=== PATIENT | male | born 1965 | race African-American/Black ===

== ENCOUNTER → 2017-07-30 | Outpatient (CLI) | payer SELFPAY ==
--- NOTE | 2017-07-30 13:13 | Diagnostic Imaging Report ---
PROCEDURE: US carotid duplex, bilateral. TECHNIQUE: Multiple real-time grayscale images were obtained over the carotid arteries in various projections, bilaterally. Additional duplex Doppler and color Doppler images were also obtained. INDICATION: Near syncope for several years. TECHNIQUE: Multiple real-time images with color Doppler imaging were performed. Doppler velocity and waveform data were obtained. The cervical carotid and vertebral arteries were evaluated. FINDINGS: Color and grayscale images demonstrate mild scattered atheromatous plaque and areas of intimal thickening involving the carotid arteries, particularly at the carotid bifurcations. However, there are no abnormally elevated velocities or findings to suggest significant stenosis of the carotid arteries at this time. External carotid arteries are patent. Vertebral arteries are with antegrade direction of flow. IMPRESSION: 1. Carotid Doppler imaging demonstrates no findings to suggest a hemodynamically significant stenosis at this time. Parameters based on the consensus panel Leal-Scale and Doppler ultrasound criteria published December 2002, Radiology, Volume 229. DOPPLER (peak systolic velocity M/S Right Left CCA 1.05 1.08 ICA Proximal .74 1.03 ICA Mid .67 .92 ICA Distal .65 .79 RATIO .7 1.0 ECA .71 .99 VERT .37 .45 Dictated by: Dictated on workstation # [id number]
== END ==
LOC: RAD 10:54
PROVIDERS: ATTEND Internal Medicine
DX: R55 Syncope and collapse (principal)
CPT/HCPCS: 93880

== ENCOUNTER → 2018-01-31 | Outpatient (CLI) | payer MEDICAID ==
--- NOTE | 2018-01-31 13:07 | Diagnostic Imaging Report ---
PROCEDURE: MR imaging of the brain without contrast. TECHNIQUE: Multiplanar, multisequence MR imaging of the brain was performed without contrast. INDICATION: Syncopal type episodes. COMPARISON: No priors. FINDINGS: There are no foci of abnormal diffusion restriction. There are no findings of an acute or subacute intracranial ischemic infarct. There are no findings of acute or chronic hemorrhage. There is no abnormal extra-axial fluid collection. There is no focal or generalized cerebral edema. Incidental ventricular variant with a cavum septum pellucidum present. There is no hydrocephalus. No suspicious white matter signal abnormalities. Orbits, paranasal sinuses, mastoids, and cerebellopontine angles have an unremarkable appearance. The midline structures are nondisplaced. No calvarial signal abnormality apparent. IMPRESSION: This is a normal brain MRI. Dictated by: Dictated on workstation # [id number]
== END ==
LOC: RAD 11:07
PROVIDERS: ATTEND Internal Medicine
DX: G40.A09 Absence epileptic syndrome, not intractable, without status epilepticus (principal); R55 Syncope and collapse
CPT/HCPCS: 70551

== ENCOUNTER 2018-04-01 14:12 | Observation (INO) | payer MEDICAID ==
[~2018-04-01] VITALS: Ht 175.3 cm; Wt 87.1 kg
--- NOTE | 2018-04-01 14:57 | NUR ---
JAMIE ECHAVARRIA admitted to room 411-1, with an admitting diagnosis of diverticulitis , on 04/01/[address] Bynum office (direct admit), accompanied by .JAMIE ECHAVARRIA introduced to surroundings, call light, bed controls, phone, TV, temperature control, lights, meal times, smoking policy, visitor policy, side rail policy, bathrooms and showers. Patient Rights given to patient in the handbook. JAMIE ECHAVARRIA verbalizes understanding that [facility] is not responsible for the loss or damage to any personal effects or valuables that are kept in the patients posession during their hospitalization. The following Patient Care Plans and discharge plans were discussed with the patient. JAMIE ECHAVARRIA verbalizes understanding of Interdisciplinary Patient Education.
[2018-04-01] MEDS ORDERED: PIPERACILLIN/TAZO 4.5 GM/NS 100 ML IV NR ×2 (15:06)
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
--- OUTSIDE RECORDS SUMMARY | 2018-04-01 15:09 | XMS REPORT ---
Author Author DONALDO PEREZ Organization [facility] Address [address] [place] [address] Care Team Providers Care Tester Operator Name Role Phone DONALDO PEREZ Unavailable PROBLEMS Type Condition ICD9-CM Code XQI17-UI Code Onset Dates Condition Status SNOMED Code Problem Adjustment disorder with mixed emotional features F43.29 Active 41398863 Problem Chronic polyneuropathy G62.9 Active 22091892 Problem Arthritis M19.90 Active 1492301 Problem Reactive depression F32.9 Active 78737919 Problem Neuropathy G62.9 Active 849849055 Problem History of gout Z87.39 Active 979441428 Problem Near syncope R55 Active 055566657 ALLERGIES No Information ENCOUNTERS Encounter Location Date Diagnosis [facility] [id number] [place] [address] 69768- 2443 Nov, [facility] [id number] [place] [address] 96137- 0621 17 Oct, 2017 Adjustment disorder with mixed emotional features F43.29 [facility] [id number] [place] [address] 10396- 1524 12 Oct, 2017 [facility] [id number] [place] [address] 36719- 6710 Oct, [facility] [id number] [place] [address] 04462- 4735 10 Oct, 2017 Neuropathy G62.9 [facility] [id number] [place] [address] 89145- 3714 16 Sep, 2017 Chronic polyneuropathy G62.9 [facility] [id number] [place] [address] 74544- 4734 15 Sep, 2017 [facility] [id number] [place] [address] 83207- 9848 Sep, Adjustment disorder with mixed emotional features F43.29 [place] [address] [place] [address] 61772- 7991 Sep, Neuropathy G62.9 [facility] [address] [place] [address] 41133- 3565 Sep, Neuropathy G62.9 and Arthritis M19.90 [place] [id number] [place] [address] 62280- 1507 Aug, [place] [id number] [place] [address] 88557- 5116 Aug, Adjustment disorder with mixed emotional features F43.29 [place] [address] [place] [address] 80418- 4665 Aug, [place] [id number] [place] [address] 91797- 6983 Aug, [place] [id number] [place] [address] 03676- 4955 Aug, Neuropathy G62.9 ; Reactive depression F32.9 ; History of gout Z87.39 and Arthritis M19.90 [place] [address] [place] [address] 71275- 2008 Jul, [place] [address] [place] [address] 68025- 1670 Jul, [place] [id number] [place] [address] 68807- 1168 Jul, Neuropathy G62.9 ; History of gout Z87.39 ; Routine adult health maintenance Z00.00 ; Near syncope R55 and Reactive depression F32.9 IMMUNIZATIONS No Known Immunizations SOCIAL HISTORY Never Assessed REASON FOR VISIT Refill request PLAN OF CARE VITAL SIGNS MEDICATIONS Unknown [...]
--- OUTSIDE RECORDS SUMMARY | 2018-04-01 15:09 | XMS REPORT ---
Author Author DONALDO PEREZ Organization [facility] Address [address] [place] [address] Care Team Providers Care Rn Clinical Review Name Role Phone DONALDO PEREZ Unavailable PROBLEMS Type Condition ICD9-CM Code [id number] Code Onset Dates Condition Status SNOMED Code Problem Adjustment disorder with mixed emotional features F43.29 Active 63945601 Problem Chronic polyneuropathy G62.9 Active 97581021 Problem Arthritis M19.90 Active 7920628 Problem Reactive depression F32.9 Active 39133959 Problem Neuropathy G62.9 Active 445784042 Problem History of gout Z87.39 Active 384385221 Problem Near syncope R55 Active 839401100 ALLERGIES No Information ENCOUNTERS Encounter Location Date Diagnosis [facility] [id number] [place] [address] 33259- 6959 Nov, [facility] [id number] [place] [address] 21196- 6972 17 Oct, 2017 Adjustment disorder with mixed emotional features F43.29 [facility] [id number] [place] [address] 80344- 2584 12 Oct, 2017 [facility] [id number] [place] [address] 68393- 8791 Oct, [facility] [id number] [place] [address] 54943- 4574 10 Oct, 2017 Neuropathy G62.9 [facility] [id number] [place] [address] 41961- 7480 16 Sep, 2017 Chronic polyneuropathy G62.9 [facility] [id number] [place] [address] 71666- 3794 15 Sep, 2017 [facility] [id number] [place] [address] 90263- 4014 Sep, Adjustment disorder with mixed emotional features F43.29 [place] [id number] [place] [address] 90872- 4047 Sep, Neuropathy G62.9 [place] [address] [place] [address] 30366- 2331 Sep, Neuropathy G62.9 and Arthritis M19.90 [place] [id number] [place] [address] 22407- 4285 Aug, [place] [id number] [place] [address] 19848- 4613 Aug, Adjustment disorder with mixed emotional features F43.29 [place] [address] [place] [address] 99437- 7444 Aug, [place] [id number] [place] [address] 63968- 5237 Aug, [place] [id number] [place] [address] 23595- 0623 Aug, Neuropathy G62.9 ; Reactive depression F32.9 ; History of gout Z87.39 and Arthritis M19.90 [place] [address] [place] [address] 81267- 9035 Jul, [place] [address] [place] [address] 55928- 0556 Jul, [place] [id number] [place] [address] 17885- 0579 Jul, Neuropathy G62.9 ; History of gout Z87.39 ; Routine adult health maintenance Z00.00 ; Near syncope R55 and Reactive depression F32.9 IMMUNIZATIONS No Known Immunizations SOCIAL HISTORY Never Assessed REASON FOR VISIT Controlled Med Refill PLAN OF CARE VITAL SIGNS MEDICATIONS Medication Instructions Dosage Frequency Start Date End Date Duration Status Lyrica 100 mg Orally Three times a day 1 capsule 8h Jul, Active RESULTS No Results PROCEDURES No Known procedures [...]
--- OUTSIDE RECORDS SUMMARY | 2018-04-01 15:09 | XMS REPORT ---
Author Author DONALDO PEREZ Organization [facility] Address [address] [place] [address] Care Team Providers Care Mold Builder Name Role Phone DONALDO PEREZ Unavailable PROBLEMS Type Condition ICD9-CM Code [id number] Code Onset Dates Condition Status SNOMED Code Problem Adjustment disorder with mixed emotional features F43.29 Active 03323094 Problem Chronic polyneuropathy G62.9 Active 53705009 Problem Arthritis M19.90 Active 8344199 Problem Reactive depression F32.9 Active 23572153 Problem Neuropathy G62.9 Active 128649452 Problem History of gout Z87.39 Active 306613394 Problem Near syncope R55 Active 027378317 ALLERGIES No Information ENCOUNTERS Encounter Location Date Diagnosis [facility] [id number] [place] [address] 31500- 7806 Nov, [facility] [id number] [place] [address] 66536- 7787 17 Oct, 2017 Adjustment disorder with mixed emotional features F43.29 [facility] [id number] [place] [address] 37995- 7051 12 Oct, 2017 [facility] [id number] [place] [address] 56071- 6216 Oct, [facility] [id number] [place] [address] 06621- 8984 10 Oct, 2017 Neuropathy G62.9 [facility] [id number] [place] [address] 91942- 2261 16 Sep, 2017 Chronic polyneuropathy G62.9 [facility] [id number] [place] [address] 01137- 0514 15 Sep, 2017 [facility] [id number] [place] [address] 44849- 5228 Sep, Adjustment disorder with mixed emotional features F43.29 [place] [id number] [place] [address] 23435- 4183 Sep, Neuropathy G62.9 [place] [address] [place] [address] 41263- 0693 Sep, Neuropathy G62.9 and Arthritis M19.90 [place] [id number] [place] [address] 46919- 2854 Aug, [place] [id number] [place] [address] 26731- 3492 Aug, Adjustment disorder with mixed emotional features F43.29 [place] [address] [place] [address] 16241- 7113 Aug, [place] [id number] [place] [address] 86206- 1114 Aug, [place] [id number] [place] [address] 26107- 2088 Aug, Neuropathy G62.9 ; Reactive depression F32.9 ; History of gout Z87.39 and Arthritis M19.90 [place] [address] [place] [address] 46635- 1614 Jul, [place] [address] [place] [address] 01117- 4209 Jul, [place] [id number] [place] [address] 28345- 0034 Jul, Neuropathy G62.9 ; History of gout Z87.39 ; Routine adult health maintenance Z00.00 ; Near syncope R55 and Reactive depression F32.9 IMMUNIZATIONS No Known Immunizations SOCIAL HISTORY Never Assessed REASON FOR VISIT Requests return call PLAN OF CARE VITAL SIGNS MEDICATIONS Medication Instructions Dosage Frequency Start Date End Date Duration Status Gabapentin 300 MG Orally 3 times a day 1 capsule 8h 30 days Active RESULTS No Results PROCEDURES No Known [...]
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
--- OUTSIDE RECORDS SUMMARY | 2018-04-01 15:09 | XMS REPORT ---
Author Author DONALDO PEREZ Organization [facility] Address [address] [place] [address] Care Team Providers Care Stud Setter Name Role Phone DONALDO PEREZ Unavailable PROBLEMS Type Condition ICD9-CM Code SFG42-XL Code Onset Dates Condition Status SNOMED Code Problem Adjustment disorder with mixed emotional features F43.29 Active 68738022 Problem Chronic polyneuropathy G62.9 Active 68423760 Problem Arthritis M19.90 Active 9442126 Problem Reactive depression F32.9 Active 93776087 Problem Neuropathy G62.9 Active 021614040 Problem History of gout Z87.39 Active 102445165 Problem Near syncope R55 Active [id number] ALLERGIES No Information ENCOUNTERS Encounter Location Date Diagnosis [facility] [address] [place] [id number] [place] [address] 89920- 1094 Nov, [facility] [address] [place] [id number] [place] [address] 10708- 0843 17 Oct, 2017 Adjustment disorder with mixed emotional features F43.29 [facility] [address] [place] [id number] [place] [address] 88894- 6608 12 Oct, 2017 [facility] [address] [place] [id number] [place] [address] 34303- 6951 Oct, [facility] [address] [place] [id number] [place] [address] 06464- 9083 10 Oct, 2017 Neuropathy G62.9 [facility] [address] [place] [id number] [place] [address] 16150- 9453 16 Sep, 2017 Chronic polyneuropathy G62.9 [facility] [address] [place] [id number] [place] [address] 06200- 2961 15 Sep, 2017 [facility] [address] [place] [id number] [place] [address] 41343- 4446 Sep, Adjustment disorder with mixed emotional features F43.29 [place] [address] [place] [id number] [place] [address] 84370- 0288 Sep, Neuropathy G62.9 [place] [address] [place] [address] 59581- 8498 Sep, Neuropathy G62.9 and Arthritis M19.90 [place] [address] [place] [id number] [place] [address] 29677- 6587 Aug, [place] [address] [place] [id number] [place] [address] 52749- 4643 Aug, Adjustment disorder with mixed emotional features F43.29 [place] [address] [place] [address] 40735- 0601 Aug, [place] [address] [place] [id number] [place] [address] 91782- 4548 Aug, [place] [address] [place] [id number] [place] [address] 14376- 7801 Aug, Neuropathy G62.9 ; Reactive depression F32.9 ; History of gout Z87.39 and Arthritis M19.90 [place] [address] [place] [address] 90411- 5302 Jul, [place] [address] [place] [address] 60013- 4471 Jul, [place] [address] [place] [id number] [place] [address] 00278- 9697 Jul, Neuropathy G62.9 ; History of gout Z87.39 ; Routine adult health maintenance Z00.00 ; Near syncope R55 and Reactive depression F32.9 IMMUNIZATIONS No Known Immunizations SOCIAL HISTORY Never Assessed REASON FOR VISIT Medication refill request PLAN OF CARE VITAL SIGNS MEDICATIONS Medication Instructions Dosage Frequency Start Date End Date Duration Status Gabapentin 600 MG Orally 3 times a [...]
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
--- OUTSIDE RECORDS SUMMARY | 2018-04-01 15:10 | XMS REPORT ---
Author Author DONALDO PEREZ Organization [facility] Address [address] [place] [address] Care Team Providers Care Securities Counselor Name Role Phone DONALDO PEREZ Unavailable PROBLEMS Type Condition ICD9-CM Code CQO41-SC Code Onset Dates Condition Status SNOMED Code Problem Adjustment disorder with mixed emotional features F43.29 Active 15994519 Problem Chronic polyneuropathy G62.9 Active 70583770 Problem Arthritis M19.90 Active 7383929 Problem Reactive depression F32.9 Active 22731719 Problem Neuropathy G62.9 Active 475961132 Problem History of gout Z87.39 Active 682999001 Problem Near syncope R55 Active 836722776 ALLERGIES No Known Allergies ENCOUNTERS Encounter Location Date Diagnosis [facility] [address] [place] [id number] [place] [address] 91210- 7012 Oct, [facility] [address] 54739- 1347 Sep, Chronic polyneuropathy G62.9 [facility] [address] [place] [id number] [place] [address] 55573- 0369 Sep, [facility] [address] [place] [id number] [place] [address] 93543- 6888 Sep, Adjustment disorder with mixed emotional features F43.29 [facility] [address] [place] [id number] [place] [address] 35064- 0488 Sep, Neuropathy G62.9 [facility] [address] [place] [id number] [place] [address] 38208- 9159 Sep, Neuropathy G62.9 and Arthritis M19.90 [facility] [address] [place] [id number] [place] [address] 07031- 6359 Aug, [place] [address] [address]- 1631 Aug, Adjustment disorder with mixed emotional features F43.29 [place] [address] [place] [id number] [place] [address] 00895- 0405 Aug, [place] [address] [place] [address] 62078- 2084 Aug, [place] [address] [place] [id number] [place] [address] 27477- 1879 Aug, Neuropathy G62.9 ; Reactive depression F32.9 ; History of gout Z87.39 and Arthritis M19.90 [place] [address] [place] [id number] [place] [address] 02089- 1860 Jul, [place] [address] [place] [id number] [place] [address] 96998- 6223 Jul, [place] [address] [place] [id number] [place] [address] 58533- 4057 Jul, Neuropathy G62.9 ; History of gout Z87.39 ; Routine adult health maintenance Z00.00 ; Near syncope R55 and Reactive depression F32.9 IMMUNIZATIONS No Known Immunizations SOCIAL HISTORY Never Assessed REASON FOR VISIT HOLLIS Brasher/Idris SOW, concerns wit right hand gripping and bruises in legs and frequent dizzyness, PT also has been having issues staying focused PLAN OF CARE Activity Details Follow Up 4 Weeks Reason: VITAL SIGNS Height 68.5 in 2017-08-26 Weight 197.7 lbs 2017-08-26 Temperature 98.6 degrees Fahrenheit 2017-08-26 Heart Rate 74 bpm 2017-08-26 Respiratory Rate 20 2017-08-26 Oximetry 97 % 2017-08-26 BMI 29.62 kg/m2 2017-08-26 Blood pressure systolic 134 mmHg 2017-08-26 Blood pressure diastolic 80 mmHg 2017-08-26 MEDICATIONS Medication Instructions Dosage Frequency Start Date End Date Duration Status Allopurinol 300 MG Orally Once a day 1 tablet 24h Active Lyrica 100 mg Orally Three times a day 1 capsule 8h Jul, Active Wellbutrin SR 100 mg Orally Once a day 1 tablet in the morning 24h Aug, 30 day(s) Active Calcipotriene 0.005 % Externally Twice a day 1 application to affected area 12h Active Meloxicam 15 mg Orally Once a day 1 tablet 24h Active RESULTS No Results PROCEDURES No Known [...]
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
--- OUTSIDE RECORDS SUMMARY | 2018-04-01 15:10 | XMS REPORT ---
Author Author DONALDO PEREZ Organization [facility] Address [address] [place] [address] Care Team Providers Care Lead Database Developer Name Role Phone DONALDO PEREZ Unavailable PROBLEMS Type Condition ICD9-CM Code SCX30-XB Code Onset Dates Condition Status SNOMED Code Problem Adjustment disorder with mixed emotional features F43.29 Active 84539280 Problem Chronic polyneuropathy G62.9 Active 25433713 Problem Arthritis M19.90 Active 8447366 Problem Reactive depression F32.9 Active 85871707 Problem Neuropathy G62.9 Active 725830632 Problem History of gout Z87.39 Active 510156949 Problem Near syncope R55 Active 119180814 ALLERGIES No Information ENCOUNTERS Encounter Location Date Diagnosis [facility] [id number] [place] [address] 70411- 9535 Oct, [facility] [address] 31224- 3339 Sep, Chronic polyneuropathy G62.9 [facility] [id number] [place] [address] 74795- 3075 Sep, [facility] [id number] [place] [address] 62791- 9677 Sep, Adjustment disorder with mixed emotional features F43.29 [facility] [id number] [place] [address] 36339- 1133 Sep, Neuropathy G62.9 [facility] [address] 13419- 0788 Sep, Neuropathy G62.9 and Arthritis M19.90 [facility] [id number] [place] [address] 36467- 0557 Aug, [facility] [address], [place] [address]- 6515 Aug, Adjustment disorder with mixed emotional features F43.29 [place] [id number] [place] [address] 52162- 7535 Aug, [facility] [address] [place] [address] 26906- 2402 Aug, [facility] [id number] [place] [address] 91349- 1330 Aug, Neuropathy G62.9 ; Reactive depression F32.9 ; History of gout Z87.39 and Arthritis M19.90 [place] [id number] [place] [address] 88595- 4059 Jul, [place] [id number] [place] [address] 13246- 8730 Jul, [place] [id number] [place] [address] 44898- 1472 Jul, Neuropathy G62.9 ; History of gout Z87.39 ; Routine adult health maintenance Z00.00 ; Near syncope R55 and Reactive depression F32.9 IMMUNIZATIONS No Known Immunizations SOCIAL HISTORY Never Assessed REASON FOR VISIT Prior Authorization Approved PLAN OF CARE VITAL SIGNS MEDICATIONS Unknown [...]
--- OUTSIDE RECORDS SUMMARY | 2018-04-01 15:10 | XMS REPORT ---
Author Author MARIBEL LOPEZ [facility] Address [address] [place] [address] Care Team Providers Care Operations Support Coordinator Name Role Phone MARIBEL LOPEZ Unavailable PROBLEMS Type Condition ICD9-CM Code MYA66-OY Code Onset Dates Condition Status SNOMED Code Problem Adjustment disorder with mixed emotional features F43.29 Active 15628059 Problem Chronic polyneuropathy G62.9 Active 84032911 Problem Arthritis M19.90 Active 4685439 Problem Reactive depression F32.9 Active 05016026 Problem Neuropathy G62.9 Active 407601488 Problem History of gout Z87.39 Active 751763542 Problem Near syncope R55 Active 718750636 ALLERGIES No Information ENCOUNTERS Encounter Location Date Diagnosis [facility] [id number] [place] [address] 72359- 7989 Oct, [facility] [id number] [place] [address] 91795- 0616 Sep, Chronic polyneuropathy G62.9 [facility] [id number] [place] [address] 93790- 7912 Sep, [facility] [id number] [place] [address] 27339- 8166 Sep, Adjustment disorder with mixed emotional features F43.29 [facility] [id number] [place] [address] 59692- 6064 13 Sep, 2017 Neuropathy G62.9 [facility] [id number] [place] [address] 27004- 2485 Sep, Neuropathy G62.9 and Arthritis M19.90 [facility] [id number] [place] [address] 08328- 2051 Aug, [facility] [address], [place] [address]- 8004 Aug, Adjustment disorder with mixed emotional features F43.29 [place] [address] [place] [address] 03575- 9986 Aug, [facility] [facility] [id number] [place] [address] 86696- 2122 Aug, [facility] [facility] [id number] [place] [address] 81023- 9641 Aug, Neuropathy G62.9 ; Reactive depression F32.9 ; History of gout Z87.39 and Arthritis M19.90 [place] [facility] [id number] [place] [address] 61723- 9619 Jul, [facility] [facility] [id number] [place] [address] 73988- 2629 Jul, [facility] [facility] [id number] [place] [address] 25036- 5517 Jul, Neuropathy G62.9 ; History of gout Z87.39 ; Routine adult health maintenance Z00.00 ; Near syncope R55 and Reactive depression F32.9 IMMUNIZATIONS No Known Immunizations SOCIAL HISTORY Never Assessed REASON FOR VISIT Requests return call PLAN OF CARE VITAL SIGNS MEDICATIONS Unknown [...]
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
--- OUTSIDE RECORDS SUMMARY | 2018-04-01 15:10 | XMS REPORT ---
Author Author DONALOD PEREZ Organization [facility] Address [address] [place] [address] Care Team Providers Care Oil Well Pumper Name Role Phone DONALDO PEREZ Unavailable PROBLEMS Type Condition ICD9-CM Code EZO54-KY Code Onset Dates Condition Status SNOMED Code Problem Adjustment disorder with mixed emotional features F43.29 Active 77109363 Problem Chronic polyneuropathy G62.9 Active 63381145 Problem Arthritis M19.90 Active 7091628 Problem Reactive depression F32.9 Active 05388377 Problem Neuropathy G62.9 Active 452165489 Problem History of gout Z87.39 Active 112565298 Problem Near syncope R55 Active 233219317 ALLERGIES No Information ENCOUNTERS Encounter Location Date Diagnosis [facility] [id number] [place] [address] 19098- 7530 Oct, [facility] [address] 62355- 2772 Sep, Chronic polyneuropathy G62.9 [facility] [id number] [place] [address] 06928- 5129 Sep, [facility] [id number] [place] [address] 14649- 3810 Sep, Adjustment disorder with mixed emotional features F43.29 [facility] [id number] [place] [address] 97829- 4245 13 Sep, 2017 Neuropathy G62.9 [facility] [address] 05828- 5380 09 Sep, 2017 Neuropathy G62.9 and Arthritis M19.90 [facility] [id number] [place] [address] 53323- 9669 Aug, [facility] [address], [place] [address]- 8007 Aug, Adjustment disorder with mixed emotional features F43.29 [facility] [address] [place] [address] 82978- 2517 Aug, [facility] [address] [place] [address] 54428- 5699 Aug, [facility] [id number] [place] [address] 80174- 7595 Aug, Neuropathy G62.9 ; Reactive depression F32.9 ; History of gout Z87.39 and Arthritis M19.90 [place] [id number] [place] [address] 50681- 4902 Jul, [facility] [id number] [place] [address] 10005- 0900 Jul, [place] [id number] [place] [address] 60344- 0798 Jul, Neuropathy G62.9 ; History of gout Z87.39 ; Routine adult health maintenance Z00.00 ; Near syncope R55 and Reactive depression F32.9 IMMUNIZATIONS No Known Immunizations SOCIAL HISTORY Never Assessed REASON FOR VISIT schedule appt PLAN OF CARE VITAL SIGNS MEDICATIONS Unknown [...]
--- OUTSIDE RECORDS SUMMARY | 2018-04-01 15:10 | XMS REPORT ---
Author Author DONALDO PEREZ Organization [facility] Address [address] [place] [address] Care Team Providers Care Healthcare Corporate Account Director Name Role Phone DONALDO PEREZ Unavailable PROBLEMS Type Condition ICD9-CM Code YOZ19-HX Code Onset Dates Condition Status SNOMED Code Problem Adjustment disorder with mixed emotional features F43.29 Active 82676848 Problem Chronic polyneuropathy G62.9 Active 36182395 Problem Arthritis M19.90 Active 2838487 Problem Reactive depression F32.9 Active 11398345 Problem Neuropathy G62.9 Active 256946239 Problem History of gout Z87.39 Active 760777480 Problem Near syncope R55 Active 564327281 ALLERGIES No Information ENCOUNTERS Encounter Location Date Diagnosis [facility] [id number] [place] [address] 05567- 0812 17 Oct, 2017 [facility] [id number] [place] [address] 85732- 0446 12 Oct, 2017 [facility] [id number] [place] [address] 17979- 5435 Oct, [facility] [id number] [place] [address] 92966- 5881 10 Oct, 2017 Neuropathy G62.9 [facility] [id number] [place] [address] 38842- 6585 16 Sep, 2017 Chronic polyneuropathy G62.9 [facility] [id number] [place] [address] 14939- 5202 15 Sep, 2017 [facility] [id number] [place] [address] 27488- 7634 Sep, Adjustment disorder with mixed emotional features F43.29 [facility] [id number] [place] [address] 42237- 1416 Sep, Neuropathy G62.9 [facility] [address], [place] [address]- 0472 Sep, Neuropathy G62.9 and Arthritis M19.90 [facility] [address] [place] [address] 19836- 1838 Aug, [facility] [id number] [place] [address] 39926- 7477 Aug, Adjustment disorder with mixed emotional features F43.29 [place] [id number] [place] [address] 03170- 4516 Aug, [place] [id number] [place] [address] 94008- 1426 Aug, [facility] [address] [place] [address] 28300- 3642 Aug, Neuropathy G62.9 ; Reactive depression F32.9 ; History of gout Z87.39 and Arthritis M19.90 [facility] [address], [place] [address]- 6782 Jul, [place] [id number] [place] [address] 07620- 5155 Jul, [facility] [address], [place] [address]- 1177 Jul, Neuropathy G62.9 ; History of gout Z87.39 ; Routine adult health maintenance Z00.00 ; Near syncope R55 and Reactive depression F32.9 IMMUNIZATIONS No Known Immunizations SOCIAL HISTORY Never Assessed REASON FOR VISIT Eye Exam PLAN OF CARE VITAL SIGNS MEDICATIONS Unknown [...]
--- OUTSIDE RECORDS SUMMARY | 2018-04-01 15:10 | XMS REPORT ---
Author Author DONALDO PEREZ Organization [facility] Address [address] [place] [address] Care Team Providers Care Stave Mill Hand Name Role Phone DONALDO PEREZ Unavailable PROBLEMS Type Condition ICD9-CM Code UGO15-IL Code Onset Dates Condition Status SNOMED Code Problem Adjustment disorder with mixed emotional features F43.29 Active 81655039 Problem Chronic polyneuropathy G62.9 Active 36307465 Problem Arthritis M19.90 Active 8019461 Problem Reactive depression F32.9 Active 64314018 Problem Neuropathy G62.9 Active 716475723 Problem History of gout Z87.39 Active 203155249 Problem Near syncope R55 Active 127715758 ALLERGIES No Information ENCOUNTERS Encounter Location Date Diagnosis [facility] [id number] [place] [address] 69909- 6570 Nov, [facility] [id number] [place] [address] 40223- 3779 17 Oct, 2017 Adjustment disorder with mixed emotional features F43.29 [facility] [address] [place] [address] 04709- 5251 12 Oct, 2017 [facility] [id number] [place] [address] 15391- 4306 Oct, [facility] [id number] [place] [address] 39503- 1101 10 Oct, 2017 Neuropathy G62.9 [facility] [id number] [place] [address] 37255- 9832 16 Sep, 2017 Chronic polyneuropathy G62.9 [facility] [id number] [place] [address] 17236- 6031 15 Sep, 2017 [facility] [id number] [place] [address] 54797- 0862 Sep, Adjustment disorder with mixed emotional features F43.29 [place] [id number] [place] [address] 11492- 0752 Sep, Neuropathy G62.9 [place] [address] [place] [address] 75419- 5574 Sep, Neuropathy G62.9 and Arthritis M19.90 [place] [id number] [place] [address] 51340- 8958 Aug, [place] [id number] [place] [address] 06859- 1591 Aug, Adjustment disorder with mixed emotional features F43.29 [place] [address] [place] [address] 49945- 3570 Aug, [place] [id number] [place] [address] 00212- 1507 Aug, [place] [id number] [place] [address] 34551- 3410 Aug, Neuropathy G62.9 ; Reactive depression F32.9 ; History of gout Z87.39 and Arthritis M19.90 [place] [address] [place] [address] 43845- 7289 Jul, [place] [address] [place] [address] 77229- 5931 Jul, [place] [id number] [place] [address] 90200- 8592 Jul, Neuropathy G62.9 ; History of gout [...]
[2018-04-01] MEDS ORDERED: CATHETER FLUSH 10 ML SYR IV PRN ×2 (15:15→17:30)
[2018-04-01] MEDS: LACTATED RINGERS 1,000 ML IV SCH (15:39)
[2018-04-01] MEDS: PANTOPRAZOLE 40 MG (PROTONIX) VIAL IV SCH (15:40)
[2018-04-01] MEDS ORDERED: CIPR500T4 PO (15:46)
[2018-04-01] MEDS ORDERED: NICOTINE 21 MG (NICODERM) PATCH ONE (15:46)
[2018-04-01] MEDS ORDERED: METR-145 PO (15:46)
[2018-04-01] MEDS ORDERED: ASCO-262 PO (15:46)
[2018-04-01] MEDS ORDERED: ACET-2267 PO (15:46)
[2018-04-01] MEDS ORDERED: CYAN10006 PO (15:46)
[2018-04-01] MEDS ORDERED: GBPN600T PO (15:49)
[2018-04-01] MEDS ORDERED: MELO15TA39 PO (15:49)
[2018-04-01] MEDS ORDERED: ALLO300T2 PO (15:49)
[2018-04-01] MEDS ORDERED: GABA-488 PO (15:49)
[2018-04-01] MEDS: morphine INJ 4 MG/ML 1 ML (VIAL/SYRINGE) IV PRN ×3 (15:58→20:58)
[2018-04-01] MEDS: ONDANSETRON 4 MG/2 ML (SDV) Z0FRAN IV PRN (15:58)
[2018-04-01] MEDS ORDERED: FLU QUADRIvalent (5+ YOA) 2018-2019 (AFLURIA) 0.5 ML IM ONE (16:00)
[2018-04-01 16:01] VITALS: BP 101/59
--- NOTE | 2018-04-01 16:03 | NUR ---
SPOKE WITH THE PATIENT ABOUT HIS MEDICATIONS. HE LISTED WHAT HE IS TAKING AND I CALLED [facility] IN [place] TO VERIFY. IN ADDITION TO WHAT IS SHOWN ON THE EXT MED HX [facility] FILLED: 03-17-18 MOBIC 15MG DAILY #30 10-29-17 GABAPENTIN 300MG TID #90 (STATED 600 TID HOWEVER HAS NOT FILLED THAT STRENGTH AND 300MG IS PAST DUE FOR REFILL) 08-05 ALLOPURINOL 300MG DAILY HE STATES HE IS TAKING THE CIPRO AND FLAGYL HE HAD FILLED ON 03-27-18 - THE PERCOCET HE RECEIVED THAT DAY IS NOW GONE. HE TAKES TYLENOL PRN, VITAMIN C DAILY, AND B12 DAILY OTC.
[2018-04-01 16:26] LABS: HEMOGLOBIN 14.2 G/DL (13.3-17.7); MEAN PLATELET VOLUME 11.6 FL (7.4-10.4); RED CELL DISTRIBUTION WIDTH 12.9 % (10.0-14.5); WHITE BLOOD COUNT 4.3 10^3/uL (4.3-11.0)
[2018-04-01 16:40] LABS: ALANINE AMINOTRANSFERASE 48 U/L (0-55); ALBUMIN 4.3 GM/DL (3.2-4.5); ALKALINE PHOSPHATASE 71 U/L (40-136); BILIRUBIN,TOTAL 0.7 MG/DL (0.1-1.0); BUN/CREATININE RATIO 10; CALCIUM 9.3 MG/DL (8.5-10.1); CARBON DIOXIDE 25 MMOL/L (21-32); CHLORIDE 107 MMOL/L (98-107); CREATININE SERUM 1.15 MG/DL (0.60-1.30); GFR ESTIMATED > 60; GLUCOSE 98 MG/DL (70-105); POTASSIUM 3.8 MMOL/L (3.6-5.0); SODIUM 140 MMOL/L (135-145); TOTAL PROTEIN 6.8 GM/DL (6.4-8.2)
[2018-04-01] MEDS ORDERED: IOHEXOL 350 MG/ML 100 ML (OMNIPAQUE 350) VIAL IV ONE (17:30)
[2018-04-01] MEDS ORDERED: RECEIVED CONTRAST (Hold Metformin) IV SCH (17:30)
[2018-04-01] MEDS ORDERED: NS 100 ML (IVPB) BAG IV ONE (17:30)
--- NOTE | 2018-04-01 19:42 | Diagnostic Imaging Report ---
PROCEDURE: CT abdomen and pelvis with contrast. TECHNIQUE: Multiple contiguous axial images were obtained through the abdomen and pelvis after administration of intravenous contrast. INDICATION: Upper abdominal pain as well as left lower quadrant pain for three weeks. COMPARISON: No prior studies are available for comparison. FINDINGS: The lung bases are clear. No discrete liver mass is identified. The gallbladder is unremarkable. No biliary ductal dilatation is identified. The pancreas and spleen are unremarkable. No adrenal mass is identified. The kidneys are unremarkable. The aorta is non-aneurysmal. Bowel loops appear to be nonobstructed. The appendix is visualized in the right lower quadrant and unremarkable. There is no ascites. There is a fat-containing umbilical hernia. No herniated bowel loop is seen. The bladder is unremarkable. No abdominal or pelvic lymphadenopathy is seen. IMPRESSION: 1. Fat-containing umbilical hernia. 2. Otherwise, unremarkable CT of the abdomen and pelvis. No acute feature is detected. Dictated by: Dictated on workstation # [id number]
[2018-04-01] MEDS: PIPERACILLIN/TAZO 4.5 GM/NS 100 ML IV SCH ×2 (20:58)
[2018-04-01 21:00] VITALS: BP 118/77
[2018-04-01 23:28] VITALS: BP 122/68
[2018-04-02] MEDS: LACTATED RINGERS 1,000 ML IV SCH ×3 (00:03→12:06)
[2018-04-02] MEDS: morphine INJ 4 MG/ML 1 ML (VIAL/SYRINGE) IV PRN ×4 (01:11→13:19)
[2018-04-02 04:00] VITALS: BP 105/69
[2018-04-02] MEDS: PIPERACILLIN/TAZO 4.5 GM/NS 100 ML IV SCH ×4 (04:00→13:04)
[2018-04-02 08:00] VITALS: BP 113/74
[2018-04-02] MEDS ORDERED: NICOTINE PATCH REMOVAL TP SCH (08:59)
[2018-04-02] MEDS ORDERED: NICOTINE 21 MG (NICODERM) PATCH TD SCH (09:00)
[2018-04-02] MEDS: PANTOPRAZOLE 40 MG (PROTONIX) VIAL IV SCH (09:33)
--- NOTE | 2018-04-02 10:58 | Progress Note ---
Subjective Time Seen by a Provider: 10:31 Subjective/Events-last exam Pt seen and examined. He states he still has moderate abdominal pain that then causes nausea. He reports pain as mostly midline and left side (upper and lower ). He is having BMs and is hungry. Review of Systems General: No Chills, No Night Sweats Pulmonary: No Dyspnea, No Cough Cardiovascular: No: Chest Pain, Palpitations Gastrointestinal: Nausea, Abdominal Pain; No: Vomiting Genitourinary: Dysuria Objective Exam Vital Signs Date Time Temp Pulse Resp B/P (MAP) Pulse Ox O2 Delivery O2 Flow Rate FiO2 04/02/18 08:00 96.5 65 18 113/74 (87) 97 Room Air 04/02/18 04:00 97.2 68 16 105/69 (81) 97 Room Air 04/01/18 23:28 98.2 72 20 122/68 (86) 97 Room Air 04/01/18 21:00 97.9 70 20 118/77 (91) 96 Room Air 04/01/18 20:00 Room Air 04/01/18 18:21 Room Air 04/01/18 16:01 98.0 72 18 101/59 (73) 96 Room Air I & O 04/02/18 07:00 Intake Total 120 ml Output Total 550 ml Balance -430 ml Capillary Refill : General Appearance: No Apparent Distress, WD/WN HEENT: PERRL/EOMI, Pharynx Normal Respiratory: Chest Non Tender, Lungs Clear, Normal Breath Sounds, No Accessory Muscle Use, No Respiratory Distress Cardiovascular: Regular Rate, Rhythm, No Edema, No Murmur Gastrointestinal: normal bowel sounds, soft, tenderness (midepigastric, LUQ and LLQ), hernia (incarcerated Umbilical hernia) Neurologic/Psychiatric: Alert, Oriented x3, sap pi developer II-XII Norm as Tested Skin: Normal Color, Warm/Dry Results Lab Laboratory Tests 04/01/18 16:10: White Blood Count 4.3, Red Blood Count 4.34L, Hemoglobin 14.2, Hematocrit 42, Mean Corpuscular Volume 98, Mean Corpuscular Hemoglobin 33, Mean Corpuscular Hemoglobin Concent 34, Red Cell Distribution Width 12.9, Platelet Count 93L, Mean Platelet Volume 11.6H, Sodium Level 140, Potassium Level 3.8, Chloride Level 107, Carbon Dioxide Level 25, Anion Gap 8, Blood Urea Nitrogen 12, Creatinine 1.15, Estimat Glomerular Filtration Rate > 60, BUN/Creatinine Ratio 10, Glucose Level 98, Calcium Level 9.3, Corrected Calcium 9.1, Total Bilirubin 0.7, Aspartate Amino Transf (AST/SGOT) 34, Alanine Aminotransferase (ALT/SGPT) 48, Alkaline Phosphatase 71, Total Protein 6.8, Albumin 4.3 Assessment/Plan Assessment/Plan Assessment/Plan 1. Diverticulitis - resolved 2. Incarcerated UH - fat only, no intestine 3. Abdominal pain - unsure if secondary to #1 or #2 or both 4. Nausea Pt has abdominal pain but I am unsure of the etiology. CT from yesterday was read as no acute process, + incarcerated UH. I told pt the results and showed him the films. My recommendation is to go home with pain meds and anti-emetics. I also want him to stop all ABX, I really think it is the ABX causing his nausea. He states he has been having pain with lifting "for a long time". I think he needs a colonscopy as an outpt because of his age and at the same time I can look at his diverticula. As I explained in my office; there is only a 50% chance he will have another occurrence of Diverticulitis. I don't want to do surgery if he doesn't need it, plus at this point I wouldn't even know which part of colon to remove. I will get CD's of films from [facility] and [facility] to go over them. Then we can discuss repairing the incarcerated hernia; which I would not want to do if I thought he would need a colon resection any time soon. He understood all this and all questions answered to his satisfaction. Clinical Quality Measures DVT/VTE Risk/Contraindication: Risk Factor Score Per Nursin RFS Level Per Nursing on Admit: 2=Moderate MISAEL SAMUELS DO Apr 02, 2018 10:58
[2018-04-02] MEDS ORDERED: ONDA8TAB13 PO (11:00)
[2018-04-02] MEDS ORDERED: ACHD5005 PO (11:00)
--- NOTE | 2018-04-02 11:02 | Discharge Inst-Surgical ---
Discharge Inst-Surgical Depart Medication/Instructions New, Converted or Re-Newed RX: RX Given to Pt/Family (Leathafran transmitted to pharmacy) Patient Instructions Follow up Appt: Make appointment for 1 week. [phone] Instructions: No lifting greater than 20 pounds. No strenuous activity. May shower or take bath. Use incentive spirometer at home as directed. No Smoking Symptoms to Report: Appetite Changes, Extremity Discoloration, Numbness/Tingling, Swelling Increased , Bleeding Excessive, Eyesight Changes, Pain Increased, Urine Color Change, Constipation(Persistent), Fever over 101 degree F, Pain/Pressure in chest, Urinating Difficulty, Cough Up/Vomit Blood, Heart Beat Irreg/Pounding, Pain/ Pressure in jaw, Cramps in feet or legs, Lightheadedness, Pain/Pressure in shoulder, Diarrhea(Persistent), Memory Changes Suddenly, Questions/Concerns, Weight gain consecutive days, Dizziness/Fainting, Nausea/Vomiting, Shortness of Breath, Weight gain over 2 pounds If questions or concerns contact your physician Or seek help at emergency department. Activity Activity as Tolerated: Yes Diet Discharge Diet: Low Residue (high fiber, with lots of fluids) Diet After 24 Hours: Clear Liquid if Nauseous MISAEL SAMUELS DO Apr 02, 2018 11:02
[2018-04-02 12:00] VITALS: BP 126/87
[2018-04-02 12:10] LABS: BILIRUBIN,URINE NEGATIVE (NEGATIVE); CLARITY,URINE CLEAR; COLOR,URINE YELLOW; GLUCOSE, URINE (UA) NEGATIVE (NEGATIVE); KETONES,URINE NEGATIVE (NEGATIVE); LEUKOCYTE ESTERASE ,URINE 1+ (NEGATIVE); NITRITE,URINE NEGATIVE (NEGATIVE); PH,URINE 8 (5-9); PROTEIN,URINE NEGATIVE (NEGATIVE); UROBILINOGEN,URINE NORMAL (NORMAL)
[2018-04-02 12:33] LABS: WBC,URINE RARE /HPF
[2018-04-02 12:34] LABS: BACTERIA,URINE NEGATIVE /HPF; SQUAMOUS EPITHELIAL CELL,UR 0-2 /HPF
[2018-04-02] MEDS: ONDANSETRON 4 MG/2 ML (SDV) Z0FRAN IV PRN (13:19)
[2018-04-02] MEDS ORDERED: FLU QUADRIvalent (5+ YOA) 2018-2019 (AFLURIA) 0.5 ML IM ONE (13:45)
[2018-04-02 15:34] VITALS: BP 133/66
[2018-04-02 17:34] VITALS: BP 133/66
--- NOTE | 2018-04-07 10:22 | Physician Query-Final Dx ---
ARY MORELAND 04/07/18 1022: Final Diagnosis Give Final Diagnosis Please give Final Diagnosis MISAEL SAMUELS DO 04/14/18 1447: Final Diagnosis Give Final Diagnosis LLQ and MidEpigastric abdominal pain Resolving Acute Diverticulitis Incarcerated Umbilical Hernia ARY MORELAND Apr 07, 2018 10:22 MISAEL SAMUELS DO Apr 14, 2018 14:47
[2018-04-09] MEDS ORDERED: ACHD5005 PO (12:13)
== END 2018-04-02 10:49 | disposition home or self-care (01) ==
LOC: 4TH 14:30 → UNDOADMIN 14:52 → EDSTATUS 17:25 → UNDODISIN 04-02 17:37
PROVIDERS: ADMIT Surgery; ATTEND Surgery
DX: K57.92 Diverticulitis of intestine, part unspecified, without perforation or abscess without bleeding (principal); K42.0 Umbilical hernia with obstruction, without gangrene; R10.13 Epigastric pain; R10.12 Left upper quadrant pain
CPT/HCPCS: 36415; 74177; 80053; 81000; 85027; 90471; 90686; 99211; G0378

== ENCOUNTER → 2018-04-04 | Outpatient (CLI) | payer MEDICAID | END | disposition home or self-care (01) | LOC: PREOP 10:59 | PROVIDERS: ATTEND Surgery | DX: Z01.818 Encounter for other preprocedural examination (principal) ==

== ENCOUNTER 2018-04-07 09:13 | Day surgery (SDC) | payer MEDICAID ==
[~2018-04-07] VITALS: Ht 175.3 cm; Wt 87.1 kg
[~2018-04-07 09:13] MED LIST: ACET-2267 PO; ACHD5005 PO; ALLO300T2 PO; ASCO-262 PO; CIPR500T4 PO; CYAN10006 PO; GABA-488 PO; GBPN600T PO; MELO15TA39 PO; METR-145 PO; ONDA8TAB13 PO
[2018-04-07] MEDS ORDERED: LACTATED RINGERS 1,000 ML IV STA (09:21)
[2018-04-07] MEDS ORDERED: HURRICAINE EXT TUBE (BENZOCAINE) XX PRN (09:30)
--- NOTE | 2018-04-07 09:34 | Progress Note-Pre Operative ---
Pre-Operative Progress Note H&P Reviewed The H&P was reviewed, patient examined and no changes noted. Time Seen by Provider: 09:30 Date H&P Reviewed: Apr 07, 2018 Time H&P Reviewed: 09:31 Pre-Operative Diagnosis: Screening colonoscopy, abdominal pain, Gastritis MISAEL SAMUELS DO Apr 07, 2018 09:34
[2018-04-07 09:50] VITALS: BP 112/83
[2018-04-07] MEDS ORDERED: MIDAZOLAM 5 MG/5 ML (VERSED) VIAL ONE (10:46)
[2018-04-07] MEDS ORDERED: PROPOFOL INJECTION 50 ML IV ONE (10:46)
[2018-04-07] MEDS ORDERED: HURRICAINE EXT TUBE (BENZOCAINE) ONE (11:30)
--- NOTE | 2018-04-07 11:30 | Progress Note-Post Operative ---
Post-Operative Progess Note Surgeon (s)/Resident Assistant Cna (s) Surgeon MISAEL SAMUELS DO Resident Assistant Cna: none Pre-Operative Diagnosis Screening colonoscopy, abdominal pain, Gastritis Post-Operative Diagnosis Gastritis Sliding Hiatal Hernia Diverticula Mild colitis Internal Hemorrhoids Procedure & Operative Findings Date of Procedure 04/07/18 Procedure Performed/Findings EGD with bx Colon Anesthesia Type IV sedation by PLASTIC SURGERY SPECIALIST Estimated Blood Loss Estimated blood loss (mL): scant Specimens/Packing Specimens Removed Antral bx GE jxn bx MISAEL SAMUELS DO Apr 07, 2018 11:30
--- NOTE | 2018-04-07 11:32 | Endoscopy Discharge Instruct ---
Endo Procedure/Findings Findings 1.: Gastritis 2.: Hiatal Hernia 3.: Diverticulosis 4.: Internal Hemorrhoids Discharge Instructions - Activity: You might feel a little sleepy until tomorrow. This is due to the medicine you received to relax you. Until tomorrow, you should: NOT drive a car, operate machinery or power tools. NOT drink any alcoholic beverages. NOT make any important decisions or sign importortant papers. Do not return to work until tomorrow, unless otherwise instructed. Resume previous activities tomorrow. Diet: Start by taking liquids. If you tolerate liquids, advance to solid food. make an appointment for one week Instructions: 1.: Colonscopy in 10 years Notify Physician - If you experience excessive bleeding, unusual abdominal pain, fever, or chest pain, contact your doctor immediately. Follow-Up: - I have received and understand the above instructions and will call my doctor if I have any further questions. Patient Signature Date Nurse Signature Other (Relationship) MISAEL SAMUELS DO Apr 07, 2018 11:32
[2018-04-07 11:40] VITALS: BP 132/77
[2018-04-07 12:00] VITALS: BP 130/75
--- NOTE | 2018-04-07 13:39 | Anesthesia-General Post-Op ---
MAC Patient Condition Mental Status/LOC: Same as Preop Cardiovascular: Satisfactory Nausea/Vomiting: Absent Respiratory: Satisfactory Pain: Controlled Complications: Absent Post Op Complications Complications None Follow Up Care/Instructions Patient Instructions None needed. Anesthesiology Discharge Order Discharge Order Patient is doing well, no complaints, stable vital signs, no apparent adverse anesthesia problems. No complications reported per nursing. THOM MIRANDA CRNA Apr 07, 2018 13:39
--- NOTE | 2018-04-07 15:04 | OPERATIVE REPORT ---
DATE OF SERVICE: PREOPERATIVE DIAGNOSES: Abdominal pain, gastritis, history of diverticulitis. POSTOPERATIVE DIAGNOSES: 1. Gastritis. 2. Hiatal hernia. 3. Diverticula. 4. Internal hemorrhoids. 5. Mild colitis. SPECIMENS: One biopsy from the antrum, one biopsy from GE junction. BLOOD LOSS: Scant. FLUIDS: Per anesthesia. POSTOPERATIVE CONDITION: Stable. INDICATION FOR PROCEDURE: The patient is a 53-year-old male who has been having some severe abdominal pain with history of possible gastritis. He also has history of diverticulitis and needed a screening colonoscopy. FINDINGS: The patient had a little bit of gastritis, also could get a slightly hiatal hernia and possibly some esophagitis. Biopsy was done. In the colon, he had some diverticula, little bit of mild colitis, was not sure whether this is due to this resolving diverticulitis or scope prep and then he had some very-very minimal internal hemorrhoids. PROCEDURE NOTE: After informed consent was obtained, the patient was brought to the endoscopy suite, placed in the bed in the bed left lateral decubitus position. He was administered IV sedation by the PANTOMIMIST who then monitored his vitals the entire time, blood pressure and pulse ox and the scope was inserted down the mouth through the esophagus into the stomach, pushed into the antrum, took a picture and then pushed into the duodenum. Duodenum looked fine. Pulled back and took a biopsy of the antrum, then retroflexed. I did look like, he had hiatal hernia. Then, we pulled the scope into the esophagus, it looked like it was probably a sliding hiatal hernia, took a picture of this and then did a biopsy of the GE junction. We then pulled the scope back into the esophagus, looked fine and pulled the scope out. Switched scopes, changed gloves and went to the other side and started the colonoscopy and inserted the scope. Pushed all the way in to about [address] in, able to get all the way to the cecum, took a picture of appendiceal orifice and then slowly withdrew the scope insufflating to look circumferentially at the diaz looking at the cecum up the ascending colon to the hepatic flexure, then down the transverse colon, the splenic flexure into the descending colon and then into the rectum and the sigmoid and descending colon. There was some diverticula and took pictures. There was also saw some mild colitis, unsure whether this is from the resolving diverticulitis or from the scope, took a picture. Pulled down in the rectum, retroflexed and rectal vault, saw some very-very minimal internal hemorrhoids and then removed the scope. The patient tolerated the procedure and was recovered in endoscopy suite. Job ID: [id number] DocumentID: [id number] Dictated Date: 04/07/2018 11:48:13 Stamp Mounter Date: 04/07/2018 15:03:28 Dictated By: MISAEL SAMUELS DO
[2018-04-09] MEDS ORDERED: ACHD5005 PO (12:13)
== END 2018-04-07 12:21 | disposition home or self-care (01) ==
LOC: ENDO 09:13
PROVIDERS: ATTEND Surgery
DX: Z12.11 Encounter for screening for malignant neoplasm of colon (principal); K29.50 Unspecified chronic gastritis without bleeding; K21.0 Gastro-esophageal reflux disease with esophagitis; K44.9 Diaphragmatic hernia without obstruction or gangrene; K57.30 Diverticulosis of large intestine without perforation or abscess without bleeding; K64.8 Other hemorrhoids; K52.9 Noninfective gastroenteritis and colitis, unspecified; M79.7 Fibromyalgia; K31.89 Other diseases of stomach and duodenum; F17.210 Nicotine dependence, cigarettes, uncomplicated; Z87.19 Personal history of other diseases of the digestive system; Z79.899 Other long term (current) drug therapy

== ENCOUNTER 2018-04-08 05:35 | Outpatient (CLI) | payer MEDICAID ==
[~2018-04-08] VITALS: Ht 175.3 cm; Wt 87.1 kg
== END 2018-04-08 09:38 | disposition home or self-care (01) ==
LOC: PREOP 05:35
PROVIDERS: ATTEND Surgery
DX: Z01.818 Encounter for other preprocedural examination (principal)

== ENCOUNTER 2018-04-09 08:59 | Day surgery (SDC) | payer MEDICAID ==
[~2018-04-09] VITALS: Ht 175.3 cm; Wt 87.1 kg
[2018-04-09] MEDS ORDERED: LACTATED RINGERS 1,000 ML IV PRN (09:10)
[2018-04-09 09:15] VITALS: BP 127/86
[2018-04-09] MEDS ORDERED: ceFAZolin 2 GM IV Premixed 50 ML IV ONE (09:15)
[2018-04-09] MEDS ORDERED: LIDOCAINE PF 2% 5 ML (XYLOCAINE) VIAL ONE (09:21)
[2018-04-09] MEDS ORDERED: ONDANSETRON 4 MG/2 ML (SDV) Z0FRAN ONE (09:21)
[2018-04-09] MEDS ORDERED: ROCURONIUM 10 MG/ML 5 ML SYRINGE IV ONE (09:21)
[2018-04-09] MEDS ORDERED: proPOfol 200 MG/20 ML (DIPRIVAN) VIAL IV ONE (09:21)
[2018-04-09] MEDS ORDERED: MIDAZOLAM 2 MG/2 ML (VERSED) VIAL ONE (09:22)
[2018-04-09] MEDS ORDERED: fentaNYL INJECTION 100 MCG/2 ML AMP ONE (09:22)
[2018-04-09] MEDS ORDERED: ONDANSETRON 4 MG/2 ML (SDV) Z0FRAN IV ONE (09:30)
[2018-04-09] MEDS ORDERED: FAMOTIDINE 20MG/2ML IV (PEPCID) IV ONE (09:30)
[2018-04-09] MEDS ORDERED: CATHETER FLUSH 10 ML SYR IV PRN (09:30)
[2018-04-09] MEDS ORDERED: DEXAMETHASONE 10 MG/ML (DECADRON) 1 ML VIAL ONE (09:33)
[2018-04-09] MEDS ORDERED: SEVOFLURANE (ULTANE) 15 ML INHAL SOLN ONE ×8 (09:33→11:52)
[2018-04-09] MEDS ORDERED: LIDOCAINE/EPI 1%-1:100,000 (XYLOCAINE) 20ML ONE (10:31)
[2018-04-09] MEDS ORDERED: BUPIVACAINE 0.5% 30 ML (SENSORCAINE) VIAL ONE (10:31)
--- NOTE | 2018-04-09 10:47 | Progress Note-Pre Operative ---
Pre-Operative Progress Note H&P Reviewed The H&P was reviewed, patient examined and no changes noted. Time Seen by Provider: 10:42 Date H&P Reviewed: Apr 09, 2018 Time H&P Reviewed: 10:43 Pre-Operative Diagnosis: Incarcerated Umbilical Hernia MISAEL SAMUELS DO Apr 09, 2018 10:47
[2018-04-09] MEDS ORDERED: NEOSTIGMINE 1 MG/ML 5 ML SYRINGE ONE (12:00)
[2018-04-09] MEDS ORDERED: GLYCOPYRROLATE 0.2 MG/ML (ROBINUL) 2 ML VIAL ONE (12:00)
--- NOTE | 2018-04-09 12:11 | Progress Note-Post Operative ---
Post-Operative Progess Note Surgeon (s)/Orthopedic Coder (s) Surgeon MISAEL SAMUELS DO Orthopedic Coder: Debbie Pre-Operative Diagnosis Incarcerated Umbilical Hernia Post-Operative Diagnosis same Procedure & Operative Findings Date of Procedure 04/09/18 Procedure Performed/Findings Lap UH with mesh placement Anesthesia Type GET Estimated Blood Loss Estimated blood loss (mL): scant Specimens/Packing Specimens Removed umbilical hernia contents and sac MISAEL SAMUELS DO Apr 09, 2018 12:11
[2018-04-09] MEDS ORDERED: ACHD5005 PO (12:13)
--- NOTE | 2018-04-09 12:14 | Discharge Inst-Surgical ---
Discharge Inst-Surgical Depart Medication/Instructions New, Converted or Re-Newed RX: RX Given to Pt/Family Patient Instructions Follow up Appt: Make appointment for 1 week. [phone] Instructions: No lifting greater than 20 pounds. No strenuous activity. May shower in 24 hours, no tub bath or soaking. Use incentive spirometer at home as directed. No Smoking Skin/Wound Care: May remove bandages in am. You need to leave the Dermabond on incision it will fall off on it's own. Symptoms to Report: Appetite Changes, Extremity Discoloration, Numbness/Tingling, Swelling Increased , Bleeding Excessive, Eyesight Changes, Pain Increased, Urine Color Change, Constipation(Persistent), Fever over 101 degree F, Pain/Pressure in chest, Urinating Difficulty, Cough Up/Vomit Blood, Heart Beat Irreg/Pounding, Pain/ Pressure in jaw, Cramps in feet or legs, Lightheadedness, Pain/Pressure in shoulder, Diarrhea(Persistent), Memory Changes Suddenly, Questions/Concerns, Weight gain consecutive days, Dizziness/Fainting, Nausea/Vomiting, Shortness of Breath, Weight gain over 2 pounds If questions or concerns contact your physician Or seek help at emergency department. Activity Activity as Tolerated: Yes Activity Instructions: Avoid Stress to Incision Driving Instructions: No Driving/Refer to Dr. Isabel Discharge Diet: No Restrictions Diet After 24 Hours: Clear Liquid if Nauseous If Any Problems/Questions/Issu: Contact Your Physician, Go to Emergency Room, Go to [facility] Skin/Wound Care Infection Signs and Symptoms: Increased Redness, Foul Odor of Wound, Increased Drainage, Skin Itchy or Has a Rash, Increased Swelling, Temperature Above 101 F Wound Care Comment: Use heating pad to neck or shoulder tonight for pain Bathing Instructions: Shower Stitches/Hope/Dermabond Dis: Dermabond Ice Pack: Ice On and Off Site (as needed for pain) MISAEL SAMUELS DO Apr 09, 2018 12:14
[2018-04-09] MEDS ORDERED: HYDROmorphone 2 MG/ML VIAL (DILAUDID) ONE (12:28)
[2018-04-09] MEDS ORDERED: ONDANSETRON 4 MG/2 ML (SDV) Z0FRAN IVP PRN (12:30)
[2018-04-09] MEDS ORDERED: HYDROmorphone 2 MG/ML VIAL (DILAUDID) IV ONE (12:30)
[2018-04-09] MEDS ORDERED: MEPERIDINE (DEMEROL) INJ 50 MG/ML IVP ONE (12:30)
[2018-04-09 13:20] VITALS: BP 140/92
[2018-04-09 13:50] VITALS: BP 156/100
[2018-04-09] MEDS ORDERED: HYDROcodone/APAP 5 MG/325 MG (LORTAB) TAB PO ONE (14:00)
[2018-04-09 14:05] VITALS: BP 138/97
[2018-04-09 14:20] VITALS: BP 138/97
--- NOTE | 2018-04-09 14:26 | Anesthesia-General Post-Op ---
General Patient Condition Mental Status/LOC: Same as Preop Cardiovascular: Satisfactory Nausea/Vomiting: Absent Respiratory: Satisfactory Pain: Controlled Complications: Absent Post Op Complications Complications None Follow Up Care/Instructions Patient Instructions None needed. Anesthesia/Patient Condition Patient Condition Patient is doing well, no complaints, stable vital signs, no apparent adverse anesthesia problems. No complications reported per nursing. FABRICE DONALD CRNA Apr 09, 2018 14:26
--- NOTE | 2018-04-09 21:37 | OPERATIVE REPORT ---
DATE OF SERVICE: PREOPERATIVE DIAGNOSIS: Incarcerated umbilical hernia. POSTOPERATIVE DIAGNOSIS: Incarcerated umbilical hernia. PROCEDURE: Laparoscopic umbilical herniorrhaphy with mesh placement. SURGEON: Jesús Bynum DO. CONTROL ROOM SUPERVISOR: Manuel Lewis DO. ANESTHESIA: General endotracheal tube. SPECIMEN: Hernia contents and sac. BLOOD LOSS: Scant. FLUIDS: Per anesthesia. POSTOPERATIVE CONDITION: Stable. INDICATION FOR PROCEDURE: The patient is a 53-year-old male who has been having some abdominal pain, had a diverticulitis episode, had a colonoscopy, still having pain, diverticulitis has resolved and on CT noted to have incarcerated umbilical hernia, wanted to get this fixed thought that this might be due to the cause of his pain. FINDINGS: The patient did have incarcerated umbilical hernia, but did not really have any omentum. It was all preperitoneal fat that was stuck in there. We did discuss prior to the procedure that this may not take care all of his abdominal pain. PROCEDURE NOTE: After informed consent was obtained, the patient was brought to the operating room, placed on the table in supine position, sterilely prepped and draped in normal fashion. Local lidocaine was used to infiltrate the skin in left upper quadrant and made incision with #11 blade, carried down to skin into subcutaneous tissue, then deepened down to subcutaneous tissue with Bovie electrocautery down to fascia. Fascia incised with Bovie electrocautery, then bluntly spread the muscle apart, went to the posterior fascia, spread this with a Bovie electrocautery and then spread the muscle and then bluntly entered through the peritoneum. Placed an 11 mm trocar port under direct visualization. Created pneumoperitoneum and placed 2 more ports in normal fashion using local lidocaine, 11 blade for stab incision and the VersaStep system, all done under direct visualization, one in left lower quadrant, one in the right middle, just about even with the umbilicus. Upon entry, noted, lot of preperitoneal fat. Elected to start taking this down to LigaSure grasping the fat above the peritoneum and taken it down clamping, coagulating and transecting in this fashion taking all of this off just to visualize the incarcerated umbilical hernia while we were taking the soft, able to pull the fat out of the umbilical hernia and out of the fascia, then once this was off the abdominal wall, I took a picture of openings, looked at the sigmoid colon and looked fine and at this point, placed a 4-1/2 inch round Bard mesh in. I made a stab incision above the umbilicus and then grasped the mesh and pulled it up to the abdominal wall and then inflated the balloon still to hold it in place and then started using the secure strap to tack at 9, 12, 6 and 3 o'clock. Removed the balloon and then tacked in between. I had brought the pneumoperitoneum down to 10 mmHg and laid flat nicely cover the umbilical hernia, took a picture of this and at this point then removed all ports under direct visualization and allowed the pneumoperitoneum to escape. Closed the posterior fascia with 3-0 Vicryl ntuxxr-es-pmmku suture, then closed the anterior fascia with 0 Vicryl zatcne-ib-hvbme suture. Copiously irrigated the incision and closed the 2 small 5 mm incisions with single interrupted 4-0 undyed Monocryl subcuticular stitch then closed the left upper quadrant incision with 3 interrupted 4-0 undyed Monocryl subcuticular stitches. Area was cleaned and dried. Dermabond placed as well as bandage. The patient then transferred to recovery room in stable condition. Sponge, instrument and needle count correct at the end of the case. Job ID: [id number] DocumentID: [id number] Dictated Date: 04/09/2018 13:25:43 Hat Liner Date: 04/09/2018 21:36:21 Dictated By: JESÚS BYNUM DO
== END 2018-04-09 14:30 | disposition home or self-care (01) ==
LOC: SDC 08:59
PROVIDERS: ATTEND Surgery
DX: K42.0 Umbilical hernia with obstruction, without gangrene (principal); Z11.2 Encounter for screening for other bacterial diseases; K29.70 Gastritis, unspecified, without bleeding; K57.30 Diverticulosis of large intestine without perforation or abscess without bleeding; M79.7 Fibromyalgia; F17.210 Nicotine dependence, cigarettes, uncomplicated; G62.9 Polyneuropathy, unspecified; Z79.899 Other long term (current) drug therapy; Z87.19 Personal history of other diseases of the digestive system
CPT/HCPCS: 87081

== ENCOUNTER → 2018-08-19 | Outpatient (CLI) | payer MEDICAID ==
[~2018-08-19] MED LIST changes: +HYDR-4226 PO
--- NOTE | 2018-08-19 15:31 | Diagnostic Imaging Report ---
INDICATION: Acute right ankle pain. AP, oblique, and lateral views of the right ankle are obtained. There is no acute fracture or acute bony abnormality. There is mild joint space narrowing of the ankle joint. There is an accessory ossicle posterior to the talus. There are some chronic calcifications at the Achilles insertion. Accessory ossicles are seen adjacent to the cuboid. IMPRESSION: Chronic findings as described above with no acute-appearing bony abnormality. Dictated by: Dictated on workstation # [id number]
== END ==
LOC: RAD FS 14:56
PROVIDERS: ATTEND Nurse Practitioner Family
DX: M65.871 Other synovitis and tenosynovitis, right ankle and foot (principal); M25.871 Other specified joint disorders, right ankle and foot
CPT/HCPCS: 73610

== ENCOUNTER 2018-08-20 14:07 | Emergency (ER) | payer MEDICAID ==
[~2018-08-20] VITALS: Ht 175.3 cm; Wt 87.1 kg
[~2018-08-20 14:07] MED LIST changes: -HYDR-4226 PO
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
[2018-08-20] MEDS ORDERED: fentaNYL INJECTION 100 MCG/2 ML AMP IVP ONE (14:30)
[2018-08-20 14:42] LABS: BASOPHILS % (AUTO) 0 % (0-10); EOSINOPHILS # (AUTO) 0.1 10^3/uL (0.0-0.3); EOSINOPHILS % (AUTO) 2 % (0-10); HEMATOCRIT 43 % (40-54); HEMOGLOBIN 14.7 G/DL (13.3-17.7); LYMPHOCYTES # (AUTO) 1.5 X 10^3 (1.0-4.0); LYMPHOCYTES % (AUTO) 31 % (12-44); MEAN CORPUSCULAR HEMOGLOBIN 34 PG (25-34); MEAN CORPUSCULAR HGB CONC 35 G/DL (32-36); MEAN CORPUSCULAR VOLUME 97 FL (80-99); MEAN PLATELET VOLUME 10.9 FL (7.4-10.4); MONOCYTES # (AUTO) 0.4 X 10^3 (0.0-1.0); MONOCYTES % (AUTO) 9 % (0-12); NEUTROPHILS # (AUTO) 2.8 X 10^3 (1.8-7.8); NEUTROPHILS % (AUTO) 59 % (42-75); PLATELET COUNT 150 10^3/uL (130-400); RED CELL DISTRIBUTION WIDTH 12.8 % (10.0-14.5); WHITE BLOOD COUNT 4.8 10^3/uL (4.3-11.0)
[2018-08-20 15:06] LABS: ALANINE AMINOTRANSFERASE 22 U/L (0-55); ALBUMIN 4.2 GM/DL (3.2-4.5); ALKALINE PHOSPHATASE 68 U/L (40-136); BILIRUBIN,TOTAL 0.5 MG/DL (0.1-1.0); BUN/CREATININE RATIO 15; CALCIUM 9.2 MG/DL (8.5-10.1); CARBON DIOXIDE 21 MMOL/L (21-32); CHLORIDE 109 MMOL/L (98-107); CREATININE SERUM 1.08 MG/DL (0.60-1.30); GFR ESTIMATED > 60; GLUCOSE 85 MG/DL (70-105); LIPASE 42 U/L (8-78); POTASSIUM 4.2 MMOL/L (3.6-5.0); SODIUM 142 MMOL/L (135-145); TOTAL PROTEIN 6.7 GM/DL (6.4-8.2)
[2018-08-20 15:13] LABS: BILIRUBIN,URINE NEGATIVE (NEGATIVE); CLARITY,URINE CLEAR; COLOR,URINE YELLOW; GLUCOSE, URINE (UA) NEGATIVE (NEGATIVE); KETONES,URINE NEGATIVE (NEGATIVE); LEUKOCYTE ESTERASE ,URINE 1+ (NEGATIVE); NITRITE,URINE NEGATIVE (NEGATIVE); PH,URINE 5 (5-9); PROTEIN,URINE 1+ (NEGATIVE); UROBILINOGEN,URINE NORMAL (NORMAL)
[2018-08-20 15:20] LABS: BACTERIA,URINE FEW /HPF
[2018-08-20] MEDS ORDERED: KETOROLAC 30 MG/ML VIAL IVP ONE (16:00)
[2018-08-20] MEDS ORDERED: HYDR-4226 PO (16:22)
--- NOTE | 2018-08-20 16:27 | Diagnostic Imaging Report ---
PROCEDURE: CT abdomen and pelvis without contrast. TECHNIQUE: Multiple contiguous axial images were obtained through the abdomen and pelvis without the use of intravenous contrast. Auto Exposure Controls were utilized during the CT exam to meet ALARA standards for radiation dose reduction. INDICATION: Lower abdominal pain Lung bases are clear. Liver is normal. Gallbladder is present. Pancreas is normal. Spleen is not enlarged. Kidneys and adrenals appear normal. Small bowel is not dilated. Appendix is normal. Colon appears normal. Prostate is normal. Urinary bladder is normal. There is no intraperitoneal free air or free fluid. Impression: Negative CT abdomen pelvis. Dictated by: Dictated on workstation # [id number]
[2018-08-20 16:53] VITALS: BP 103/70
== END 2018-08-20 16:54 | disposition home or self-care (01) ==
LOC: EDUNIT# 14:07 → ER 14:07
DX: R10.33 Periumbilical pain (principal); M79.7 Fibromyalgia; G62.9 Polyneuropathy, unspecified; Z88.8 Allergy status to other drugs, medicaments and biological substances; Z88.5 Allergy status to narcotic agent; Z87.19 Personal history of other diseases of the digestive system; Z98.890 Other specified postprocedural states; X50.1XXA Overexertion from prolonged static or awkward postures, initial encounter; Y92.59 Other trade areas as the place of occurrence of the external cause; Y99.0 Civilian activity done for income or pay
CPT/HCPCS: 36415; 74176; 80053; 81000; 83690; 85025

== ENCOUNTER → 2018-09-09 | Outpatient (CLI) | payer MEDICAID ==
[~2018-09-09] MED LIST changes: +HYDR-4226 PO
--- NOTE | 2018-09-09 12:36 | Diagnostic Imaging Report ---
Gastric emptying study INDICATION: Nausea, abdominal fullness There are no prior studies available for comparison. This exam is performed following administration of 1 mCi of 99 technetium sulfur colloid in egg. Normally, 50 percent of the radiotracer clears the stomach by 60 minutes plus or minus 60 minutes. On this exam at 60 minutes 90% of the radiotracer had cleared from the stomach. This would indicate that there is no delay in gastric emptying. At 2 hours 96% of the radiotracer had cleared the stomach. By 3 hours 99% had cleared and at 4 hours there was still evidence of clearing of 99%. IMPRESSION: There is no evidence of delay in gastric emptying. Dictated by: Dictated on workstation # [id number]
== END ==
LOC: CARD 07:12
PROVIDERS: ATTEND Surgery
DX: R11.0 Nausea (principal); R14.0 Abdominal distension (gaseous)
CPT/HCPCS: 78264

== ENCOUNTER → 2019-04-09 | Outpatient (CLI) | payer MEDICAID ==
[~2019-04-09] MED LIST changes: +CYAN-41 PO; -CYAN10006 PO
--- NOTE | 2019-04-10 10:04 | Diagnostic Imaging Report ---
EXAMINATION: Lumbar spine at 3:02 AM INDICATION: Chronic back pain AP, lateral and spot lateral views were obtained. There are no prior studies available for comparison. The lateral view shows the vertebral body heights and alignment to be generally within normal limits. The intervertebral disc spaces are fairly well-maintained. There is no fracture or acute bony abnormality evident. There is no sign of a paraspinal mass. There is mild symmetrical sclerosis of the sacroiliac joints. IMPRESSION: 1. There is no evidence for an acute bony abnormality. 2. If there is clinical concern regarding spinal stenosis or nerve root encroachment, then MRI would be recommended for further evaluation. Dictated by: Dictated on workstation # [id number]
--- NOTE | 2019-04-10 10:06 | Diagnostic Imaging Report ---
EXAMINATION: Thoracic spine at 3:03 AM INDICATION: Back pain AP, lateral and swimmer's views were obtained. There are no prior thoracic spine examinations available for comparison. The lateral view does show slight anterior wedging of two of the lower thoracic vertebra, probably T8 and T9. I suspect that these mild compression deformities are long-standing in nature. The other vertebral body heights are within normal limits. The intervertebral disc spaces are fairly well-maintained. There is no fracture or acute bony abnormality appreciated. There is no sign of a paraspinal mass. IMPRESSION: 1. There is no evidence for an acute bony abnormality. 2. There are mild anterior wedge compression deformities of two of the lower thoracic vertebra, probably T8 and T9. 3. If clinical concern regarding an underlying abnormality persists, then MRI would be recommended for further study. Dictated by: Dictated on workstation # [id number]
--- NOTE | 2019-04-10 10:06 | Diagnostic Imaging Report ---
EXAMINATION: Cervical spine at 2:50 a.m. INDICATION: Neck pain. AP, lateral and odontoid views were obtained. COMPARISON: There are no prior studies available for comparison. FINDINGS: This exam is less than optimal as the C7-T1 level is not visualized on the lateral view. This level seems normal on the AP view. The lateral view does show straightening of the cervical spine. This may be secondary to muscle spasm and/or positioning. There is narrowing of the disc space at C6-C7. There is also mild sclerosis of the opposing endplates of C6 and C7. There is slight narrowing of the disc space at C5-C6. The other intervertebral spaces are well maintained. There is no fracture or acute bony abnormality evident. There is no sign of retropharyngeal edema. The lung apices are clear. IMPRESSION: 1. There is no evidence for an acute bony abnormality. 2. There is degenerative disc and bony disease at C6-C7 and to a lesser degree at C5-C6. 3. If there is clinical concern regarding spinal stenosis or nerve root encroachment, then MRI would be recommended for further study. Dictated by: Dictated on workstation # [id number]
== END ==
LOC: RAD FS 14:34
PROVIDERS: ATTEND Nurse Practitioner Family
DX: M54.41 Lumbago with sciatica, right side (principal); M54.42 Lumbago with sciatica, left side; M43.8X4 Other specified deforming dorsopathies, thoracic region; M50.323 Other cervical disc degeneration at C6-C7 level
CPT/HCPCS: 72040; 72072; 72100

== ENCOUNTER 2019-09-12 21:56 | Observation (INO) | payer BC, MEDICARE ==
[~2019-09-12] VITALS: Ht 167.8 cm; Wt 93.1 kg
--- OUTSIDE RECORDS SUMMARY | 2019-09-12 22:04 | XMS REPORT | Continuity of Care Document ---
Author Organization Unknown Address Unknown Phone Unavailable Allergies Active Description Code Type Severity Reaction Onset Reported/Identified Relationship to Patient Clinical Status Yes citalopram [id number] Drug Allerg y Unknown N/A 04/01/2018 Yes morphine [id number] Drug Allergy Unknown RASH 04/07/2018 Medications There is no data. Problems Date Dx Coded Attending Type Code Diagnosis Diagnosed By 07/31/2017 CHRIS GODFREY, DONALDO Valencia5 SYNCOPE AND COLLAPSE 07/31/2017 CHRIS GODFREY, DONALDO Torres SYNCOPE AND COLLAPSE 08/05/2017 CHRIS GODFREY, DONALDO Valencia5 SYNCOPE AND COLLAPSE 09/09/2017 CHRIS GODFREY, DONALDO Torres SYNCOPE AND COLLAPSE 10/11/2017 CHRIS GODFREY, DONALDO Torres SYNCOPE AND COLLAPSE 10/24/2017 CHRIS GODFREY, DOANLDO Valencia5 SYNCOPE AND COLLAPSE 01/30/2018 CHRIS GODFREY, DONALDO Torres SYNCOPE AND COLLAPSE 04/02/2018 MISAEL SAMUELS DO Ot K42.0 UMBILICAL HERNIA WITH OBSTRUCTION, WITHO 04/02/2018 MISAEL SAMUELS DO Ot K57.9 2 DVTRCLI OF INTEST, PART UNSP, W/O PERF O 04/02/2018 MISAEL SAMUELS DO Ot R10.1 2 LEFT UPPER QUADRANT PAIN 04/02/2018 MISAEL SAMUELS DO Ot R10.1 3 EPIGASTRIC PAIN 04/02/2018 CHRIS GODFREY, DONALDO Brasher Ot R55 SYNCOPE AND COLLAPSE 04/02/2018 CHRIS GODFREY, DONALDO Brasher Ot G40.A09 ABSENCE EPILEPTIC SYNDROME, NOT INTRACTA 04/02/2018 CHRIS GODFREY, DONALDO Brasher Ot R55 SYNCOPE AND COLLAPSE 04/02/2018 MISAEL SAMUELS DO Ot K57.9 2 DVTRCLI OF INTEST, PART UNSP, W/O PERF O 04/02/2018 MISAEL SAMUELS DO Ot K57.9 2 DVTRCLI OF INTEST, PART UNSP, W/O PERF O 04/02/2018 MISAEL SAMUELS DO Ot K57.9 2 DVTRCLI OF INTEST, PART UNSP, W/O PERF O 04/04/2018 DONALDO PEREZ MD Ot R55 SYNCOPE AND COLLAPSE 04/04/2018 DONALDO PEREZ MD Ot G40.A09 ABSENCE EPILEPTIC SYNDROME, NOT INTRACTA 04/04/2018 DONALDO PEREZ MD Ot R55 SYNCOPE AND COLLAPSE 04/07/2018 MISAEL SAMUELS DO Ot F17.2 10 NICOTINE DEPENDENCE, CIGARETTES, UNCOMPL 04/07/2018 MISAEL SAMUELS DO Ot K21.0 GASTRO-ESOPHAGEAL REFLUX DISEASE WITH ES 04/07/2018 MISAEL SAMUELS DO Ot K29.5 0 UNSPECIFIED CHRONIC GASTRITIS WITHOUT BL 04/07/2018 MISAEL SAMUELS DO Ot K31.8 9 OTHER DISEASES OF STOMACH AND DUODENUM 04/07/2018 MISAEL SAMUELS DO Ot K44.9 DIAPHRAGMATIC HERNIA WITHOUT OBSTRUCTION 04/07/2018 MISAEL SAMUELS DO Ot K52.9 NONINFECTIVE GASTROENTERITIS AND COLITIS 04/07/2018 MISAEL SAMUELS DO Ot K57.3 0 DVRTCLOS OF LG INT W/O PERFORATION OR AB 04/07/2018 MISAEL SAMUELS DO Ot K64.8 OTHER HEMORRHOIDS 04/07/2018 MISAEL SAMUELS DO Ot M79.7 FIBROMYALGIA 04/07/2018 MISAEL SAMUELS DO Ot Z12.1 1 ENCOUNTER FOR SCREENING FOR MALIGNANT NE 04/07/2018 MISAEL SAMUELS DO Ot 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 04/07/2018 MISAEL SAMUELS DO Ot Z87.1 9 PERSONAL HISTORY OF OTHER DISEASES OF TH 04/08/2018 MISAEL SAMUELS DO Ot Z01.8 18 ENCOUNTER FOR OTHER PREPROCEDURAL EXAMIN 04/08/2018 MISAEL SAMUELS DO Ot F17.2 10 NICOTINE DEPENDENCE, CIGARETTES, UNCOMPL 04/08/2018 MISAEL SAMUELS DO Ot K21.0 GASTRO-ESOPHAGEAL REFLUX DISEASE WITH ES 04/08/2018 MISAEL SAMUELS DO B Ot K29.5 0 UNSPECIFIED CHRONIC GASTRITIS WITHOUT BL 04/08/2018 MISAEL SAMUELS DO Ot K31.8 9 OTHER DISEASES OF STOMACH AND DUODENUM 04/08/2018 ARVIND MARTINEZ MISAEL B Ot K44.9 DIAPHRAGMATIC HERNIA WITHOUT OBSTRUCTION 04/08/2018 TRISH SAMUELS DOIC B Ot K52.9 NONINFECTIVE GASTROENTERITIS AND COLITIS 04/08/2018 ARVIND MARTINEZ MISAEL B Ot K57.3 0 DVRTCLOS OF LG INT W/O PERFORATION OR AB 04/08/2018 ARVIND MARTINEZ MISAEL B Ot K64.8 OTHER HEMORRHOIDS 04/08/2018 ARVIND MARTINEZ MISAEL B Ot M79.7 FIBROMYALGIA 04/08/2018 ARVIND MARTINEZ MISAEL B Ot Z12.1 1 ENCOUNTER FOR SCREENING FOR MALIGNANT NE 04/08/2018 TRISH SAMUELS DOIC B Ot 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 04/08/2018 TRISH SAMUELS DOIC B Ot Z87.1 9 PERSONAL HISTORY OF OTHER DISEASES OF 04/09/2018 ARVIND MARTINEZ MISAEL B Ot Z01.8 18 ENCOUNTER FOR OTHER PREPROCEDURAL EXAMIN 04/09/2018 TRISH SAMUELS DOIC B Ot Z01.8 18 ENCOUNTER FOR OTHER PREPROCEDURAL EXAMIN 04/09/2018 ARVIND MARTINEZ MISAEL B Ot F17.2 10 NICOTINE DEPENDENCE, CIGARETTES, UNCOMPL 04/09/2018 ARVIND MARTINEZ MISAEL B Ot G62.9 POLYNEUROPATHY, UNSPECIFIED 04/09/2018 ARVIND MARTINEZ MISAEL B Ot K29.7 0 GASTRITIS, UNSPECIFIED, WITHOUT BLEEDING 04/09/2018 ARVIND MARTINEZ MISAEL B Ot K42.0 UMBILICAL HERNIA WITH OBSTRUCTION, WITHO 04/09/2018 TRISH SAMUELS DOIC B Ot K57.3 0 DVRTCLOS OF LG INT W/O PERFORATION OR AB 04/09/2018 TRISH SAMUELS DOIC B Ot M79.7 FIBROMYALGIA 04/09/2018 ARVIND MARTINEZ MISAEL B Ot Z11.2 ENCOUNTER FOR SCREENING FOR OTHER BACTER 04/09/2018 ARVIND MARTINEZ MISAEL B Ot Z79.8 99 OTHER INTERMEDIATE (CURRENT) DRUG THERAPY 04/09/2018 ARVIND MARTINEZ MISAEL B Ot Z87.1 9 PERSONAL HISTORY OF OTHER DISEASES OF TH 04/10/2018 TRISH SAMUELS DOIC B Ot F17.2 10 NICOTINE DEPENDENCE, CIGARETTES, UNCOMPL 04/10/2018 DELMAN DO, MISAEL B Ot G62.9 POLYNEUROPATHY, UNSPECIFIED 04/10/2018 DELMAN DO, MISAEL B Ot K29.7 0 GASTRITIS, UNSPECIFIED, WITHOUT BLEEDING 04/10/2018 DELMAN DO, MISAEL B Ot K42.0 UMBILICAL HERNIA WITH OBSTRUCTION, WITHO 04/10/2018 DELMAN DO, MISAEL B Ot K57.3 0 DVRTCLOS OF LG INT W/O PERFORATION OR AB 04/10/2018 DELMAN DO, MISAEL B Ot M79.7 FIBROMYALGIA 04/10/2018 DELMAN DO, MISAEL B Ot Z11.2 ENCOUNTER FOR SCREENING FOR OTHER BACTER 04/10/2018 DELMAN DO, MISAEL B Ot Z79.8 99 OTHER INTERMEDIATE (CURRENT) DRUG THERAPY 04/10/2018 DELMAN DO, MISAEL B Ot Z87.1 9 PERSONAL HISTORY OF OTHER DISEASES OF TH 04/12/2018 DELMAN DO, MISAEL B Ot F17.2 10 NICOTINE DEPENDENCE, CIGARETTES, UNCOMPL 04/12/2018 DELMAN DO, MISAEL B Ot G62.9 POLYNEUROPATHY, UNSPECIFIED 04/12/2018 DELMAN DO, MISAEL B Ot K29.7 0 GASTRITIS, UNSPECIFIED, WITHOUT BLEEDING 04/12/2018 DELMAN DO, MISAEL B Ot K42.0 UMBILICAL HERNIA WITH OBSTRUCTION, WITHO 04/12/2018 DELMAN DO, MISAEL B Ot K57.3 0 DVRTCLOS OF LG INT W/O PERFORATION OR AB 04/12/2018 DELMAN DO, MISAEL B Ot M79.7 FIBROMYALGIA 04/12/2018 DELMAN DO, MISAEL B Ot Z11.2 ENCOUNTER FOR SCREENING FOR OTHER BACTER 04/12/2018 DELMAN DO, MISAEL B Ot 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 04/12/2018 DELMAN DO, MISAEL B Ot Z87.1 9 PERSONAL HISTORY OF OTHER DISEASES OF TH 04/13/2018 DELMAN DO, MISAEL B Ot F17.2 10 NICOTINE DEPENDENCE, CIGARETTES, UNCOMPL 04/13/2018 DELMAN DO, MISAEL B Ot K21.0 GASTRO-ESOPHAGEAL REFLUX DISEASE WITH ES 04/13/2018 DELMAN DO, MISAEL B Ot K29.5 0 UNSPECIFIED CHRONIC GASTRITIS WITHOUT BL 04/13/2018 DELMAN DO, MISAEL B Ot K31.8 9 OTHER DISEASES OF STOMACH AND DUODENUM 04/13/2018 ARVIND MARTINEZ MISAEL B Ot K44.9 DIAPHRAGMATIC HERNIA WITHOUT OBSTRUCTION 04/13/2018 TRISH SAMUELS DOIC B Ot K52.9 NONINFECTIVE GASTROENTERITIS AND COLITIS 04/13/2018 ARVIND MARTINEZ MISAEL B Ot K57.3 0 DVRTCLOS OF LG INT W/O PERFORATION OR AB 04/13/2018 ARVIND MARTINEZ MISAEL B Ot K64.8 OTHER HEMORRHOIDS 04/13/2018 ARVIND MARTINEZ MISAEL B Ot M79.7 FIBROMYALGIA 04/13/2018 ARVIND MARTINEZ MISAEL B Ot Z12.1 1 ENCOUNTER FOR SCREENING FOR MALIGNANT NE 04/13/2018 ARVIND MARTINEZ MISAEL B Ot 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 04/13/2018 ARVIND MARTINEZ MISAEL B Ot Z87.1 9 PERSONAL HISTORY OF OTHER DISEASES OF 04/14/2018 ARVIND MARTINEZ MISAEL B Ot F17.2 10 NICOTINE DEPENDENCE, CIGARETTES, UNCOMPL 04/14/2018 ARVIND MARTINEZ MISAEL B Ot K21.0 GASTRO-ESOPHAGEAL REFLUX DISEASE WITH ES 04/14/2018 ARVIND MARTINEZ MISAEL B Ot K29.5 0 UNSPECIFIED CHRONIC GASTRITIS WITHOUT BL 04/14/2018 ARVIND MARTINEZ MISAEL B Ot K31.8 9 OTHER DISEASES OF STOMACH AND DUODENUM 04/14/2018 TRISH SAMUELS DOIC B Ot K44.9 DIAPHRAGMATIC HERNIA WITHOUT OBSTRUCTION 04/14/2018 ARVIND MARTINEZ MISAEL B Ot K52.9 NONINFECTIVE GASTROENTERITIS AND COLITIS 04/14/2018 ARVIND MARTINEZ MISAEL B Ot K57.3 0 DVRTCLOS OF LG INT W/O PERFORATION OR AB 04/14/2018 ARVIND MARTINEZ MISAEL B Ot K64.8 OTHER HEMORRHOIDS 04/14/2018 ARVIND MARTINEZ MISAEL B Ot M79.7 FIBROMYALGIA 04/14/2018 ARVIND MARTINEZ MISAEL B Ot Z12.1 1 ENCOUNTER FOR SCREENING FOR MALIGNANT NE 04/14/2018 ARVIND MARTINEZ MISAEL B Ot Z79.8 99 OTHER INTERMEDIATE (CURRENT) DRUG THERAPY 04/14/2018 ARVIND MARTINEZ, MISAEL B Ot Z87.1 9 PERSONAL HISTORY OF OTHER DISEASES OF TH 04/15/2018 ARVIND MARTINEZ MISAEL B Ot F17.2 10 NICOTINE DEPENDENCE, CIGARETTES, UNCOMPL 04/15/2018 TRISH SAMUELS DOIC B Ot K21.0 GASTRO-ESOPHAGEAL REFLUX DISEASE WITH ES 04/15/2018 TRISH SAMUELS DOIC B Ot K29.5 0 UNSPECIFIED CHRONIC GASTRITIS WITHOUT BL 04/15/2018 TRISH SAMUELS DOIC B Ot K31.8 9 OTHER DISEASES OF STOMACH AND DUODENUM 04/15/2018 TRISH SAMUELS DOIC B Ot K44.9 DIAPHRAGMATIC HERNIA WITHOUT OBSTRUCTION 04/15/2018 TRISH SAMUELS DOIC B Ot K52.9 NONINFECTIVE GASTROENTERITIS AND COLITIS 04/15/2018 TRISH SAMUELS DOIC B Ot K57.3 0 DVRTCLOS OF LG INT W/O PERFORATION OR AB 04/15/2018 MISAEL SAMUELS DO B Ot K64.8 OTHER HEMORRHOIDS 04/15/2018 MISAEL SAMUELS DO Ot M79.7 FIBROMYALGIA 04/15/2018 MISAEL SAMUELS DO B Ot Z12.1 1 ENCOUNTER FOR SCREENING FOR MALIGNANT NE 04/15/2018 MISAEL SAUMELS DO Ot Z79.8 99 OTHER INTERMEDIATE (CURRENT) DRUG THERAPY 04/15/2018 TRISH SAMUELS DOIC B Ot Z87.1 9 PERSONAL HISTORY OF OTHER DISEASES OF TH 04/17/2018 MISAEL SAMUELS DO B Ot F17.2 10 NICOTINE DEPENDENCE, CIGARETTES, UNCOMPL 04/17/2018 MISAEL SAMUELS DO B Ot K21.0 GASTRO-ESOPHAGEAL REFLUX DISEASE WITH ES 04/17/2018 TRISH SAMUELS DOIC B Ot K29.5 0 UNSPECIFIED CHRONIC GASTRITIS WITHOUT BL 04/17/2018 MISAEL SAMUELS DO B Ot K31.8 9 OTHER DISEASES OF STOMACH AND DUODENUM 04/17/2018 TRISH SAMUELS DOIC B Ot K44.9 DIAPHRAGMATIC HERNIA WITHOUT OBSTRUCTION 04/17/2018 TRISH SAMUELS DOIC B Ot K52.9 NONINFECTIVE GASTROENTERITIS AND COLITIS 04/17/2018 MISAEL SAMUELS DO B Ot K57.3 0 DVRTCLOS OF LG INT W/O PERFORATION OR AB 04/17/2018 TRISH SAMUELS DOIC B Ot K64.8 OTHER HEMORRHOIDS 04/17/2018 TRISH SAMUELS DOIC B Ot M79.7 FIBROMYALGIA 04/17/2018 MISAEL SAMUELS DO B Ot Z12.1 1 ENCOUNTER FOR SCREENING FOR MALIGNANT NE 04/17/2018 MISAEL SAMUELS DO B Ot Z79.8 99 OTHER INTERMEDIATE (CURRENT) DRUG THERAPY 04/17/2018 TRISH SAMUELS DOIC B Ot Z87.1 9 PERSONAL HISTORY OF OTHER DISEASES OF TH 04/17/2018 MISAEL SAMUELS DO B Ot F17.2 10 NICOTINE DEPENDENCE, CIGARETTES, UNCOMPL 04/17/2018 TRISH SAMUELS DOIC B Ot K21.0 GASTRO-ESOPHAGEAL REFLUX DISEASE WITH ES 04/17/2018 TRISH SAMUELS DOIC B Ot K29.5 0 UNSPECIFIED CHRONIC GASTRITIS WITHOUT BL 04/17/2018 TRISH SAMUELS DOIC B Ot K31.8 9 OTHER DISEASES OF STOMACH AND DUODENUM 04/17/2018 ARVIND MARTINEZ MISAEL B Ot K44.9 DIAPHRAGMATIC HERNIA WITHOUT OBSTRUCTION 04/17/2018 ARVIND MARTINEZ MISAEL B Ot K52.9 NONINFECTIVE GASTROENTERITIS AND COLITIS 04/17/2018 TRISH SAMUELS DOIC B Ot K57.3 0 DVRTCLOS OF LG INT W/O PERFORATION OR AB 04/17/2018 ARVIND MARTINEZ MISAEL B Ot K64.8 OTHER HEMORRHOIDS 04/17/2018 ARVIND MARTINEZ MISAEL B Ot M79.7 FIBROMYALGIA 04/17/2018 TRISH SAMUELS DOIC B Ot Z12.1 1 ENCOUNTER FOR SCREENING FOR MALIGNANT NE 04/17/2018 MISAEL SAMUELS DO B Ot Z79.8 99 OTHER INTERMEDIATE (CURRENT) DRUG THERAPY 04/17/2018 TRISH SAMUELS DOIC B Ot Z87.1 9 PERSONAL HISTORY OF OTHER DISEASES OF TH 08/20/2018 CELESTINO LEDESMA SLABBER LIGHT Ot M25.871 OTHER SPECIFIED JOINT DISORDERS, RIGHT A 08/20/2018 CELESTION LEDESMA SLABBER LIGHT Ot M65.871 OTHER SYNOVITIS AND TENOSYNOVITIS, RIGHT 08/20/2018 RENETTA NOGUEIRA APRN Ot G62 .9 POLYNEUROPATHY, UNSPECIFIED 08/20/2018 RENETTA NOGUEIRA APRN Ot M79 .7 FIBROMYALGIA 08/20/2018 RENETTA NOGUEIRA APRN Ot R10.33 PERIUMBILICAL PAIN 08/20/2018 RENETTA NOGUEIRA APRN Ot X50.1XXA OVEREXERTION FROM PROLONGED STATIC OR AW 08/20/2018 RENETTA NOGUEIRA APRN Ot Y92.[address] 08/20/2018 RENETTA NOGUEIRA APRN Ot Y99 .0 CIVILIAN ACTIVITY DONE FOR INCOME OR PAY 08/20/2018 RENETTA NOGUEIRA APRN Ot Z87.19 PERSONAL HISTORY OF OTHER DISEASES OF 08/20/2018 RENETTA NOGUEIRA APRN Ot Z88 .5 ALLERGY STATUS TO NARCOTIC AGENT STATUS 08/20/2018 RENETTA NOGUEIRA APRN Ot Z88 .8 ALLERGY STATUS TO OTH DRUG/MEDS/BIOL SUB 08/20/2018 RENETTA NOGUEIRA APRN Ot Z98.890 OTHER SPECIFIED POSTPROCEDURAL STATES 08/25/2018 RENETTA NOGUEIRA APRN Ot G62 .9 POLYNEUROPATHY, UNSPECIFIED 08/25/2018 RENETTA NOGUEIRA APRN Ot M79 .7 FIBROMYALGIA 08/25/2018 RENETTA NOGUEIRA APRN Ot R10.33 PERIUMBILICAL PAIN 08/25/2018 RENETTA NOGUEIRA APRN Ot X50.1XXA OVEREXERTION FROM PROLONGED STATIC OR AW 08/25/2018 RENETTA NOGUEIRA APRN Ot Y92.[address] [facility] [address] 08/25/2018 RENETTA NOGUEIRA APRN Ot Y99 .0 CIVILIAN ACTIVITY DONE FOR INCOME OR PAY 08/25/2018 RENETTA NOGUEIRA APRN Ot Z87.19 PERSONAL HISTORY OF OTHER DISEASES OF 08/25/2018 RENETTA NOGUEIRA APRN Ot Z88 .5 ALLERGY STATUS TO NARCOTIC AGENT STATUS 08/25/2018 RENETTA NOGUEIRA APRN Ot Z88 .8 ALLERGY STATUS TO OTH DRUG/MEDS/BIOL SUB 08/25/2018 RENETTA NOGUEIRA APRN Ot Z98.890 OTHER SPECIFIED POSTPROCEDURAL STATES 09/04/2018 CELESTINO LEDESMA SLABBER LIGHT Ot M25.871 OTHER SPECIFIED JOINT DISORDERS, RIGHT A 09/04/2018 CELESTINO LEDESMA SLABBER LIGHT Ot M65.871 OTHER SYNOVITIS AND TENOSYNOVITIS, RIGHT 04/29/2019 CELESTINO LEDESMA SLABBER LIGHT Ot M43.8X4 OTHER SPECIFIED DEFORMING DORSOPATHIES, 04/29/2019 CELESTINO LEDESMA SLABBER LIGHT Ot 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 Results Test Result Range LIPID PANEL - 07/26/17 10:32 CHOLESTEROL, TOTAL 176 mg/dL <200 HDL CHOLESTEROL 58 mg/dL >40 TRIGLYCERIDES 75 mg/dL <150 LDL-CHOLESTEROL 102 mg/dL (calc) NRG CHOL/HDLC RATIO 3.0 (calc) <5.0 NON HDL CHOLESTEROL 118 mg/dL (calc) <13 0 CRP - 09/26/17 10:08 C-REACTIVE PROTEIN 1.8 mg/L <8.0 VIT B-12 - 12/24/17 15:50 Vitamin B12 454.00 pg/mL 213.00-816.00 Protein Electro, Serum - 12/24/17 15:50 PROTEIN, TOTAL, SERUM 6.8 G/DL 6.0-8.5 ALBUMIN 3.9 G/DL 2.9-4.4 WOCNE-3-GFNNTBFS 0.3 G/DL 0.0-0.4 YPQMX-1-BWSEBMBX 0.6 G/DL 0.4-1.0 BETA GLOBULIN 1.0 G/DL 0.7-1.3 GAMMA GLOBULIN 1.0 G/DL 0.4-1.8 M-SPIKE NOT OBSERVED G/DL NOT OBSERVED GLOBULIN, TOTAL 2.9 G/DL 2.2-3.9 A/G RATIO 1.3 0.7-1.7 PLEASE NOTE: PROTEIN ELECTROPHORESIS SCAN WILL FOLLOW VIA COMPUTER, MAIL, OR.brCOURIER DELIVERY. PDF . Protein Electro.,S - 12/24/17 15:50 Protein, Total, Serum 6.8 g/dL 6.0-8.5 Albumin 3.9 g/dL 2.9-4.4 Lttti-4-Aieskmoh 0.3 g/dL 0.0-0.4 Mjyne-5-Ggnoaoki 0.6 g/dL 0.4-1.0 Beta Globulin 1.0 g/dL 0.7-1.3 Gamma Globulin 1.0 g/dL 0.4-1.8 M-Mehran Not Observed g/dL Not Observed Globulin, Total 2.9 g/dL 2.2-3.9 A/G Ratio 1.3 0.7-1.7 Please note: Comment PDF . Protein Electro, 24-Hour Urine - 8 11:12 PROTEIN,TOTAL,URINE 4.4 MG/DL NOT ESTAB. PLEASE NOTE: PROTEIN ELECTROPHORESIS SCAN WILL FOLLOW VIA COMPUTER, MAIL, OR.brCOURIER DELIVERY. PROT,24HR CALCULATED 55 MG/24 HR 30-150 ALBUMIN, U 31.5 % NOT ESTAB. GWOOM-4-MILOWLEE, U 14.0 % NOT ESTAB. OUGDR-6-VIILMYFN, U 19.4 % NOT ESTAB. BETA GLOBULIN, U 7.4 % NOT ESTAB. GAMMA GLOBULIN, U 27.7 % NOT ESTAB. M-SPIKE, % NOT OBSERVED % NOT OBSERVED PDF . Heavy Metals Profile II, Urine - 8 11:12 ARSENIC (TOTAL),U NONE DETECTED UG/L 0-5 0 ARSENIC(INORGANIC),U NONE DETECTED UG/L 0-19 CREATININE(DATA TECHNICIAN),U 0.64 G/L 0.30-3.00 LEAD, URINE NONE DETECTED UG/L 0-49 MERCURY, URINE NONE DETECTED UG/L 0-19 CADMIUM, URINE NONE DETECTED UG/L NONE D ETECTED Protein Electro, 24-Hour Urine - 8 11:12 Protein,Total,Urine 4.4 mg/dL Not Estab. Prot,24hr calculated 55 mg/24 hr 30-150 Albumin, U 31.5 % NOT ESTAB. Vvtop-8-Gkalwels, U 14.0 % NOT ESTAB. Qxqks-1-Gmdifimf, U 19.4 % NOT ESTAB. Beta Globulin, U 7.4 % NOT ESTAB. Gamma Globulin, U 27.7 % NOT ESTAB. M-Mehran, % Not Observed % Not Observed Please note: Comment PDF . Heavy Metals Profile II, Urine - 8 11:12 Creatinine(Client Insights Consultant),U 0.64 g/L 0.30-3.00 Arsenic (Total),U None Detected ug/L 0-5 0 Arsenic(Inorganic),U None Detected ug/L 0-19 Lead, Urine None Detected ug/L 0-49 Mercury, Urine None Detected ug/L 0-19 Cadmium, Urine None Detected ug/L None d etected Automated blood complete blood count (he mogram) panel - 04/01/18 16:10 Blood leukocytes automated count (number/volume) 4.3 10*3/uL 4.3-11.0 Blood erythrocytes automated count (number/volume) 4.34 10*6/uL 4.35-5.85 Venous blood hemoglobin measurement (mass/volume) 14.2 g/dL 13.3-17.7 Blood hematocrit (volume fraction) 42 % 40-54 Automated erythrocyte mean corpuscular volume 98 [ foz_us] 80-99 Automated erythrocyte mean corpuscular h emoglobin (mass per erythrocyte) 33 pg 25-34 Automated erythrocyte mean corpuscular h emoglobin concentration measurement (mass/volume) 34 g/dL 32-36 Automated erythrocyte distribution width ratio 12. 9 % 10.0- 14.5 Automated blood platelet count (count/volume) 93 1 0*3/uL 130-400 Automated blood platelet mean volume measurement 11.6 [foz_us] 7.4-10.4 Comprehensive metabolic panel - 04/01/18 16:10 Serum or plasma sodium measurement (moles/volume) 140 mmol/L 135-145 Serum or plasma potassium measurement (moles/volume) 3.8 mmol/L 3.6-5.0 Serum or plasma chloride measurement (moles/volume) 107 mmol/L 98-107 Carbon dioxide 25 mmol/L 21-32 Serum or plasma anion gap determination (moles/volume) 8 mmol/L 5-14 Serum or plasma urea nitrogen measurement (mass/volume ) 12 mg/dL 7-18 Serum or plasma creatinine measurement (mass/volume) 1.15 mg/dL 0.60-1.30 Serum or plasma urea nitrogen/creatinine mass ratio 10 NRG Serum or plasma creatinine measurement w ith calculation of estimated glomerular filtration rate > NRG Serum or plasma glucose measurement (mass/volume) 98 mg/dL 70-105 Serum or plasma calcium measurement (mass/volume) 9.3 mg/dL 8.5-10.1 Serum or plasma total bilirubin measurement (mass/volu me) 0.7 mg/dL 0.1-1.0 Serum or plasma alkaline phosphatase ashia surement (enzymatic activity/volume) 71 U/L 40-136 Serum or plasma aspartate aminotransfera se measurement (enzymatic activity/volume) 34 U/L 5-34 Serum or plasma alanine aminotransferase measurement (enzymatic activity/volume) 48 U/L 0-55 Serum or plasma protein measurement (mass/volume) 6.8 g/dL 6.4-8.2 Serum or plasma albumin measurement (mass/volume) 4.3 g/dL 3.2-4.5 CALCIUM CORRECTED 9.1 mg/dL 8.5-10.1 Complete urinalysis with reflex to cultu re - 04/02/18 11:34 Urine color determination YELLOW NRG Urine clarity determination CLEAR NR G Urine pH measurement by test strip 8 5-9 Specific gravity of urine by test strip 1.010 1.016-1.022 Urine protein assay by test strip, semi-quantitative NEGATIVE NEGATIVE Urine glucose detection by automated test strip NE GATIVE NEGATIVE Erythrocytes detection in urine sediment by light micr oscopy NEGATIVE NEGATIVE Urine ketones detection by automated test strip NE GATIVE NEGATIVE Urine nitrite detection by test strip NEGATIVE NEGATIVE Urine total bilirubin detection by test strip NEGA TIVE NEGATIVE Urine urobilinogen measurement by automated test strip (mass/volume) NORMAL NORMAL Urine leukocyte esterase detection by dipstick 1+ NEGATIVE Automated urine sediment erythrocyte cou nt by microscopy (number/high power field) NONE NRG Automated urine sediment leukocyte count by microscopy (number/high power field) RARE NRG Bacteria detection in urine sediment by light microsco py NEGATIVE NRG Squamous epithelial cells detection in u rine sediment by light microscopy 0-2 NRG Crystals detection in urine sediment by light microsco py NONE NRG Casts detection in urine sediment by light microscopy NONE NRG Mucus detection in urine sediment by light microscopy NEGATIVE NRG Complete urinalysis with reflex to culture NO NRG Methicillin resistant Staphylococcus aur eus (MRSA) screening culture - 04/09/18 09:24 Methicillin resistant Staphylococcus aureus (MRSA) scr eening culture NEG NRG Complete blood count (CBC) with automate d white blood cell (WBC) differential - 08/20/18 14:34 Blood leukocytes automated count (number/volume) 4.8 10*3/uL 4.3-11.0 Blood erythrocytes automated count (number/volume) 4.38 10*6/uL 4.35-5.85 Venous blood hemoglobin measurement (mass/volume) 14.7 g/dL 13.3-17.7 Blood hematocrit (volume fraction) 43 % 40-54 Automated erythrocyte mean corpuscular volume 97 [ foz_us] 80-99 Automated erythrocyte mean corpuscular h emoglobin (mass per erythrocyte) 34 pg 25-34 Automated erythrocyte mean corpuscular h emoglobin concentration measurement (mass/volume) 35 g/dL 32-36 Automated erythrocyte distribution width ratio 12. 8 % 10.0- 14.5 Automated blood platelet count (count/volume) 150 10*3/uL 130-400 Automated blood platelet mean volume measurement 10.9 [foz_us] 7.4-10.4 Automated blood neutrophils/100 leukocytes 59 % 42-75 Automated blood lymphocytes/100 leukocytes 31 % 12-44 Blood monocytes/100 leukocytes 9 % 0-12 Automated blood eosinophils/100 leukocytes 2 % 0-10 Automated blood basophils/100 leukocytes 0 % 0-10 Blood neutrophils automated count (number/volume) 2.8 10*3 1.8-7.8 Blood lymphocytes automated count (number/volume) 1.5 10*3 1.0-4.0 Blood monocytes automated count (number/volume) 0. 4 10*3 0.0-1.0 Automated eosinophil count 0.1 10*3/uL 0 .0-0.3 Automated blood basophil count (count/volume) 0.0 10*3/uL 0.0-0.1 Comprehensive metabolic panel - 08/20/18 14:34 Serum or plasma sodium measurement (moles/volume) 142 mmol/L 135-145 Serum or plasma potassium measurement (moles/volume) 4.2 mmol/L 3.6-5.0 Serum or plasma chloride measurement (moles/volume) 109 mmol/L 98-107 Carbon dioxide 21 mmol/L 21-32 Serum or plasma anion gap determination (moles/volume) 12 mmol/L 5-14 Serum or plasma urea nitrogen measurement (mass/volume ) 16 mg/dL 7-18 Serum or plasma creatinine measurement (mass/volume) 1.08 mg/dL 0.60-1.30 Serum or plasma urea nitrogen/creatinine mass ratio 15 NRG Serum or plasma creatinine measurement w ith calculation of estimated glomerular filtration rate > NRG Serum or plasma glucose measurement (mass/volume) 85 mg/dL 70-105 Serum or plasma calcium measurement (mass/volume) 9.2 mg/dL 8.5-10.1 Serum or plasma total bilirubin measurement (mass/volu me) 0.5 mg/dL 0.1-1.0 Serum or plasma alkaline phosphatase ashia surement (enzymatic activity/volume) 68 U/L 40-136 Serum or plasma aspartate aminotransfera se measurement (enzymatic activity/volume) 27 U/L 5-34 Serum or plasma alanine aminotransferase measurement (enzymatic activity/volume) 22 U/L 0-55 Serum or plasma protein measurement (mass/volume) 6.7 g/dL 6.4-8.2 Serum or plasma albumin measurement (mass/volume) 4.2 g/dL 3.2-4.5 CALCIUM CORRECTED 9.0 mg/dL 8.5-10.1 Lipase - 08/20/18 14:34 Lipase 42 U/L 8-78 Complete urinalysis with reflex to cultu re - 08/20/18 15:05 Urine color determination YELLOW NRG Urine clarity determination CLEAR NR G Urine pH measurement by test strip 5 5-9 Specific gravity of urine by test strip 1.025 1.016-1.022 Urine protein assay by test strip, semi-quantitative 1+ NEGATIVE Urine glucose detection by automated test strip NE GATIVE NEGATIVE Erythrocytes detection in urine sediment by light micr oscopy NEGATIVE NEGATIVE Urine ketones detection by automated test strip NE GATIVE NEGATIVE Urine nitrite detection by test strip NEGATIVE NEGATIVE Urine total bilirubin detection by test strip NEGA TIVE NEGATIVE Urine urobilinogen measurement by automated test strip (mass/volume) NORMAL NORMAL Urine leukocyte esterase detection by dipstick 1+ NEGATIVE Automated urine sediment erythrocyte cou nt by microscopy (number/high power field) NONE NRG Automated urine sediment leukocyte count by microscopy (number/high power field) [HPF] NRG Bacteria detection in urine sediment by light microsco py FEW NRG Crystals detection in urine sediment by light microsco py NONE NRG Casts detection in urine sediment by light microscopy NONE NRG Mucus detection in urine sediment by light microscopy NEGATIVE NRG Complete urinalysis with reflex to culture NO NRG BNP - 03/02/19 15:09 B TYPE NATRIURETIC PEPTIDE (BNP) 15 pg/mL <100 CRP - 03/02/19 16:25 C-REACTIVE PROTEIN 0.5 mg/L <8.0 RA (RHEUMATOID) FACTOR - 03/02/19 16:25 RHEUMATOID FACTOR <14 IU/mL <14 CULTURE, STOOL - 04/22/19 09:43 SALMONELLA AND SHIGELLA, CULTURE SEE NOTE NRG STOOL (C-DIFF) - 04/22/19 09:46 CLOSTRIDIUM DIFFICILE TOXIN/GDH W/REFL TO PCR SEE NOTE NRG CLOSTRIDIUM DIFFICILE TOXINB,QL REAL HUMA E PCR - 04/22/19 09:46 CLOSTRIDIUM DIFFICILE TOXINB,QL REAL TIME PCR NOT DETECTED NOT DETECTED Encounters ACCT No. Visit Date/Time Discharge Status Pt. Type Provider Facility Loc./Unit Complaint [id number] 2018 10:51:00 2018 23:59: 00 DIS Outpatient CAMILA PIERCE [id number] 12/26/2017 10:59:00 12/26/2017 23:59: 00 DIS Outpatient LUIZ KALLI [id number] 12/24/2017 15:40:00 12/24/2017 23:59: 00 DIS Outpatient KALLI DEE [id number] 12/24/2017 14:44:00 12/24/2017 23:59: 00 DIS Outpatient KALLI DEE [id number] 04/13/2019 08:00:00 04/13/2019 23:59: 59 CLS Outpatient CELESTINO LEDESMA [facility] [id number] 04/22/2019 08:45:00 Document Registration [id number] 03/02/2019 14:00:00 Document Registration [id number] 09/26/2017 09:20:00 Document Registration [id number] 07/26/2017 09:20:00 Document Registration [id number] 04/09/2019 14:34:00 23:59:59 CLS Outpatient CELESTINO LEDESMA [facility] RAD FS M54.41 M54.42 [id number] 09/09/2018 07:12:00 23:59:59 CLS Outpatient MISAEL SAMUELS DO [facility] CARD NAUSEA,ABD FULLNESS [id number] 08/20/2018 14:07:00 16:54:00 DIS Emergency RENETTA NOGUEIRA [facility] ER HERNIA [id number] 08/19/2018 14:56:00 23:59:59 CLS Outpatient CELESTINO LEDESMA [facility] RAD FS M25.571 [id number] 04/09/2018 08:59:00 019 14:30:00 DIS Outpatient ARVIND MARTINEZ MISAEL B [facility] SDC UMBILICAL HERNIA [id number] 04/08/2018 05:35:00 09:38:00 DIS Outpatient ARVIND MARTINEZMISAEL [facility] PREOP UMBILICAL HERNIA [id number] 04/07/2018 09:13:00 12:21:00 DIS Outpatient ARVIND MARTINEZMISAEL [facility] ENDO ABD PAIN [id number] 04/04/2018 10:59:00 23:59:59 CLS Outpatient ARVIND MARTINEZMISAEL [facility] PREOP COLONOSCOPY/EGD [id number] 04/01/2018 14:30:00 10:49:00 DIS Inpatient ARVIND MARTINEZMISAEL [facility] 4TH ACUTE DIVERTICULITIS [id number] 01/28/2018 12:05:00 23:59:59 CLS Outpatient DONALDO PEREZ MD [facility] RAD ABSENCE ATTACK [id number] 07/30/2017 10:54:00 23:59:59 CLS Outpatient DONALDO PEREZ MD [facility] RAD NEAR SYNCOPE [id number] 12/27/2017 19:10:00 Document Registration [id number] 12/27/2017 18:12:00 Document Registration [id number] 12/31/2017 16:26:00 Document Registration [id number] 12/27/2017 20:11:00 Document Registration
[2019-09-12 22:12] LABS: BASOPHILS % (AUTO) 0 % (0-10); EOSINOPHILS # (AUTO) 0.1 10^3/uL (0.0-0.3); EOSINOPHILS % (AUTO) 0 % (0-10); HEMATOCRIT 49 % (40-54); HEMOGLOBIN 16.8 G/DL (13.3-17.7); LYMPHOCYTES # (AUTO) 1.4 X 10^3 (1.0-4.0); LYMPHOCYTES % (AUTO) 11 % (12-44); MEAN CORPUSCULAR HEMOGLOBIN 33 PG (25-34); MEAN CORPUSCULAR HGB CONC 34 G/DL (32-36); MEAN CORPUSCULAR VOLUME 96 FL (80-99); MEAN PLATELET VOLUME 10.7 FL (7.4-10.4); MONOCYTES # (AUTO) 0.8 X 10^3 (0.0-1.0); MONOCYTES % (AUTO) 6 % (0-12); NEUTROPHILS # (AUTO) 10.8 X 10^3 (1.8-7.8); NEUTROPHILS % (AUTO) 83 % (42-75); PLATELET COUNT 195 10^3/uL (130-400); WHITE BLOOD COUNT 13.1 10^3/uL (4.3-11.0)
[2019-09-12] MEDS ORDERED: NS IV 1000 ML 1,000 ML IV SCH ×2 (22:15→22:45)
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
[2019-09-12 22:30] LABS: ALANINE AMINOTRANSFERASE 50 U/L (0-55); ALKALINE PHOSPHATASE 91 U/L (40-136); BILIRUBIN,TOTAL 0.9 MG/DL (0.1-1.0); BUN/CREATININE RATIO 7; CALCIUM 10.7 MG/DL (8.5-10.1); CARBON DIOXIDE 20 MMOL/L (21-32); CHLORIDE 98 MMOL/L (98-107); CREATININE SERUM 3.02 MG/DL (0.60-1.30); GFR ESTIMATED 27; GLUCOSE 115 MG/DL (70-105); POTASSIUM 5.3 MMOL/L (3.6-5.0); SODIUM 137 MMOL/L (135-145)
[2019-09-12] MEDS ORDERED: KETOROLAC 30 MG/ML VIAL IVP ONE (22:30)
[2019-09-12 22:31] LABS: ALBUMIN 5.6 GM/DL (3.2-4.5); TOTAL PROTEIN 8.8 GM/DL (6.4-8.2)
[2019-09-12 22:56] LABS: BILIRUBIN,URINE 2+ (NEGATIVE); CLARITY,URINE CLOUDY; COLOR,URINE DARK YELLOW; GLUCOSE, URINE (UA) TRACE (NEGATIVE); KETONES,URINE TRACE (NEGATIVE); LEUKOCYTE ESTERASE ,URINE TRACE (NEGATIVE); NITRITE,URINE NEGATIVE (NEGATIVE); PH,URINE 5.5 (5-9); PROTEIN,URINE 1+ (NEGATIVE)
[2019-09-12 22:59] LABS: WBC,URINE 25-50 /HPF
[2019-09-12 23:00] LABS: BACTERIA,URINE MODERATE /HPF; CALCIUM OXALATE CRYSTALS,UR CAOX MONOHYDRATE /LPF; GRANULAR CASTS,URINE 25-50 /LPF
--- NOTE | 2019-09-12 23:35 | NUR ---
ems here report and care given
--- NOTE | 2019-09-13 00:25 | NUR ---
JAMIE ECHAVARRIA admitted to room 413-1, with an admitting diagnosis of Acute Renal Failure with Dehydration, on 09/12/19 from [facility] via EMS, accompanied by STAFF.JAMIE ECHAVARRIA introduced to surroundings, call light, bed controls, phone, TV, temperature control, lights, meal times, smoking policy, visitor policy, side rail policy, bathrooms and showers. Patient Rights given to patient in the handbook. JAMIE ECHAVARRIA verbalizes understanding that [facility] is not responsible for the loss or damage to any personal effects or valuables that are kept in the patients posession during their hospitalization. The following Patient Care Plans were discussed with the PATIENT: Discharge Planning, ARF,ELECTROLYTE IMBALANCE, and UTI. JAMIE ECHAVARRIA verbalizes understanding of Interdisciplinary Patient Education. Patient and/or family were informed about the Rapid Response Team and its purpose.
--- OUTSIDE RECORDS SUMMARY | 2019-09-13 00:46 | XMS REPORT | Continuity of Care Document ---
Author Organization Unknown Address Unknown Phone Unavailable Allergies Active Description Code Type Severity Reaction Onset Reported/Identified Relationship to Patient Clinical Status Yes citalopram [id number] Drug Allerg y Unknown N/A 04/01/2018 Yes morphine [id number] Drug Allergy Unknown RASH 04/07/2018 Medications There is no data. Problems Date Dx Coded Attending Type Code Diagnosis Diagnosed By 07/31/2017 CHRIS GODFREY, DONALDO Valencia5 SYNCOPE AND COLLAPSE 07/31/2017 CHRIS GODFREY, DONALDO Torres SYNCOPE AND COLLAPSE 08/05/2017 CHRIS GODFREY, DONALDO Valencia5 SYNCOPE AND COLLAPSE 09/09/2017 CHRIS GODFREY, DONALDO Torres SYNCOPE AND COLLAPSE 10/11/2017 CHRIS GODFREY, DONALDO Torres SYNCOPE AND COLLAPSE 10/24/2017 CHRIS GODFREY, DONALDO Valencia5 SYNCOPE AND COLLAPSE 01/30/2018 CHRIS GODFREY, [...] MD Ot R55 SYNCOPE AND COLLAPSE 04/04/2018 DONALOD PEREZ MD Ot G40.A09 ABSENCE EPILEPTIC SYNDROME, [...] MISAEL SAMUELS DO Ot Z79.8 99 OTHER CHIEF DRAFTER (CURRENT) DRUG THERAPY 04/07/2018 MISAEL SAMUELS DO [...] SAMUELS DOIC B Ot Z79.8 99 OTHER CHIEF DRAFTER (CURRENT) DRUG THERAPY 04/08/2018 TRISH SAMUELS DOIC B Ot Z87.1 9 PERSONAL HISTORY OF OTHER DISEASES OF 04/09/2018 ARVIND MARTINEZ MISAEL B Ot Z01.8 18 ENCOUNTER FOR OTHER PREPROCEDURAL EXAMIN 04/09/2018 TRISH SAMUELS DOIC B Ot Z01.8 18 ENCOUNTER FOR OTHER PREPROCEDURAL EXAMIN 04/09/2018 ARVIND MARTINEZ MISAEL B Ot F17.2 10 NICOTINE DEPENDENCE, CIGARETTES, UNCOMPL 04/09/2018 ARVIND MARTIENZ MISAEL B Ot G62.9 POLYNEUROPATHY, UNSPECIFIED 04/09/2018 [...] MARTINEZ MISAEL B Ot Z79.8 99 OTHER HALF-WAY (CURRENT) DRUG THERAPY 04/09/2018 ARVIND MARTINEZ MISAEL [...] DO, MISAEL B Ot Z79.8 99 OTHER HALF-WAY (CURRENT) DRUG THERAPY 04/10/2018 DELMAN DO, MISAEL [...] DO, MISAEL B Ot Z79.8 99 OTHER CHIEF DRAFTER (CURRENT) DRUG THERAPY 04/12/2018 DELMAN DO, MISAEL [...] MARTINEZ MISAEL B Ot Z79.8 99 OTHER CHIEF DRAFTER (CURRENT) DRUG THERAPY 04/13/2018 ARVIND MARTINEZ MISAEL [...] MARTINEZ MISAEL B Ot Z79.8 99 OTHER HALF-WAY (CURRENT) DRUG THERAPY 04/14/2018 ARVIND MARTINEZ, MISAEL [...] FOR SCREENING FOR MALIGNANT NE 04/15/2018 MISAEL SAMUELS DO Ot Z79.8 99 OTHER HALF-WAY (CURRENT) DRUG THERAPY 04/15/2018 TRISH SAMUELS DOIC [...] SAMUELS DO B Ot Z79.8 99 OTHER HALF-WAY (CURRENT) DRUG THERAPY 04/17/2018 TRISH SAMUELS DOIC [...] SAMUELS DO B Ot Z79.8 99 OTHER HALF-WAY (CURRENT) DRUG THERAPY 04/17/2018 TRISH SAMUELS DOIC B Ot Z87.1 9 PERSONAL HISTORY OF OTHER DISEASES OF TH 08/20/2018 CELESTINO LEDESMA [employer] ATTENDANT Ot M25.871 OTHER SPECIFIED JOINT DISORDERS, RIGHT A 08/20/2018 CELESTINO LEDESMA [employer] ATTENDANT Ot M65.871 OTHER SYNOVITIS AND TENOSYNOVITIS, RIGHT [...] STATUS TO NARCOTIC AGENT STATUS 08/20/2018 RENETTA NGOUEIRA APRN Ot Z88 .8 ALLERGY STATUS TO OTH DRUG/MEDS/BIOL SUB 08/20/2018 RENETTA NOGUEIRA APRN Ot Z98.890 OTHER SPECIFIED POSTPROCEDURAL STATES 08/25/2018 RENETTA NOGUEIRA APRN Ot G62 .9 POLYNEUROPATHY, UNSPECIFIED 08/25/2018 RENETTA NOGUEIRA APRN Ot M79 .7 FIBROMYALGIA 08/25/2018 RENETTA NOGUEIRA APRN Ot R10.33 PERIUMBILICAL PAIN 08/25/2018 RENETTA NOGUEIRA APRN Ot X50.1XXA OVEREXERTION FROM PROLONGED STATIC OR AW 08/25/2018 RENETTA NOGUEIRA APRN Ot Y92.59 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 PDF . Protein Electro.,S - 12/24/17 15:50 Protein, Total, Serum 6.8 g/dL 6.0-8.5 Albumin 3.9 g/dL 2.9-4.4 Oxbma-8-Sytrhdnn 0.3 g/dL 0.0-0.4 Kjowq-3-Iccwfzgu 0.6 g/dL 0.4-1.0 Beta Globulin 1.0 g/dL [...] 30-150 ALBUMIN, U 31.5 % NOT ESTAB. VWHDJ-1-KSTRDQRC, U 14.0 % NOT ESTAB. YFDKP-1-KYDYPUSF, U 19.4 % NOT ESTAB. BETA GLOBULIN, U 7.4 % NOT ESTAB. GAMMA GLOBULIN, U 27.7 % NOT ESTAB. M-SPIKE, % NOT OBSERVED % NOT OBSERVED PDF . Heavy Metals Profile II, Urine - 8 11:12 ARSENIC (TOTAL),U NONE DETECTED UG/L 0-5 0 ARSENIC(INORGANIC),U NONE DETECTED UG/L 0-19 CREATININE(DIP PAINTER),U 0.64 G/L 0.30-3.00 LEAD, URINE NONE DETECTED UG/L 0-49 MERCURY, URINE NONE DETECTED UG/L 0-19 CADMIUM, URINE NONE DETECTED UG/L NONE D ETECTED Protein Electro, 24-Hour Urine - 8 11:12 Protein,Total,Urine 4.4 mg/dL Not Estab. Prot,24hr calculated 55 mg/24 hr 30-150 Albumin, U 31.5 % NOT ESTAB. Mjuvm-6-Pbhoqpdx, U 14.0 % NOT ESTAB. Zunwt-6-Uiehsxea, U 19.4 % NOT ESTAB. Beta Globulin, U 7.4 % NOT ESTAB. Gamma Globulin, U 27.7 % NOT ESTAB. M-Mehran, % Not Observed % Not Observed Please note: Comment PDF . Heavy Metals Profile II, Urine - 8 11:12 Creatinine(Outbound Sales Consultant),U 0.64 g/L 0.30-3.00 Arsenic (Total),U None [...] REAL TIME PCR NOT DETECTED NOT DETECTED Complete blood count (CBC) with automate d white blood cell (WBC) differential - 09/12/19 22:02 Blood leukocytes automated count (number/volume) 13.1 10*3/uL 4.3-11.0 Blood erythrocytes automated count (number/volume) 5.11 10*6/uL 4.35-5.85 Venous blood hemoglobin measurement (mass/volume) 16.8 g/dL 13.3-17.7 Blood hematocrit (volume fraction) 49 % 40-54 Automated erythrocyte mean corpuscular volume 96 [ foz_us] 80-99 Automated erythrocyte mean corpuscular h emoglobin (mass per erythrocyte) 33 pg 25-34 Automated erythrocyte mean corpuscular h emoglobin concentration measurement (mass/volume) 34 g/dL 32-36 Automated erythrocyte distribution width ratio 13. 0 % 10.0- 14.5 Automated blood platelet count (count/volume) 195 10*3/uL 130-400 Automated blood platelet mean volume measurement 10.7 [foz_us] 7.4-10.4 Automated blood neutrophils/100 leukocytes 83 % 42-75 Automated blood lymphocytes/100 leukocytes 11 % 12-44 Blood monocytes/100 leukocytes 6 % 0-12 Automated blood eosinophils/100 leukocytes 0 % 0-10 Automated blood basophils/100 leukocytes 0 % 0-10 Blood neutrophils automated count (number/volume) 10.8 10*3 1.8-7.8 Blood lymphocytes automated count (number/volume) 1.4 10*3 1.0-4.0 Blood monocytes automated count (number/volume) 0. 8 10*3 0.0-1.0 Automated eosinophil count 0.1 10*3/uL 0 .0-0.3 Automated blood basophil count (count/volume) 0.0 10*3/uL 0.0-0.1 Comprehensive metabolic panel - 09/12/19 22:02 Serum or plasma sodium measurement (moles/volume) 137 mmol/L 135-145 Serum or plasma potassium measurement (moles/volume) 5.3 mmol/L 3.6-5.0 Serum or plasma chloride measurement (moles/volume) 98 mmol/L 98-107 Carbon dioxide 20 mmol/L 21-32 Serum or plasma anion gap determination (moles/volume) 19 mmol/L 5-14 Serum or plasma urea nitrogen measurement (mass/volume ) 20 mg/dL 7-18 Serum or plasma creatinine measurement (mass/volume) 3.02 mg/dL 0.60-1.30 Serum or plasma urea nitrogen/creatinine mass ratio 7 NRG Serum or plasma creatinine measurement w ith calculation of estimated glomerular filtration rate 27 NRG Serum or plasma glucose measurement (mass/volume) 115 mg/dL 70-105 Serum or plasma calcium measurement (mass/volume) 10.7 mg/dL 8.5-10.1 Serum or plasma total bilirubin measurement (mass/volu me) 0.9 mg/dL 0.1-1.0 Serum or plasma alkaline phosphatase ashia surement (enzymatic activity/volume) 91 U/L 40-136 Serum or plasma aspartate aminotransfera se measurement (enzymatic activity/volume) 67 U/L 5-34 Serum or plasma alanine aminotransferase measurement (enzymatic activity/volume) 50 U/L 0-55 Serum or plasma protein measurement (mass/volume) 8.8 g/dL 6.4-8.2 Serum or plasma albumin measurement (mass/volume) 5.6 g/dL 3.2-4.5 TROPONIN I FS - 09/12/19 22:02 TROPONIN I FS < 0.30 <0.30 Complete urinalysis with reflex to cultu re - 09/12/19 22:40 Urine color determination DARK YELLOW N RG Urine clarity determination CLOUDY NR G Urine pH measurement by test strip 5.5 5-9 Specific gravity of urine by test strip >= 1.016-1.022 Urine protein assay by test strip, semi-quantitative 1+ NEGATIVE Urine glucose detection by automated test strip TR MAYURI NEGATIVE Erythrocytes detection in urine sediment by light micr oscopy NEGATIVE NEGATIVE Urine ketones detection by automated test strip TR MAYURI NEGATIVE Urine nitrite detection by test strip NEGATIVE NEGATIVE Urine total bilirubin detection by test strip 2+ NEGATIVE Urine urobilinogen measurement by automated test strip (mass/volume) 0.2 mg/dL < = 1.0 Urine leukocyte esterase detection by dipstick TRA CE NEGATIVE Automated urine sediment erythrocyte cou nt by microscopy (number/high power field) [HPF] NRG Automated urine sediment leukocyte count by microscopy (number/high power field) [HPF] NRG Bacteria detection in urine sediment by light microsco py MODERATE NRG Squamous epithelial cells detection in u rine sediment by light microscopy 5-10 NRG Crystals detection in urine sediment by light microsco py PRESENT NRG Casts detection in urine sediment by light microscopy PRESENT NRG Mucus detection in urine sediment by light microscopy LARGE NRG Complete urinalysis with reflex to culture YES NRG Calcium oxalate crystals detection in ur ine sediment by light microscopy CAOX MONOHYDRATE NRG Granular casts detection in urine sediment by light mi croscopy 25-50 NRG Coarse granular casts detection in urine sediment by l ight microscopy 2-5 NRG Encounters ACCT No. Visit Date/Time Discharge Status Pt. Type Provider Facility Loc./Unit Complaint [id number] 2018 10:51:00 2018 23:59: 00 DIS Outpatient CAMILA PIERCE [id number] 12/26/2017 10:59:00 12/26/2017 23:59: 00 DIS Outpatient KALLI DEE [id number] 12/24/2017 15:40:00 12/24/2017 23:59: 00 DIS Outpatient KALLI DEE [id number] 12/24/2017 14:44:00 12/24/2017 23:59: 00 DIS Outpatient KALLI DEE [id number] 04/13/2019 08:00:00 04/13/2019 23:59: 59 CLS Outpatient CELESTINO LEDESMA [facility] [id number] 04/22/2019 08:45:00 Document Registration [id number] 03/02/2019 14:00:00 Document Registration [id number] 09/26/2017 09:20:00 Document Registration [id number] 07/26/2017 09:20:00 Document Registration [id number] 04/09/2019 14:34:00 23:59:59 CLS Outpatient CELESTINO LEDESMA [employer] ATTENDANT [facility] RAD FS M54.41 M54.42 [id number] 09/09/2018 07:12:00 23:59:59 CLS Outpatient MISAEL SAMUELS DO [facility] CARD NAUSEA,ABD FULLNESS [id number] 08/20/2018 14:07:00 16:54:00 DIS Emergency RENETTA NOGUEIRA [employer] ATTEND[employer] [facility] ER HERNIA [id number] 08/19/2018 14:56:00 23:59:59 CLS Outpatient CELESTINO LEDESMA APRN [facility] RAD FS M25.571 [id number] 04/09/2018 08:59:00 14:30:00 DIS Outpatient DEEPALAYO MISAEL MARTINEZ [facility] SDC UMBILICAL HERNIA [id number] 04/08/2018 05:35:00 09:38:00 DIS Outpatient TRISH SAMUELS DOIC B [facility] PREOP UMBILICAL HERNIA [id number] 04/07/2018 09:13:00 12:21:00 DIS Outpatient ARVIND DO MISAEL B [facility] ENDO ABD PAIN [id number] 04/04/2018 10:59:00 23:59:59 CLS Outpatient ARVIND DO MISAEL B [facility] PREOP COLONOSCOPY/EGD [id number] 04/01/2018 14:30:00 10:49:00 DIS Inpatient DEEPALAYO MISAEL MARTINEZ [facility] 4TH ACUTE DIVERTICULITIS [id number] 01/28/2018 12:05:00 23:59:59 CLS Outpatient DONALDO PEREZ MD [facility] RAD ABSENCE ATTACK [id number] 07/30/2017 10:54:00 23:59:59 CLS Outpatient DONALDO PEREZ MD [facility] RAD NEAR SYNCOPE [id number] 09/12/2019 22:13:00 Document Registration [id number] 12/27/2017 19:10:00 Document Registration [id number] 12/27/2017 18:12:00 Document Registration [id number] 12/31/2017 16:26:00 Document Registration [id number] 12/27/2017 20:11:00 Document Registration
[2019-09-13] MEDS ORDERED: fentaNYL INJECTION 100 MCG/2 ML AMP IV PRN (01:30)
[2019-09-13] MEDS: NS IV 1000 ML 1,000 ML IV SCH ×5 (02:05→22:27)
[2019-09-13 04:00] VITALS: BP 89/54
[2019-09-13 05:49] LABS: ALBUMIN 3.7 GM/DL (3.2-4.5)
[2019-09-13 05:50] LABS: POTASSIUM 4.4 MMOL/L (3.6-5.0)
[2019-09-13 05:51] LABS: CALCIUM 7.9 MG/DL (8.5-10.1)
[2019-09-13 05:52] LABS: TOTAL PROTEIN 6.3 GM/DL (6.4-8.2)
[2019-09-13 05:54] LABS: BILIRUBIN,TOTAL 0.7 MG/DL (0.1-1.0)
[2019-09-13 05:56] LABS: CREATININE SERUM 1.8 MG/DL (0.60-1.30)
--- NOTE | 2019-09-13 06:19 | Diagnostic Imaging Report ---
EXAMINATION: Portable erect AP chest at 1016 PM INDICATION: Chest pain There are no prior chest exams available for comparison. The heart size is within normal limits. The perihilar markings are somewhat prominent but there is no sign of failure, pneumonia or pleural effusion. The mediastinum is not widened. The osseous structures are intact. IMPRESSION: There is no evidence for active disease. Dictated by: Dictated on workstation # [id number]
[2019-09-13 08:24] VITALS: BP 105/65
[2019-09-13 10:24] LABS: BILIRUBIN,URINE 1+ (NEGATIVE); CLARITY,URINE CLEAR; COLOR,URINE YELLOW; GLUCOSE, URINE (UA) NEGATIVE (NEGATIVE); KETONES,URINE NEGATIVE (NEGATIVE); LEUKOCYTE ESTERASE ,URINE NEGATIVE (NEGATIVE); NITRITE,URINE NEGATIVE (NEGATIVE); PROTEIN,URINE TRACE (NEGATIVE)
[2019-09-13 10:55] LABS: BACTERIA,URINE TRACE /HPF
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
--- NOTE | 2019-09-13 11:49 | History & Physical-Hospitalist ---
History of Present Illness HPI/Chief Complaint This is a 54-year-old black male who presented to the emergency room with complaints of chest tightness and muscle cramping. He was found to be in acute renal failure with a creatinine of 3.02. He had no known renal insufficiency. He does have a history of gout for which she takes meloxicam. 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 In addition 2 days prior to this presentation he had had 3 MRIs 3 injections of gadolinium Source: patient Exam Limitations: clinical condition Date Seen 09/13/19 Time Seen by a Provider: 11:45 Attending Physician Cait Genao MD PCP Center/[facility] Referring Physician Date of Admission Sep 12, 2019 at 23:16 Home Medications & Allergies Home Medications Reviewed patient Home Medication Reconciliation performed by pharmacy medication reconciliations bicycle repair technician and/or nursing. Patients Allergies have been reviewed. 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) Alcohol Use: Occasionally Uses Number of Drinks Today: AA Alcohol Beverage of Choice: Beer Recreational Drug Use: No Smoking Status: Current Everyday Smoker Type Used: Cigarettes Recent Foreign Travel: No Contact w/other who traveled: No Recent Hopitalizations: No (DIVERTICULITIS) Recent Infectious Disease Expo: No Immunizations Up To Date Date of Influenza Vaccine: Nov 18, 2017 Seasonal Allergies Seasonal Allergies: No Past Medical History Surgeries: Abdominal (Hernia) Neurological: Neuropathy Gastrointestinal: Abdominal Hernia, Diverticulosis History of Blood Disorders: No Multiple tovar second and third degree when he was 20 years old Family History FH: colonic diverticulitis No Pertinent Family Hx Review of Systems Constitutional: see HPI EENTM: no symptoms reported Respiratory: no symptoms reported Cardiovascular: other (Chest tightness) Gastrointestinal: no symptoms reported Genitourinary: other (Dark urine for the last 2-3 days) Musculoskeletal: muscle cramps Skin: no symptoms reported Psychiatric/Neurological: Numbness, Paresthesia Physical Exam Physical Exam Vital Signs Vital Signs - First Documented 09/12/19 22:10 Temp 36.4 Pulse 98 Resp 19 B/P (MAP) 118/78 (91) Pulse Ox 96 O2 Delivery Room Air Capillary Refill : Less Than 3 Seconds Height, Weight, BMI Height: 5'9.00" Weight: 192lbs. 0.0oz. 87.716476kx; 30.00 BMI Method:Stated General Appearance: No Apparent Distress, WD/WN HEENT: TMs Normal, Normal ENT Inspection, Pharynx Normal Neck: Full Range of Motion, Normal Inspection, Non Tender, Supple Respiratory: Chest Non Tender, Lungs Clear, Normal Breath Sounds, No Accessory Muscle Use, No Respiratory Distress Cardiovascular: Regular Rate, Rhythm, No Edema, No JVD, No Murmur, Normal Peripheral Pulses Gastrointestinal: Normal Bowel Sounds, No Organomegaly, No Pulsatile Mass, Non Tender, Soft Rectal: Deferred Back: Normal Inspection, No CVA Tenderness Extremity: Non Tender, No Calf Tenderness, No Pedal Edema Neurologic/Psychiatric: Alert, Oriented x3, No Motor/Sensory Deficits, Normal Mood/Affect Skin: Normal Color, Warm/Dry, Other (Multiple areas from previous tovar) Results Results/Procedures Labs Laboratory Tests 09/12/19 22:02 09/13/19 05:24 Patient resulted labs reviewed. Assessment/Plan Admission Diagnosis Acute non-oliguric renal failure secondary to dehydration NSAIDs. Plan for jayna l sonogram and 24 hour urine for creatinine clearance and to avoid any further insult to his kidney Peripheral neuropathy Undergoing evaluation for MS Admission Status: Observation Clinical Quality Measures DVT/VTE Risk/Contraindication: Risk Factor Score Per Nursin RFS Level Per Nursing on Admit: 1=Low/No VTE PPX Copy Copies To 1: [facility]/CAIT DEUTSCH MD Sep 13, 2019 11:49
[2019-09-13 12:01] VITALS: BP 104/60
[2019-09-13] MEDS: HYDROcodone/APAP 5 MG/325 MG (LORTAB) TAB PO SCH ×3 (12:38→22:27)
[2019-09-13] MEDS ORDERED: GABAPENTIN 300 MG (NEURONTIN) CAP PO SCH ×2 (13:00→21:00)
[2019-09-13] MEDS ORDERED: ENOXAPARIN 30 MG/0.3 ML (LOVENOX) SYR SC SCH (13:00)
[2019-09-13 16:21] VITALS: BP 98/63
[2019-09-13] MEDS: GABAPENTIN 300 MG (NEURONTIN) CAP PO SCH ×3 (17:03→20:28)
[2019-09-13 19:48] VITALS: BP 94/64
[2019-09-14 00:36] VITALS: BP 105/58
[2019-09-14 04:30] VITALS: BP 119/65
[2019-09-14 05:27] LABS: BASOPHILS % (AUTO) 0 % (0-10); EOSINOPHILS # (AUTO) 0.1 10^3/uL (0.0-0.3); EOSINOPHILS % (AUTO) 1 % (0-10); HEMATOCRIT 41 % (40-54); HEMOGLOBIN 13.4 G/DL (13.3-17.7); LYMPHOCYTES # (AUTO) 1.2 X 10^3 (1.0-4.0); LYMPHOCYTES % (AUTO) 29 % (12-44); MEAN CORPUSCULAR HEMOGLOBIN 32 PG (25-34); MEAN CORPUSCULAR HGB CONC 33 G/DL (32-36); MEAN CORPUSCULAR VOLUME 98 FL (80-99); MEAN PLATELET VOLUME 10.4 FL (7.4-10.4); MONOCYTES # (AUTO) 0.3 X 10^3 (0.0-1.0); MONOCYTES % (AUTO) 8 % (0-12); NEUTROPHILS # (AUTO) 2.6 X 10^3 (1.8-7.8); NEUTROPHILS % (AUTO) 62 % (42-75); PLATELET COUNT 129 10^3/uL (130-400); RED CELL DISTRIBUTION WIDTH 13.3 % (10.0-14.5); WHITE BLOOD COUNT 4.1 10^3/uL (4.3-11.0)
[2019-09-14 05:36] LABS: ALBUMIN 3.5 GM/DL (3.2-4.5)
[2019-09-14 05:37] LABS: CHLORIDE 115 MMOL/L (98-107); POTASSIUM 4.8 MMOL/L (3.6-5.0); SODIUM 141 MMOL/L (135-145)
[2019-09-14 05:39] LABS: GLUCOSE 96 MG/DL (70-105); TOTAL PROTEIN 5.6 GM/DL (6.4-8.2)
[2019-09-14 05:40] LABS: CARBON DIOXIDE 19 MMOL/L (21-32)
[2019-09-14] MEDS: NS IV 1000 ML 1,000 ML IV SCH (05:40)
[2019-09-14] MEDS: HYDROcodone/APAP 5 MG/325 MG (LORTAB) TAB PO SCH (05:40)
[2019-09-14 05:41] LABS: BILIRUBIN,TOTAL 0.7 MG/DL (0.1-1.0)
[2019-09-14 05:42] LABS: ALKALINE PHOSPHATASE 64 U/L (40-136)
[2019-09-14 05:43] LABS: CREATININE SERUM 1.13 MG/DL (0.60-1.30); GFR ESTIMATED > 60
[2019-09-14 05:44] LABS: BUN/CREATININE RATIO 14
[2019-09-14 05:46] LABS: ALANINE AMINOTRANSFERASE 29 U/L (0-55)
[2019-09-14 07:30] VITALS: BP 128/80
--- NOTE | 2019-09-14 08:00 | NUR ---
FOUND 24 HOUR URINE NOT STARTED. PT VOIDED, 24 HOUR URINE STARTED AT THIS TIME.
[2019-09-14] MEDS: GABAPENTIN 300 MG (NEURONTIN) CAP PO SCH (08:37)
[2019-09-14] MEDS ORDERED: ALLOPURINOL 300 MG (ZYLOPRIM) TAB PO SCH (09:00)
--- NOTE | 2019-09-14 09:26 | Diagnostic Imaging Report ---
PROCEDURE: US Renal Bilateral. TECHNIQUE: Multiple real-time grayscale images were obtained over the kidneys in various projections bilaterally. INDICATION: Renal failure. Exam interpreted in correlation with abdominal pelvic CT 08/20/2018. FINDINGS: The right kidney measured 8 cm maximal, the left 11 cm maximal. Cortical thickness and echotextures were unremarkable. There is no solid or cystic renal mass. The urinary bladder unremarkable. The right ureteral jet visualized, the left could not be seen but no hydronephrosis. IMPRESSION: Unobstructed kidneys, nonfocal, unremarkable appearance of the urinary bladder. Dictated by: Dictated on workstation # [id number]
--- NOTE | 2019-09-14 10:23 | Discharge Summary ---
Discharge Summary Hospital Course Was the Problem List Reviewed?: Yes Problems/Dx: (1) ARF (acute renal failure) Status: Acute Qualifiers: Qualified Codes: N17.9 - Acute kidney failure, unspecified Hospital Course Date of Admission: Sep 12, 2019 at 23:16 Admission Diagnosis : Family Physician/Provider: Salma Eric Aprn Date of Discharge: 09/14/19 Discharge Diagnosis: ARF HTN IV contrast recently Hospital Course: Standard course after admitted for ARF. He tolerated aggressive IVF and help Violet and will DC today with close f/u with Dr Araceli Garcia. Labs and Pending Lab Test: Laboratory Tests 09/14/19 05:10: White Blood Count 4.1L, Red Blood Count 4.18L, Hemoglobin 13.4#, Hematocrit 41, Mean Corpuscular Volume 98, Mean Corpuscular Hemoglobin 32, Mean Corpuscular Hemoglobin Concent 33, Red Cell Distribution Width 13.3, Platelet Count 129L, Mean Platelet Volume 10.4, Neutrophils (%) (Auto) 62, Lymphocytes (%) (Auto) 29, Monocytes (%) (Auto) 8, Eosinophils (%) (Auto) 1, Basophils (%) (Auto) 0, Neutrophils # (Auto) 2.6, Lymphocytes # (Auto) 1.2, Monocytes # (Auto) 0.3, Eosinophils # (Auto) 0.1, Basophils # (Auto) 0.0, Sodium Level 141, Potassium Level 4.8, Chloride Level 115H, Carbon Dioxide Level 19L, Anion Gap 7, Blood Urea Nitrogen 16, Creatinine 1.13, Estimat Glomerular Filtration Rate > 60, BUN/Creatinine Ratio 14, Glucose Level 96, Calcium Level 8.0L, Corrected Calcium 8.4L, Total Bilirubin 0.7, Aspartate Amino Transf (AST/SGOT) 32, Alanine Aminotransferase (ALT/SGPT) 29, Alkaline Phosphatase 64, Total Protein 5.6L, Albumin 3.5 Home Meds Active Hydrocodone/Acetaminophen 5 MG/325 MG TAB (Hydrocodone/Acetaminophen) 1 Each Tablet 1 Tab PO Q6H MDD 10 TABS 2 Days Lortab 5 Mg Tablet (Acetaminophen/Hydrocodone Bitart) 1 Tab Tab 1 Tab PO Q6H PRN MDD 10 Ondansetron Odt (Ondansetron) 8 Mg Tab.rapdis 8 Mg PO Q8H Reported Gabapentin 300 Mg Capsule 300 Mg PO TID LAST FILLED #90 10-29-17 Meloxicam 15 Mg Tablet 15 Mg PO DAILY Allopurinol 300 Mg Tablet 300 Mg PO DAILY LAST FILLED JULY 2017 Vitamin B-12 (Cyanocobalamin (Vitamin B-12)) 1,000 Mcg Tablet 1,000 Mcg PO DAILY Vitamin C (Ascorbate Calcium) 500 Mg Tablet 500 Mg PO DAILY Assessment/Pt Instructions [facility] on Saturday Discharge Planning: <30 minutes discharge planning Discharge Instructions Discharge Diet: Regular Diet Activity as Tolerated: Yes Discharge Physical Examination Vital Signs Vital Signs Date Time Temp Pulse Resp B/P (MAP) Pulse Ox O2 Delivery O2 Flow Rate FiO2 09/14/19 08:15 98 Room Air 09/14/19 07:30 36.4 71 20 128/80 (96) General Appearance: No Apparent Distress, WD/WN, Chronically ill Neurologic/Psychiatric: Alert, Oriented x3 Allergies: Coded Allergies: citalopram (Unverified Allergy, Unknown, 04/01/18) ALLERGY INFO FROM ADMISSION ORDER morphine (Verified Allergy, Unknown, RASH, 04/07/18) Discharge Summary Date of Admission Sep 12, 2019 at 23:16 Date of Discharge Discharge Date: Sep 14, 2019 Admission Diagnosis Acute non-oliguric renal failure secondary to dehydration NSAIDs. Plan for renal sonogram and 24 hour urine for creatinine clearance and to avoid any further insult to his kidney Peripheral neuropathy Undergoing evaluation for MS Discharge Diagnosis Assessment: ARF Dehydration IV contrast Clinical Quality Measures DVT/VTE Risk/Contraindication: Risk Factor Score Per Nursin RFS Level Per Nursing on Admit: 1=Low/No VTE PPX DANYELLE RITTER DO Sep 14, 2019 10:23
--- NOTE | 2019-09-14 10:48 | NUR ---
RX AND INST AND VERBALIZED UNDERSTANDING. DR. RITTER REQUESTS TO CANCEL 24 HOUR URINE. DC'D AMB WITH SO AND STAFF.
--- NOTE | 2019-09-14 10:58 | NUR ---
I SPOKE WITH THE PATIENT AND WENT THROUGH THE EXTERNAL MED HISTORY. HOWEVER, THE PATIENT WAS DISCHARGED BEFORE I COULD COMPLETE THE MED REC. HIS LIST OF MEDICATIONS LINED UP WITH THE EXTERNAL MED HISTORY OTHER THAN THE TRAMADOL THAT HE SAID HE GETS FROM MAIL ORDER. I DID NOT COMPLETE THE MED REC AT THIS TIME BECAUSE THE PATIENT IS NOW DISCHARGED.
[2019-09-14] MEDS ORDERED: ENOXAPARIN 40 MG/0.4 ML (LOVENOX) SYR SC SCH (13:30)
--- OUTSIDE RECORDS SUMMARY | 2019-09-21 12:27 | XMS REPORT | Continuity of Care Document ---
Author Organization Unknown Address Unknown Phone Unavailable Allergies Active Description Code Type Severity Reaction Onset Reported/Identified Relationship to Patient Clinical Status Yes citalopram [id number] Drug Allerg y Unknown N/A 04/01/2018 Yes morphine [id number] Drug Allergy Unknown RASH 04/07/2018 Medications There [...] DO Ot K64.8 OTHER HEMORRHOIDS 04/07/2018 MISAEL SMAUELS DO Ot M79.7 FIBROMYALGIA 04/07/2018 MISAEL SAMUELS DO Ot Z12.1 1 ENCOUNTER FOR SCREENING FOR MALIGNANT NE 04/07/2018 MISAEL SAMUELS DO Ot Z79.8 99 OTHER SNF (CURRENT) DRUG THERAPY 04/07/2018 MISAEL SAMUELS DO [...] SAMUELS DOIC B Ot Z79.8 99 OTHER MANAGER MASS (CURRENT) DRUG THERAPY 04/08/2018 TRISH SAMUELS DOIC [...] MARTINEZ MISAEL B Ot Z79.8 99 OTHER SNF (CURRENT) DRUG THERAPY 04/09/2018 ARVIND MARTINEZ MISAEL [...] DO, MISAEL B Ot Z79.8 99 OTHER SNF (CURRENT) DRUG THERAPY 04/10/2018 DELMAN DO, MISAEL [...] DO, MISAEL B Ot Z79.8 99 OTHER MANAGER MASS (CURRENT) DRUG THERAPY 04/12/2018 DELMAN DO, MISAEL [...] MARTINEZ MISAEL B Ot Z79.8 99 OTHER SNF (CURRENT) DRUG THERAPY 04/13/2018 ARVIND MARTINEZ MISAEL [...] MARTINEZ MISAEL B Ot Z79.8 99 OTHER SNF (CURRENT) DRUG THERAPY 04/14/2018 ARVIND MARTINEZ, MISAEL [...] MISAEL SAMUELS DO Ot Z79.8 99 OTHER SNF (CURRENT) DRUG THERAPY 04/15/2018 TRISH SAMUELS DOIC [...] SAMUELS DO B Ot Z79.8 99 OTHER SNF (CURRENT) DRUG THERAPY 04/17/2018 TRISH SAMUELS DOIC [...] SAMUELS DO B Ot Z79.8 99 OTHER MANAGER MASS (CURRENT) DRUG THERAPY 04/17/2018 TRISH SAMUELS DOIC B Ot Z87.1 9 PERSONAL HISTORY OF OTHER DISEASES OF TH 08/20/2018 CELESTINO LEDESMA MOTOR REBUILDER Ot M25.871 OTHER SPECIFIED JOINT DISORDERS, RIGHT A 08/20/2018 CELESTINO LEDESMA MOTOR REBUILDER Ot M65.871 OTHER SYNOVITIS AND TENOSYNOVITIS, RIGHT [...] AW 08/25/2018 RENETTA NOGUEIRA APRN Ot Y92.59 [facility] 08/25/2018 RENETTA NOGUEIRA APRN [...] OTHER SPECIFIED POSTPROCEDURAL STATES 09/04/2018 CELESTINO LEDESMA MOTOR REBUILDER Ot M25.871 OTHER SPECIFIED JOINT DISORDERS, RIGHT A 09/04/2018 CELESTINO LEDESMA MOTOR REBUILDER Ot M65.871 OTHER SYNOVITIS AND TENOSYNOVITIS, RIGHT 04/29/2019 CELESTINO LEDESMA MOTOR REBUILDER Ot M43.8X4 OTHER SPECIFIED DEFORMING DORSOPATHIES, 04/29/2019 CELESTINO LEDESMA MOTOR REBUILDER Ot M50.323 OTHER CERVICAL DISC DEGENERATION AT C6-C 04/29/2019 CELESTINO LEDESMA MOTOR REBUILDER Ot M54.41 LUMBAGO WITH SCIATICA, RIGHT SIDE 04/29/2019 BALTAZAR, CELESTINO S MOTOR REBUILDER Ot M54.42 LUMBAGO WITH SCIATICA, LEFT SIDE 09/12/2019 DONALDO PEREZ MD Ot R55 SYNCOPE AND COLLAPSE 09/12/2019 DONALDO PEREZ MD Ot G40.A09 ABSENCE EPILEPTIC SYNDROME, NOT INTRACTA 09/12/2019 DONALDO PEREZ MD Ot R55 SYNCOPE AND COLLAPSE 09/12/2019 DELMAN DO, MISAEL B Ot Z01.8 18 ENCOUNTER FOR OTHER PREPROCEDURAL EXAMIN 09/12/2019 BALTAZAR, CELESTINO S MOTOR REBUILDER Ot M25.871 OTHER SPECIFIED JOINT DISORDERS, RIGHT A 09/12/2019 BALTAZAR, CELESTINO S MOTOR REBUILDER Ot M65.871 OTHER SYNOVITIS AND TENOSYNOVITIS, RIGHT 09/12/2019 DELMAN DO, MISAEL B Ot R11.0 NAUSEA 09/12/2019 DELMAN DO, MISAEL B Ot R14.0 ABDOMINAL DISTENSION (GASEOUS) 09/12/2019 BALTAZAR, CELESTINO S MOTOR REBUILDER Ot M43.8X4 OTHER SPECIFIED DEFORMING DORSOPATHIES, 09/12/2019 BALTAZAR, CELESTINO S MOTOR REBUILDER Ot M50.323 OTHER CERVICAL DISC DEGENERATION AT C6-C 09/12/2019 BALTAZAR, CELESTINO S MOTOR REBUILDER Ot M54.41 LUMBAGO WITH SCIATICA, RIGHT SIDE 09/12/2019 BALTAZAR, CELESTINO S MOTOR REBUILDER Ot M54.42 LUMBAGO WITH SCIATICA, LEFT SIDE 09/12/2019 DONALDO PEREZ MD Ot R55 SYNCOPE AND COLLAPSE 09/12/2019 DONALDO PEREZ MD Ot G40.A09 ABSENCE EPILEPTIC SYNDROME, NOT INTRACTA 09/12/2019 DONALDO PEREZ MD Ot R55 SYNCOPE AND COLLAPSE 09/12/2019 DELMAN DO, MISAEL B Ot Z01.8 18 ENCOUNTER FOR OTHER PREPROCEDURAL EXAMIN 09/12/2019 BALTAZAR, CELESTINO S MOTOR REBUILDER Ot M25.871 OTHER SPECIFIED JOINT DISORDERS, RIGHT A 09/12/2019 BALTAZAR, CELESTINO S MOTOR REBUILDER Ot M65.871 OTHER SYNOVITIS AND TENOSYNOVITIS, RIGHT 09/12/2019 DELMAN DO, MISAEL B Ot R11.0 NAUSEA 09/12/2019 DELMAN DO, MISAEL B Ot R14.0 ABDOMINAL DISTENSION (GASEOUS) 09/12/2019 BALTAZAR, CELESTINO S MOTOR REBUILDER Ot M43.8X4 OTHER SPECIFIED DEFORMING DORSOPATHIES, 09/12/2019 BALTAZAR, CELESTINO S MOTOR REBUILDER Ot M50.323 OTHER CERVICAL DISC DEGENERATION AT C6-C 09/12/2019 BALTAZAR, CELESTINO S MOTOR REBUILDER Ot M54.41 LUMBAGO WITH SCIATICA, RIGHT SIDE 09/12/2019 BALTAZAR, CELESTINO S MOTOR REBUILDER Ot M54.42 LUMBAGO WITH SCIATICA, LEFT SIDE 09/12/2019 DONALDO PEREZ MD Ot R55 SYNCOPE AND COLLAPSE 09/12/2019 DONALDO PEREZ MD Ot G40.A09 ABSENCE EPILEPTIC SYNDROME, NOT INTRACTA 09/12/2019 DONALDO PEREZ MD Ot R55 SYNCOPE AND COLLAPSE 09/12/2019 DELMAN DO, MISAEL B Ot Z01.8 18 ENCOUNTER FOR OTHER PREPROCEDURAL EXAMIN 09/12/2019 BALTAZAR, CELESTINO S MOTOR REBUILDER Ot M25.871 OTHER SPECIFIED JOINT DISORDERS, RIGHT A 09/12/2019 BALTAZAR, CELESTINO S MOTOR REBUILDER Ot M65.871 OTHER SYNOVITIS AND TENOSYNOVITIS, RIGHT 09/12/2019 DELMAN DO, MISAEL B Ot R11.0 NAUSEA 09/12/2019 DELMAN DO, MISAEL B Ot R14.0 ABDOMINAL DISTENSION (GASEOUS) 09/12/2019 BALTAZAR, CELESTINO S MOTOR REBUILDER Ot M43.8X4 OTHER SPECIFIED DEFORMING DORSOPATHIES, 09/12/2019 BALTAZAR, CELESTINO S MOTOR REBUILDER Ot M50.323 OTHER CERVICAL DISC DEGENERATION AT C6-C 09/12/2019 BALTAZAR, CELESTINO S MOTOR REBUILDER Ot M54.41 LUMBAGO WITH SCIATICA, RIGHT SIDE 09/12/2019 BALTAZAR, CELESTINO S MOTOR REBUILDER Ot M54.42 LUMBAGO WITH SCIATICA, LEFT SIDE 09/12/2019 DONALDO PEREZ MD Ot R55 SYNCOPE AND COLLAPSE 09/12/2019 DONALDO PEREZ MD Ot G40.A09 ABSENCE EPILEPTIC SYNDROME, NOT INTRACTA 09/12/2019 DONALDO PEREZ MD Ot R55 SYNCOPE AND COLLAPSE 09/12/2019 DELMAN DO, MISAEL B Ot Z01.8 18 ENCOUNTER FOR OTHER PREPROCEDURAL EXAMIN 09/12/2019 BALTAZAR, CELESTINO S MOTOR REBUILDER Ot M25.871 OTHER SPECIFIED JOINT DISORDERS, RIGHT A 09/12/2019 BALTAZAR, CELESTINO S MOTOR REBUILDER Ot M65.871 OTHER SYNOVITIS AND TENOSYNOVITIS, RIGHT 09/12/2019 DELMAN DO, MISAEL B Ot R11.0 NAUSEA 09/12/2019 DELMAN DO, MISAEL B Ot R14.0 ABDOMINAL DISTENSION (GASEOUS) 09/12/2019 BALTAZAR, CELESTINO S MOTOR REBUILDER Ot M43.8X4 OTHER SPECIFIED DEFORMING DORSOPATHIES, 09/12/2019 BALTAZAR, CELESTINO S MOTOR REBUILDER Ot M50.323 OTHER CERVICAL DISC DEGENERATION AT C6-C 09/12/2019 BALTAZAR, CELESTINO S MOTOR REBUILDER Ot M54.41 LUMBAGO WITH SCIATICA, RIGHT SIDE 09/12/2019 BALTAZAR, CELESTINO S MOTOR REBUILDER Ot M54.42 LUMBAGO WITH SCIATICA, LEFT SIDE 09/12/2019 DONALDO PEREZ MD Ot R55 SYNCOPE AND COLLAPSE 09/12/2019 DONALDO PEREZ MD Ot G40.A09 ABSENCE EPILEPTIC SYNDROME, NOT INTRACTA 09/12/2019 DONALDO PEREZ MD Ot R55 SYNCOPE AND COLLAPSE 09/12/2019 DELMAN DO, MISAEL B Ot Z01.8 18 ENCOUNTER FOR OTHER PREPROCEDURAL EXAMIN 09/12/2019 BALTAZAR, CELESTINO S MOTOR REBUILDER Ot M25.871 OTHER SPECIFIED JOINT DISORDERS, RIGHT A 09/12/2019 BALTAZAR, CELESTINO S MOTOR REBUILDER Ot M65.871 OTHER SYNOVITIS AND TENOSYNOVITIS, RIGHT 09/12/2019 DELMAN DO, MISAEL B Ot R11.0 NAUSEA 09/12/2019 DELMAN DO, MISAEL B Ot R14.0 ABDOMINAL DISTENSION (GASEOUS) 09/12/2019 BALTAZAR, CELESTINO S MOTOR REBUILDER Ot M43.8X4 OTHER SPECIFIED DEFORMING DORSOPATHIES, 09/12/2019 BALTAZAR, CELESTINO S MOTOR REBUILDER Ot M50.323 OTHER CERVICAL DISC DEGENERATION AT C6-C 09/12/2019 BALTAZAR, CELESTINO S MOTOR REBUILDER Ot M54.41 LUMBAGO WITH SCIATICA, RIGHT SIDE 09/12/2019 BALTAZAR, CELESTINO S MOTOR REBUILDER Ot M54.42 LUMBAGO WITH SCIATICA, LEFT SIDE 09/12/2019 DONALDO PEREZ MD Ot R55 SYNCOPE AND COLLAPSE 09/12/2019 DONALDO PEREZ MD Ot G40.A09 ABSENCE EPILEPTIC SYNDROME, NOT INTRACTA 09/12/2019 DONALDO PEREZ MD Ot R55 SYNCOPE AND COLLAPSE 09/12/2019 DELMAN DO, MISAEL B Ot Z01.8 18 ENCOUNTER FOR OTHER PREPROCEDURAL EXAMIN 09/12/2019 BALTAZAR, CELESTINO S MOTOR REBUILDER Ot M25.871 OTHER SPECIFIED JOINT DISORDERS, RIGHT A 09/12/2019 BALTAZAR, CELESTINO S MOTOR REBUILDER Ot M65.871 OTHER SYNOVITIS AND TENOSYNOVITIS, RIGHT 09/12/2019 DELMAN DO, MISAEL B Ot R11.0 NAUSEA 09/12/2019 DELMAN DO, MISAEL B Ot R14.0 ABDOMINAL DISTENSION (GASEOUS) 09/12/2019 BALTAZAR, CELESTINO S MOTOR REBUILDER Ot M43.8X4 OTHER SPECIFIED DEFORMING DORSOPATHIES, 09/12/2019 BALTAZAR, CELESTINO S MOTOR REBUILDER Ot M50.323 OTHER CERVICAL DISC DEGENERATION AT C6-C 09/12/2019 BALTAZAR, CELESTINO S MOTOR REBUILDER Ot M54.41 LUMBAGO WITH SCIATICA, RIGHT SIDE 09/12/2019 BALTAZAR, CELESTINO S MOTOR REBUILDER Ot M54.42 LUMBAGO WITH SCIATICA, LEFT SIDE 09/12/2019 DONALDO PEREZ MD Ot R55 SYNCOPE AND COLLAPSE 09/12/2019 DONALDO PEREZ MD Ot G40.A09 ABSENCE EPILEPTIC SYNDROME, NOT INTRACTA 09/12/2019 DONALDO PEREZ MD Ot R55 SYNCOPE AND COLLAPSE 09/12/2019 DELMAN DO, MISAEL B Ot Z01.8 18 ENCOUNTER FOR OTHER PREPROCEDURAL EXAMIN 09/12/2019 BALTAZAR, CELESTINO S MOTOR REBUILDER Ot M25.871 OTHER SPECIFIED JOINT DISORDERS, RIGHT A 09/12/2019 BALTAZAR, CELESTINO S MOTOR REBUILDER Ot M65.871 OTHER SYNOVITIS AND TENOSYNOVITIS, RIGHT 09/12/2019 DELMAN DO, MISAEL B Ot R11.0 NAUSEA 09/12/2019 DELMAN DO, MISAEL B Ot R14.0 ABDOMINAL DISTENSION (GASEOUS) 09/12/2019 BALTAZAR, CELESTINO S MOTOR REBUILDER Ot M43.8X4 OTHER SPECIFIED DEFORMING DORSOPATHIES, 09/12/2019 BALTAZAR, CELESTINO S MOTOR REBUILDER Ot M50.323 OTHER CERVICAL DISC DEGENERATION AT C6-C 09/12/2019 BALTAZAR, CELESTINO S MOTOR REBUILDER Ot M54.41 LUMBAGO WITH SCIATICA, RIGHT SIDE 09/12/2019 BALTAZAR, CELESTINO S MOTOR REBUILDER Ot M54.42 LUMBAGO WITH SCIATICA, LEFT SIDE 09/13/2019 DONALDO PEREZ MD Ot R55 SYNCOPE AND COLLAPSE 09/13/2019 DONALDO PEREZ MD Ot G40.A09 ABSENCE EPILEPTIC SYNDROME, NOT INTRACTA 09/13/2019 DONALDO PEREZ MD Ot R55 SYNCOPE AND COLLAPSE 09/13/2019 DELMAN DO, MISAEL B Ot Z01.8 18 ENCOUNTER FOR OTHER PREPROCEDURAL EXAMIN 09/13/2019 BALTAZAR, CELESTINO S MOTOR REBUILDER Ot M25.871 OTHER SPECIFIED JOINT DISORDERS, RIGHT A 09/13/2019 BALTAZAR, CELESTINO S MOTOR REBUILDER Ot M65.871 OTHER SYNOVITIS AND TENOSYNOVITIS, RIGHT 09/13/2019 DELMAN DO, MISAEL B Ot R11.0 NAUSEA 09/13/2019 DELMAN DO, MISAEL B Ot R14.0 ABDOMINAL DISTENSION (GASEOUS) 09/13/2019 BALTAZAR, CELESTINO S MOTOR REBUILDER Ot M43.8X4 OTHER SPECIFIED DEFORMING DORSOPATHIES, 09/13/2019 BALTAZAR, CELESTINO S MOTOR REBUILDER Ot M50.323 OTHER CERVICAL DISC DEGENERATION AT C6-C 09/13/2019 BALTAZAR, CELESTINO S MOTOR REBUILDER Ot M54.41 LUMBAGO WITH SCIATICA, RIGHT SIDE 09/13/2019 BALTAZAR, CELESTINO S MOTOR REBUILDER Ot M54.42 LUMBAGO WITH SCIATICA, LEFT SIDE 09/16/2019 DONALDO PEREZ MD Ot R55 SYNCOPE AND COLLAPSE 09/16/2019 DONALDO PEREZ MD Ot G40.A09 ABSENCE EPILEPTIC SYNDROME, NOT INTRACTA 09/16/2019 DONALDO PEREZ MD Ot R55 SYNCOPE AND COLLAPSE 09/16/2019 DELMAN DO, MISAEL B Ot Z01.8 18 ENCOUNTER FOR OTHER PREPROCEDURAL EXAMIN 09/16/2019 BALTAZAR, CELESTINO S MOTOR REBUILDER Ot M25.871 OTHER SPECIFIED JOINT DISORDERS, RIGHT A 09/16/2019 BALTAZAR, CELESTINO S MOTOR REBUILDER Ot M65.871 OTHER SYNOVITIS AND TENOSYNOVITIS, RIGHT 09/16/2019 DELMAN DO, MISAEL B Ot R11.0 NAUSEA 09/16/2019 DELMAN DO, MISAEL B Ot R14.0 ABDOMINAL DISTENSION (GASEOUS) 09/16/2019 BALTAZAR, CELESTINO S MOTOR REBUILDER Ot M43.8X4 OTHER SPECIFIED DEFORMING DORSOPATHIES, 09/16/2019 BALTAZAR, CELESTINO S MOTOR REBUILDER Ot M50.323 OTHER CERVICAL DISC DEGENERATION AT C6-C 09/16/2019 BALTAZAR, CELESTINO S MOTOR REBUILDER Ot M54.41 LUMBAGO WITH SCIATICA, RIGHT SIDE 09/16/2019 BALTAZAR, CELESTINO S MOTOR REBUILDER Ot M54.42 LUMBAGO WITH SCIATICA, LEFT SIDE 09/16/2019 CHRIS GODFREY, DONALDO Brasher Ot R55 SYNCOPE AND COLLAPSE 09/16/2019 CHRIS GODFREY, DONALDO Brasher Ot G40.A09 ABSENCE EPILEPTIC SYNDROME, NOT INTRACTA 09/16/2019 CHRIS GODFREY, DONALDO Brasher Ot R55 SYNCOPE AND COLLAPSE 09/16/2019 DELNEW BEDFORD DO, MISAEL B Ot Z01.8 18 ENCOUNTER FOR OTHER PREPROCEDURAL EXAMIN 09/16/2019 BALTAZAR, CELESTINO S MOTOR REBUILDER Ot M25.871 OTHER SPECIFIED JOINT DISORDERS, RIGHT A 09/16/2019 BALTAZAR, CELESTINO S MOTOR REBUILDER Ot M65.871 OTHER SYNOVITIS AND TENOSYNOVITIS, RIGHT 09/16/2019 DELMAN DO, MISAEL B Ot R11.0 NAUSEA 09/16/2019 DELMAN DO, MISAEL B Ot R14.0 ABDOMINAL DISTENSION (GASEOUS) 09/16/2019 BALTAZAR, CELESTINO S MOTOR REBUILDER Ot M43.8X4 OTHER SPECIFIED DEFORMING DORSOPATHIES, 09/16/2019 BALTAZAR, CELESTINO S MOTOR REBUILDER Ot M50.323 OTHER CERVICAL DISC DEGENERATION AT C6-C 09/16/2019 BALTAZAR, CELESTINO S MOTOR REBUILDER Ot M54.41 LUMBAGO WITH SCIATICA, RIGHT SIDE 09/16/2019 BALTAZAR, CELESTINO S MOTOR REBUILDER Ot M54.42 LUMBAGO WITH SCIATICA, LEFT SIDE 09/16/2019 MARYVENSTINE ETHAN MARTINEZ Ot M10.9 GOUT, UNSPECIFIED 09/16/2019 ROVENSTINE ETHAN MARTINEZ Ot T63.441A TOXIC EFFECT OF [place], ACCIDENTA 09/16/2019 ROVENSTINE ETHAN MARTINEZ Ot Z88.5 ALLERGY STATUS TO NARCOTIC AGENT STATUS 09/16/2019 ROVENSTINE DOETHAN Ot Z88.8 ALLERGY STATUS TO OTH DRUG/MEDS/BIOL SUB 09/16/2019 DONALDO PEREZ MD Ot R55 SYNCOPE AND COLLAPSE 09/16/2019 DONALDO PEREZ MD Ot G40.A09 ABSENCE EPILEPTIC SYNDROME, NOT INTRACTA 09/16/2019 DONALDO PEREZ MD Ot R55 SYNCOPE AND COLLAPSE 09/16/2019 DELMAN DO, MISAEL B Ot Z01.8 18 ENCOUNTER FOR OTHER PREPROCEDURAL EXAMIN 09/16/2019 BALTAZAR, CELESTINO S MOTOR REBUILDER Ot M25.871 OTHER SPECIFIED JOINT DISORDERS, RIGHT A 09/16/2019 BALTAZAR, CELESTINO S MOTOR REBUILDER Ot M65.871 OTHER SYNOVITIS AND TENOSYNOVITIS, RIGHT 09/16/2019 DELMAN DO, MISAEL B Ot R11.0 NAUSEA 09/16/2019 DELMAN DO, MISAEL B Ot R14.0 ABDOMINAL DISTENSION (GASEOUS) 09/16/2019 BALTAZAR, CELESTINO S MOTOR REBUILDER Ot M43.8X4 OTHER SPECIFIED DEFORMING DORSOPATHIES, 09/16/2019 BALTAZAR, CELESTINO S MOTOR REBUILDER Ot M50.323 OTHER CERVICAL DISC DEGENERATION AT C6-C 09/16/2019 BALTAZAR, CELESTINO S MOTOR REBUILDER Ot M54.41 LUMBAGO WITH SCIATICA, RIGHT SIDE 09/16/2019 BALTAZAR, CELESTINO S MOTOR REBUILDER Ot M54.42 LUMBAGO WITH SCIATICA, LEFT SIDE 09/16/2019 CHRIS GODFREY, DONALDO Brasher Ot R55 SYNCOPE AND COLLAPSE 09/16/2019 DONALDO PEREZ MD Ot G40.A09 ABSENCE EPILEPTIC SYNDROME, NOT INTRACTA 09/16/2019 DONALDO PEREZ MD Ot R55 SYNCOPE AND COLLAPSE 09/16/2019 DELMAN DO, MISAEL B Ot Z01.8 18 ENCOUNTER FOR OTHER PREPROCEDURAL EXAMIN 09/16/2019 BALTAZAR, CELESTINO S MOTOR REBUILDER Ot M25.871 OTHER SPECIFIED JOINT DISORDERS, RIGHT A 09/16/2019 BALTAZAR, CELESTINO S MOTOR REBUILDER Ot M65.871 OTHER SYNOVITIS AND TENOSYNOVITIS, RIGHT 09/16/2019 DELMAN DO, MISAEL B Ot R11.0 NAUSEA 09/16/2019 DELMAN DO, MISAEL B Ot R14.0 ABDOMINAL DISTENSION (GASEOUS) 09/16/2019 BALTAZAR CELESTINO S MOTOR REBUILDER Ot M43.8X4 OTHER SPECIFIED DEFORMING DORSOPATHIES, 09/16/2019 BALTAZAR, CELESTINO S MOTOR REBUILDER Ot M50.323 OTHER CERVICAL DISC DEGENERATION AT C6-C 09/16/2019 BALTAZAR, CELESTINO S MOTOR REBUILDER Ot M54.41 LUMBAGO WITH SCIATICA, RIGHT SIDE 09/16/2019 BALTAZAR, CELESTINO S MOTOR REBUILDER Ot M54.42 LUMBAGO WITH SCIATICA, LEFT SIDE 09/18/2019 ROVENSTINE DO, ETHAN L Ot M10.9 GOUT, UNSPECIFIED 09/18/2019 ROVENSTINE DO, ETHAN L Ot T63.441A TOXIC EFFECT OF [place], ACCIDENTA 09/18/2019 ROVENSTINE DO, ETHAN L Ot Z88.5 ALLERGY STATUS TO NARCOTIC AGENT STATUS 09/18/2019 ROVENSTINE DO, ETHAN Gabriel Ot Z88.8 ALLERGY STATUS TO OTH DRUG/MEDS/BIOL SUB 09/21/2019 CHRIS GODFREY, DONALDO Brasher Ot R55 SYNCOPE AND COLLAPSE 09/21/2019 DONALDO PEREZ MD Ot G40.A09 ABSENCE EPILEPTIC SYNDROME, NOT INTRACTA 09/21/2019 DONALDO PEREZ MD Ot R55 SYNCOPE AND COLLAPSE 09/21/2019 DELMAN DO, MISAEL B Ot Z01.8 18 ENCOUNTER FOR OTHER PREPROCEDURAL EXAMIN 09/21/2019 BALTAZAR CELESTINO S MOTOR REBUILDER Ot M25.871 OTHER SPECIFIED JOINT DISORDERS, RIGHT A 09/21/2019 BALTAZAR CELESTINO S MOTOR REBUILDER Ot M65.871 OTHER SYNOVITIS AND TENOSYNOVITIS, RIGHT 09/21/2019 DELMAN DO, MISAEL B Ot R11.0 NAUSEA 09/21/2019 DELMAN DO, MISAEL B Ot R14.0 ABDOMINAL DISTENSION (GASEOUS) 09/21/2019 BALTAZAR, CELESTINO S MOTOR REBUILDER Ot M43.8X4 OTHER SPECIFIED DEFORMING DORSOPATHIES, 09/21/2019 BALTAZAR, CELESTINO S MOTOR REBUILDER Ot M50.323 OTHER CERVICAL DISC DEGENERATION AT C6-C 09/21/2019 BALTAZAR CELESTINO S MOTOR REBUILDER Ot M54.41 LUMBAGO WITH SCIATICA, RIGHT SIDE 09/21/2019 BALTAZAR CELESTINO S MOTOR REBUILDER Ot M54.42 LUMBAGO WITH SCIATICA, LEFT SIDE [...] 6.8 G/DL 6.0-8.5 ALBUMIN 3.9 G/DL 2.9-4.4 DESTQ-5-TTXBSNNH 0.3 G/DL 0.0-0.4 WOJYK-4-VQSMAFJD 0.6 G/DL 0.4-1.0 BETA GLOBULIN 1.0 G/DL 0.7-1.3 GAMMA GLOBULIN 1.0 G/DL 0.4-1.8 M-SPIKE NOT OBSERVED G/DL NOT OBSERVED GLOBULIN, TOTAL 2.9 G/DL 2.2-3.9 A/G RATIO 1.3 0.7-1.7 PLEASE NOTE: PROTEIN ELECTROPHORESIS SCAN WILL FOLLOW VIA COMPUTER, MAIL, OR.brCOURIER DELIVERY. PDF . Protein Electro.,S - 12/24/17 15:50 Protein, Total, Serum 6.8 g/dL 6.0-8.5 Albumin 3.9 g/dL 2.9-4.4 Uhvqo-5-Tbqqffxf 0.3 g/dL 0.0-0.4 Ajtol-6-Ncifnubq 0.6 g/dL 0.4-1.0 Beta Globulin 1.0 g/dL [...] 30-150 ALBUMIN, U 31.5 % NOT ESTAB. HTWYX-2-VNQVIXYT, U 14.0 % NOT ESTAB. TGJJM-4-JUDIEAYF, U 19.4 % NOT ESTAB. BETA GLOBULIN, U 7.4 % NOT ESTAB. GAMMA GLOBULIN, U 27.7 % NOT ESTAB. M-SPIKE, % NOT OBSERVED % NOT OBSERVED PDF . Heavy Metals Profile II, Urine - 8 11:12 ARSENIC (TOTAL),U NONE DETECTED UG/L 0-5 0 ARSENIC(INORGANIC),U NONE DETECTED UG/L 0-19 CREATININE(MANAGER AEROSPACE),U 0.64 G/L 0.30-3.00 LEAD, URINE NONE DETECTED UG/L 0-49 MERCURY, URINE NONE DETECTED UG/L 0-19 CADMIUM, URINE NONE DETECTED UG/L NONE D ETECTED Protein Electro, 24-Hour Urine - 8 11:12 Protein,Total,Urine 4.4 mg/dL Not Estab. Prot,24hr calculated 55 mg/24 hr 30-150 Albumin, U 31.5 % NOT ESTAB. Qgpgb-0-Usytklbv, U 14.0 % NOT ESTAB. Iddrc-6-Hcpnwvid, U 19.4 % NOT ESTAB. Beta Globulin, U 7.4 % NOT ESTAB. Gamma Globulin, U 27.7 % NOT ESTAB. M-Mehran, % Not Observed % Not Observed Please note: Comment PDF . Heavy Metals Profile II, Urine - 8 11:12 Creatinine(Chain Saw Operator),U 0.64 g/L 0.30-3.00 Arsenic (Total),U None Detected [...] Status Pt. Type Provider Facility Loc./Unit Complaint [id number] 2018 10:51:00 2018 23:59: 00 DIS Outpatient CAMILA PIERCE [id number] 12/26/2017 10:59:00 12/26/2017 23:59: 00 DIS Outpatient LUIZ KALLI [id number] 12/24/2017 15:40:00 12/24/2017 23:59: 00 DIS Outpatient LUIZ KALLI [id number] 12/24/2017 14:44:00 12/24/2017 23:59: 00 DIS Outpatient LUIZ KALLI [id number] 09/16/2019 16:30:00 09/16/2019 23:59: 59 CLS Outpatient LORNA RUTH [facility] [id number] 04/22/2019 08:45:00 Document Registration [id number] 03/02/2019 14:00:00 Document Registration [id number] 09/26/2017 09:20:00 Document Registration [id number] 07/26/2017 09:20:00 Document Registration [id number] 09/16/2019 16:52:00 18:07:00 DIS Emergency ROVENSTETHAN WELSH DO [facility] ER FS BEE STING ON MO UTH [id number] 09/12/2019 23:16:00 10:46:00 DIS Inpatient YRIS GODFREY, GABI Muniz [facility] 4TH ACUTE RENAL FAILURE,DEHYDRATION [id number] 04/09/2019 14:34:00 23:59:59 CLS Outpatient CELESTINO LEDESMA [employer] [facility] RAD FS M54.41 M54.42 [id number] 09/09/2018 07:12:00 23:59:59 CLS Outpatient MISAEL SAMUELS DO [facility] CARD NAUSEA,ABD FULLNESS [id number] 08/20/2018 14:07:00 16:54:00 DIS Emergency RENETTA NOGUEIRA [employer] RE[employer] [facility] ER HERNIA [id number] 08/19/2018 14:56:00 23:59:59 CLS Outpatient CELESTINO LEDESMA APRN [facility] RAD FS M25.571 [id number] 04/09/2018 08:59:00 14:30:00 DIS Outpatient ARVIND MISAEL MARTINEZ B [facility] SDC UMBILICAL HERNIA [id number] 04/08/2018 05:35:00 09:38:00 DIS Outpatient DEEPALAYO MARTINEZ MISAEL B [facility] PREOP UMBILICAL HERNIA [id number] 04/07/2018 09:13:00 12:21:00 DIS Outpatient ARVIND DO MISAEL B [facility] ENDO ABD PAIN [id number] 04/04/2018 10:59:00 23:59:59 CLS Outpatient ARVIND DO MISAEL B [facility] PREOP COLONOSCOPY/EGD [id number] 04/01/2018 14:30:00 10:49:00 DIS Inpatient ARVIND MISAEL MARTINEZ B [facility] 4TH ACUTE DIVERTICULITIS [id number] 01/28/2018 12:05:00 23:59:59 CLS Outpatient DONALDO PEREZ MD [facility] RAD ABSENCE ATTACK [id number] 07/30/2017 10:54:00 23:59:59 CLS Outpatient DONALDO PEREZ MD [facility] RAD NEAR SYNCOPE [id number] 12/27/2017 19:10:00 Document Registration [id number] 12/27/2017 18:12:00 Document Registration [id number] 12/31/2017 16:26:00 Document Registration [id number] 12/27/2017 20:11:00 Document Registration
== END 2019-09-14 10:21 | disposition home or self-care (01) ==
LOC: EDUNIT# 21:56 → ER FS 21:59 → 4TH 22:00 → UNDOADMIN 23:16 → 4TH 23:16 → UNDODISIN 09-14 10:46
PROVIDERS: ADMIT Internal Medicine; ATTEND Internal Medicine
DX: N17.9 Acute kidney failure, unspecified (principal); E86.0 Dehydration; T67.5XXA Heat exhaustion, unspecified, initial encounter; M10.9 Gout, unspecified; G62.9 Polyneuropathy, unspecified; F17.210 Nicotine dependence, cigarettes, uncomplicated; Z87.19 Personal history of other diseases of the digestive system; Z79.899 Other long term (current) drug therapy; Z88.8 Allergy status to other drugs, medicaments and biological substances; Z88.5 Allergy status to narcotic agent
CPT/HCPCS: 36415; 71045; 76770; 80053 ×3; 81000 ×2; 82550; 84484; 85025 ×2; 87088; 93005; 96361; 96374; 99284; G0378

== ENCOUNTER 2019-09-16 16:51 | Emergency (ER) | payer BC, MEDICARE ==
[~2019-09-16] VITALS: Ht 172 cm; Wt 85.0 kg
[2019-09-16] MEDS ORDERED: EPINEPHrine INJECTION 1 MG/ML AMP ONE (16:54)
[2019-09-16] MEDS ORDERED: diphenhydrAMINE 25 MG TAB (BENADRYL) PO ONE ×2 (16:56→17:00)
[2019-09-16] MEDS ORDERED: FAMOTIDINE 20 MG (PEPCID) TABLET ONE (16:56)
[2019-09-16] MEDS ORDERED: methylPREDNISolone 125 MG (Solu-MEDROL) VIAL ONE (16:56)
[2019-09-16] MEDS ORDERED: methylPREDNISolone 125 MG (Solu-MEDROL) VIAL IM ONE (17:00)
[2019-09-16] MEDS ORDERED: FAMOTIDINE 20 MG (PEPCID) TABLET PO ONE (17:00)
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
[2019-09-16 17:10] VITALS: BP 134/90
[2019-09-16] MEDS ORDERED: PRD50T PO (18:03)
[2019-09-16] MEDS ORDERED: FAMO-119 PO (18:03)
--- OUTSIDE RECORDS SUMMARY | 2019-09-16 19:34 | XMS REPORT | Continuity of Care Document ---
Author Organization Unknown Address Unknown Phone Unavailable Allergies Active Description Code Type Severity Reaction Onset Reported/Identified Relationship to Patient Clinical Status Yes citalopram [id number] Drug Allerg y Unknown N/A 04/01/2018 Yes morphine [id number] Drug Allergy Unknown RASH 04/07/2018 Medications There is no data. 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 04/08/2018 TRISH SAMUELS DOIC [...] MARTINEZ MISAEL B Ot Z79.8 99 OTHER RESIDENTIAL (CURRENT) DRUG THERAPY 04/09/2018 ARVIND MARTINEZ MISAEL [...] DO, MISAEL B Ot Z79.8 99 OTHER RESIDENTIAL (CURRENT) DRUG THERAPY 04/10/2018 DELMAN DO, MISAEL [...] DO, MISAEL B Ot 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 04/12/2018 DELMAN DO, MISAEL [...] MARTINEZ MISAEL B Ot Z79.8 99 OTHER RESIDENTIAL (CURRENT) DRUG THERAPY 04/13/2018 ARVIND MARTINEZ MISAEL B Ot Z87.1 9 PERSONAL HISTORY OF OTHER DISEASES OF 04/14/2018 ARVIND MARTINEZ MISAEL B Ot F17.2 10 NICOTINE DEPENDENCE, CIGARETTES, UNCOMPL 04/14/2018 ARVIND MARTINEZ MIASEL B Ot K21.0 GASTRO-ESOPHAGEAL REFLUX DISEASE WITH ES 04/14/2018 ARVIND MARTINEZ MISAEL B Ot K29.5 0 UNSPECIFIED CHRONIC GASTRITIS WITHOUT BL 04/14/2018 ARVIND MARTINEZ MISAEL B Ot K31.8 9 OTHER DISEASES OF STOMACH AND DUODENUM 04/14/2018 TRISH SAMUELS DOIC B Ot K44.9 DIAPHRAGMATIC HERNIA WITHOUT OBSTRUCTION 04/14/2018 ARVIND MARTINEZ MISAEL B Ot K52.9 NONINFECTIVE GASTROENTERITIS AND COLITIS 04/14/2018 AVRIND MARTINEZ MISAEL B Ot K57.3 0 DVRTCLOS OF LG INT W/O PERFORATION OR AB 04/14/2018 ARVIND MARTINEZ MISAEL B Ot K64.8 OTHER HEMORRHOIDS 04/14/2018 ARVIND MARTINEZ MISAEL B Ot M79.7 FIBROMYALGIA 04/14/2018 ARVIND MARTINEZ MISAEL B Ot Z12.1 1 ENCOUNTER FOR SCREENING FOR MALIGNANT NE 04/14/2018 ARVIND MARTINEZ MISAEL B Ot Z79.8 99 OTHER RESIDENTIAL (CURRENT) DRUG THERAPY 04/14/2018 ARVIND MARTINEZ, MISAEL [...] MISAEL SAMUELS DO Ot Z79.8 99 OTHER RESIDENTIAL (CURRENT) DRUG THERAPY 04/15/2018 TRISH SAMUELS DOIC [...] SAMUELS DO B Ot Z79.8 99 OTHER RESIDENTIAL (CURRENT) DRUG THERAPY 04/17/2018 TRISH SAMUELS DOIC [...] SAMUELS DO B Ot 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 04/17/2018 TRISH SAMUELS DOIC B Ot Z87.1 9 PERSONAL HISTORY OF OTHER DISEASES OF TH 08/20/2018 CELESTINO LEDESMA BALANCE RECESSER Ot M25.871 OTHER SPECIFIED JOINT DISORDERS, RIGHT A 08/20/2018 CELESTINO LEDESMA BALANCE RECESSER Ot M65.871 OTHER SYNOVITIS AND TENOSYNOVITIS, RIGHT [...] AW 08/25/2018 RENETTA NOGUEIRA APRN Ot Y92.59 [facility] [address] 08/25/2018 RENETTA NOGUEIRA APRN [...] OTHER SPECIFIED POSTPROCEDURAL STATES 09/04/2018 CELESTINO LEDESMA BALANCE RECESSER Ot M25.871 OTHER SPECIFIED JOINT DISORDERS, RIGHT A 09/04/2018 CELESTINO LEDESMA BALANCE RECESSER Ot M65.871 OTHER SYNOVITIS AND TENOSYNOVITIS, RIGHT 04/29/2019 CELESTINO LEDESMA BALANCE RECESSER Ot M43.8X4 OTHER SPECIFIED DEFORMING DORSOPATHIES, 04/29/2019 CELESTINO LEDESMA BALANCE RECESSER Ot M50.323 OTHER CERVICAL DISC DEGENERATION AT C6-C 04/29/2019 CELESTINO LEDESMA BALANCE RECESSER Ot M54.41 LUMBAGO WITH SCIATICA, RIGHT SIDE 04/29/2019 BALTAZAR, CELESTINO S BALANCE RECESSER Ot M54.42 LUMBAGO WITH SCIATICA, LEFT SIDE 09/12/2019 DONALDO PEREZ MD Ot R55 SYNCOPE AND COLLAPSE 09/12/2019 DONALDO PEREZ MD Ot G40.A09 ABSENCE EPILEPTIC SYNDROME, NOT INTRACTA 09/12/2019 DONALDO PEREZ MD Ot R55 SYNCOPE AND COLLAPSE 09/12/2019 DELMAN DO, MISAEL B Ot Z01.8 18 ENCOUNTER FOR OTHER PREPROCEDURAL EXAMIN 09/12/2019 BALTAZAR, CELESTINO S BALANCE RECESSER Ot M25.871 OTHER SPECIFIED JOINT DISORDERS, RIGHT A 09/12/2019 BALTAZAR, CELESTINO S BALANCE RECESSER Ot M65.871 OTHER SYNOVITIS AND TENOSYNOVITIS, RIGHT 09/12/2019 DELMAN DO, MISAEL B Ot R11.0 NAUSEA 09/12/2019 DELMAN DO, MISAEL B Ot R14.0 ABDOMINAL DISTENSION (GASEOUS) 09/12/2019 BALTAZAR, CELESTINO S BALANCE RECESSER Ot M43.8X4 OTHER SPECIFIED DEFORMING DORSOPATHIES, 09/12/2019 BALTAZAR, CELESTINO S BALANCE RECESSER Ot M50.323 OTHER CERVICAL DISC DEGENERATION AT C6-C 09/12/2019 BALTAZAR, CELESTINO S BALANCE RECESSER Ot M54.41 LUMBAGO WITH SCIATICA, RIGHT SIDE 09/12/2019 BALTAZAR, CELESTINO S BALANCE RECESSER Ot M54.42 LUMBAGO WITH SCIATICA, LEFT SIDE 09/12/2019 DONALDO PEREZ MD Ot R55 SYNCOPE AND COLLAPSE 09/12/2019 DONALDO PEREZ MD Ot G40.A09 ABSENCE EPILEPTIC SYNDROME, NOT INTRACTA 09/12/2019 DONALDO PEREZ MD Ot R55 SYNCOPE AND COLLAPSE 09/12/2019 DELMAN DO, MISAEL B Ot Z01.8 18 ENCOUNTER FOR OTHER PREPROCEDURAL EXAMIN 09/12/2019 BALTAZAR, CELESTINO S BALANCE RECESSER Ot M25.871 OTHER SPECIFIED JOINT DISORDERS, RIGHT A 09/12/2019 BALTAZAR, CELESTINO S BALANCE RECESSER Ot M65.871 OTHER SYNOVITIS AND TENOSYNOVITIS, RIGHT 09/12/2019 DELMAN DO, MISAEL B Ot R11.0 NAUSEA 09/12/2019 DELMAN DO, MISAEL B Ot R14.0 ABDOMINAL DISTENSION (GASEOUS) 09/12/2019 BALTAZAR, CELESTINO S BALANCE RECESSER Ot M43.8X4 OTHER SPECIFIED DEFORMING DORSOPATHIES, 09/12/2019 BALTAZAR, CELESTINO S BALANCE RECESSER Ot M50.323 OTHER CERVICAL DISC DEGENERATION AT C6-C 09/12/2019 BALTAZAR, CELESTINO S BALANCE RECESSER Ot M54.41 LUMBAGO WITH SCIATICA, RIGHT SIDE 09/12/2019 BALTAZAR, CELESTINO S BALANCE RECESSER Ot M54.42 LUMBAGO WITH SCIATICA, LEFT SIDE 09/12/2019 DONALDO PEREZ MD Ot R55 SYNCOPE AND COLLAPSE 09/12/2019 DONALDO PEREZ MD Ot G40.A09 ABSENCE EPILEPTIC SYNDROME, NOT INTRACTA 09/12/2019 DONALDO PEREZ MD Ot R55 SYNCOPE AND COLLAPSE 09/12/2019 DELMAN DO, MISAEL B Ot Z01.8 18 ENCOUNTER FOR OTHER PREPROCEDURAL EXAMIN 09/12/2019 BALTAZAR, CELESTINO S BALANCE RECESSER Ot M25.871 OTHER SPECIFIED JOINT DISORDERS, RIGHT A 09/12/2019 BALTAZAR, CELESTINO S BALANCE RECESSER Ot M65.871 OTHER SYNOVITIS AND TENOSYNOVITIS, RIGHT 09/12/2019 DELMAN DO, MISAEL B Ot R11.0 NAUSEA 09/12/2019 DELMAN DO, MISAEL B Ot R14.0 ABDOMINAL DISTENSION (GASEOUS) 09/12/2019 BALTAZAR, CELESTINO S BALANCE RECESSER Ot M43.8X4 OTHER SPECIFIED DEFORMING DORSOPATHIES, 09/12/2019 BALTAZAR, CELESTINO S BALANCE RECESSER Ot M50.323 OTHER CERVICAL DISC DEGENERATION AT C6-C 09/12/2019 BALTAZAR, CELESTINO S BALANCE RECESSER Ot M54.41 LUMBAGO WITH SCIATICA, RIGHT SIDE 09/12/2019 BALTAZAR, CELESTINO S BALANCE RECESSER Ot M54.42 LUMBAGO WITH SCIATICA, LEFT SIDE 09/12/2019 DONALDO PEREZ MD Ot R55 SYNCOPE AND COLLAPSE 09/12/2019 DONALDO PEREZ MD Ot G40.A09 ABSENCE EPILEPTIC SYNDROME, NOT INTRACTA 09/12/2019 DONALDO PEREZ MD Ot R55 SYNCOPE AND COLLAPSE 09/12/2019 DELMAN DO, MISAEL B Ot Z01.8 18 ENCOUNTER FOR OTHER PREPROCEDURAL EXAMIN 09/12/2019 BALTAZAR, CELESTINO S BALANCE RECESSER Ot M25.871 OTHER SPECIFIED JOINT DISORDERS, RIGHT A 09/12/2019 BALTAZAR, CELESTINO S BALANCE RECESSER Ot M65.871 OTHER SYNOVITIS AND TENOSYNOVITIS, RIGHT 09/12/2019 DELMAN DO, MISAEL B Ot R11.0 NAUSEA 09/12/2019 DELMAN DO, MISAEL B Ot R14.0 ABDOMINAL DISTENSION (GASEOUS) 09/12/2019 BALTAZAR, CELESTINO S BALANCE RECESSER Ot M43.8X4 OTHER SPECIFIED DEFORMING DORSOPATHIES, 09/12/2019 BALTAZAR, CELESTINO S BALANCE RECESSER Ot M50.323 OTHER CERVICAL DISC DEGENERATION AT C6-C 09/12/2019 BALTAZAR, CELESTINO S BALANCE RECESSER Ot M54.41 LUMBAGO WITH SCIATICA, RIGHT SIDE 09/12/2019 BALTAZAR, CELESTINO S BALANCE RECESSER Ot M54.42 LUMBAGO WITH SCIATICA, LEFT SIDE 09/12/2019 DONALDO PEREZ MD Ot R55 SYNCOPE AND COLLAPSE 09/12/2019 DONALDO PEREZ MD Ot G40.A09 ABSENCE EPILEPTIC SYNDROME, NOT INTRACTA 09/12/2019 DONALDO PEREZ MD Ot R55 SYNCOPE AND COLLAPSE 09/12/2019 DELMAN DO, MISAEL B Ot Z01.8 18 ENCOUNTER FOR OTHER PREPROCEDURAL EXAMIN 09/12/2019 BALTAZAR, CELESTINO S BALANCE RECESSER Ot M25.871 OTHER SPECIFIED JOINT DISORDERS, RIGHT A 09/12/2019 BALTAZAR, CELESTINO S BALANCE RECESSER Ot M65.871 OTHER SYNOVITIS AND TENOSYNOVITIS, RIGHT 09/12/2019 DELMAN DO, MISAEL B Ot R11.0 NAUSEA 09/12/2019 DELMAN DO, MISAEL B Ot R14.0 ABDOMINAL DISTENSION (GASEOUS) 09/12/2019 BALTAZAR, CELESTINO S BALANCE RECESSER Ot M43.8X4 OTHER SPECIFIED DEFORMING DORSOPATHIES, 09/12/2019 BALTAZAR, CELESTINO S BALANCE RECESSER Ot M50.323 OTHER CERVICAL DISC DEGENERATION AT C6-C 09/12/2019 BALTAZAR, CELESTINO S BALANCE RECESSER Ot M54.41 LUMBAGO WITH SCIATICA, RIGHT SIDE 09/12/2019 BALTAZAR, CELESTINO S BALANCE RECESSER Ot M54.42 LUMBAGO WITH SCIATICA, LEFT SIDE 09/12/2019 DONALDO PEREZ MD Ot R55 SYNCOPE AND COLLAPSE 09/12/2019 DONALDO PEREZ MD Ot G40.A09 ABSENCE EPILEPTIC SYNDROME, NOT INTRACTA 09/12/2019 DONALDO PEREZ MD Ot R55 SYNCOPE AND COLLAPSE 09/12/2019 DELMAN DO, MISAEL B Ot Z01.8 18 ENCOUNTER FOR OTHER PREPROCEDURAL EXAMIN 09/12/2019 BALTAZAR, CELESTINO S BALANCE RECESSER Ot M25.871 OTHER SPECIFIED JOINT DISORDERS, RIGHT A 09/12/2019 BALTAZAR, CELESTINO S BALANCE RECESSER Ot M65.871 OTHER SYNOVITIS AND TENOSYNOVITIS, RIGHT 09/12/2019 DELMAN DO, MISAEL B Ot R11.0 NAUSEA 09/12/2019 DELMAN DO, MISAEL B Ot R14.0 ABDOMINAL DISTENSION (GASEOUS) 09/12/2019 BALTAZAR, CELESTINO S BALANCE RECESSER Ot M43.8X4 OTHER SPECIFIED DEFORMING DORSOPATHIES, 09/12/2019 BALTAZAR, CELESTINO S BALANCE RECESSER Ot M50.323 OTHER CERVICAL DISC DEGENERATION AT C6-C 09/12/2019 BALTAZAR, CELESTINO S BALANCE RECESSER Ot M54.41 LUMBAGO WITH SCIATICA, RIGHT SIDE 09/12/2019 BALTAZAR, CELESTINO S BALANCE RECESSER Ot M54.42 LUMBAGO WITH SCIATICA, LEFT SIDE 09/12/2019 DONALDO PEREZ MD Ot R55 SYNCOPE AND COLLAPSE 09/12/2019 DONALDO PEREZ MD Ot G40.A09 ABSENCE EPILEPTIC SYNDROME, NOT INTRACTA 09/12/2019 DONALDO PEREZ MD Ot R55 SYNCOPE AND COLLAPSE 09/12/2019 DELMAN DO, MISAEL B Ot Z01.8 18 ENCOUNTER FOR OTHER PREPROCEDURAL EXAMIN 09/12/2019 BALTAZAR, CELESTINO S BALANCE RECESSER Ot M25.871 OTHER SPECIFIED JOINT DISORDERS, RIGHT A 09/12/2019 BALTAZAR, CELESTINO S BALANCE RECESSER Ot M65.871 OTHER SYNOVITIS AND TENOSYNOVITIS, RIGHT 09/12/2019 DELMAN DO, MSIAEL B Ot R11.0 NAUSEA 09/12/2019 DELMAN DO, MISAEL B Ot R14.0 ABDOMINAL DISTENSION (GASEOUS) 09/12/2019 BALTAZAR, CELESTINO S BALANCE RECESSER Ot M43.8X4 OTHER SPECIFIED DEFORMING DORSOPATHIES, 09/12/2019 BALTAZAR, CELESTINO S BALANCE RECESSER Ot M50.323 OTHER CERVICAL DISC DEGENERATION AT C6-C 09/12/2019 BALTAZAR, CELESTINO S BALANCE RECESSER Ot M54.41 LUMBAGO WITH SCIATICA, RIGHT SIDE 09/12/2019 BALTAZAR, CELESTINO S BALANCE RECESSER Ot M54.42 LUMBAGO WITH SCIATICA, LEFT SIDE 09/13/2019 DONALDO PEREZ MD Ot R55 SYNCOPE AND COLLAPSE 09/13/2019 DONALDO PEREZ MD Ot G40.A09 ABSENCE EPILEPTIC SYNDROME, NOT INTRACTA 09/13/2019 DONALDO PEREZ MD Ot R55 SYNCOPE AND COLLAPSE 09/13/2019 DELMAN DO, MISAEL B Ot Z01.8 18 ENCOUNTER FOR OTHER PREPROCEDURAL EXAMIN 09/13/2019 BALTAZAR, CELESTINO S BALANCE RECESSER Ot M25.871 OTHER SPECIFIED JOINT DISORDERS, RIGHT A 09/13/2019 BALTAZAR, CELESTINO S BALANCE RECESSER Ot M65.871 OTHER SYNOVITIS AND TENOSYNOVITIS, RIGHT 09/13/2019 DELMAN DO, MISAEL B Ot R11.0 NAUSEA 09/13/2019 DELMAN DO, MISAEL B Ot R14.0 ABDOMINAL DISTENSION (GASEOUS) 09/13/2019 BALTAZAR, CELESTINO S BALANCE RECESSER Ot M43.8X4 OTHER SPECIFIED DEFORMING DORSOPATHIES, 09/13/2019 BALTAZAR, CELESTINO S BALANCE RECESSER Ot M50.323 OTHER CERVICAL DISC DEGENERATION AT C6-C 09/13/2019 BALTAZAR, CELESTINO S BALANCE RECESSER Ot M54.41 LUMBAGO WITH SCIATICA, RIGHT SIDE 09/13/2019 BALTAZAR, CELESTINO S BALANCE RECESSER Ot M54.42 LUMBAGO WITH SCIATICA, LEFT SIDE 09/16/2019 DONALDO PEREZ MD Ot R55 SYNCOPE AND COLLAPSE 09/16/2019 DONALDO PEREZ MD Ot G40.A09 ABSENCE EPILEPTIC SYNDROME, NOT INTRACTA 09/16/2019 DONALDO PEREZ MD Ot R55 SYNCOPE AND COLLAPSE 09/16/2019 DELMAN DO, MISAEL B Ot Z01.8 18 ENCOUNTER FOR OTHER PREPROCEDURAL EXAMIN 09/16/2019 BALTAZAR, CELESTINO S BALANCE RECESSER Ot M25.871 OTHER SPECIFIED JOINT DISORDERS, RIGHT A 09/16/2019 BALTAZAR, CELESTINO S BALANCE RECESSER Ot M65.871 OTHER SYNOVITIS AND TENOSYNOVITIS, RIGHT 09/16/2019 DELMAN DO, MISAEL B Ot R11.0 NAUSEA 09/16/2019 DELMAN DO, MISAEL B Ot R14.0 ABDOMINAL DISTENSION (GASEOUS) 09/16/2019 BALTAZAR, CELESTINO S BALANCE RECESSER Ot M43.8X4 OTHER SPECIFIED DEFORMING DORSOPATHIES, 09/16/2019 BALTAZAR, CELESTINO S BALANCE RECESSER Ot M50.323 OTHER CERVICAL DISC DEGENERATION AT C6-C 09/16/2019 BALTAZAR, CELESTINO S BALANCE RECESSER Ot M54.41 LUMBAGO WITH SCIATICA, RIGHT SIDE 09/16/2019 BALTAZAR, CELESTINO S BALANCE RECESSER Ot M54.42 LUMBAGO WITH SCIATICA, LEFT SIDE 09/16/2019 DONALDO PEREZ MD Ot R55 SYNCOPE AND COLLAPSE 09/16/2019 DONALDO PEREZ MD Ot G40.A09 ABSENCE EPILEPTIC SYNDROME, NOT INTRACTA 09/16/2019 DONALDO PEREZ MD Ot R55 SYNCOPE AND COLLAPSE 09/16/2019 DEEPAMAN DO, MISAEL B Ot Z01.8 18 ENCOUNTER FOR OTHER PREPROCEDURAL EXAMIN 09/16/2019 BALTAZAR, CELESTINO S BALANCE RECESSER Ot M25.871 OTHER SPECIFIED JOINT DISORDERS, RIGHT A 09/16/2019 BALTAZAR, CELESTINO S BALANCE RECESSER Ot M65.871 OTHER SYNOVITIS AND TENOSYNOVITIS, RIGHT 09/16/2019 DEEPAMAN DO, MISAEL B Ot R11.0 NAUSEA 09/16/2019 DEEPAMAN DO, MISAEL B Ot R14.0 ABDOMINAL DISTENSION (GASEOUS) 09/16/2019 BALTAZAR, CELESTINO S BALANCE RECESSER Ot M43.8X4 OTHER SPECIFIED DEFORMING DORSOPATHIES, 09/16/2019 BALTAZAR, CELESTINO S BALANCE RECESSER Ot M50.323 OTHER CERVICAL DISC DEGENERATION AT C6-C 09/16/2019 BALTAZAR, CELESTINO S BALANCE RECESSER Ot M54.41 LUMBAGO WITH SCIATICA, RIGHT SIDE 09/16/2019 BALTAZAR, CELESTINO S BALANCE RECESSER Ot M54.42 LUMBAGO WITH SCIATICA, LEFT SIDE 09/16/2019 DONALDO PEREZ MD Ot R55 SYNCOPE AND COLLAPSE 09/16/2019 DONALDO PEREZ MD Ot G40.A09 ABSENCE EPILEPTIC SYNDROME, NOT INTRACTA 09/16/2019 DONALDO PEREZ MD Ot R55 SYNCOPE AND COLLAPSE 09/16/2019 ARVIND DO, MISAEL B Ot Z01.8 18 ENCOUNTER FOR OTHER PREPROCEDURAL EXAMIN 09/16/2019 BALTAZAR, CELESTINO S BALANCE RECESSER Ot M25.871 OTHER SPECIFIED JOINT DISORDERS, RIGHT A 09/16/2019 BALTAZAR, CELESTINO S BALANCE RECESSER Ot M65.871 OTHER SYNOVITIS AND TENOSYNOVITIS, RIGHT 09/16/2019 DELMAN DO, MISAEL B Ot R11.0 NAUSEA 09/16/2019 DELMAN DO, MISAEL B Ot R14.0 ABDOMINAL DISTENSION (GASEOUS) 09/16/2019 BALTAZAR, CELESTINO S BALANCE RECESSER Ot M43.8X4 OTHER SPECIFIED DEFORMING DORSOPATHIES, 09/16/2019 BALTAZAR, CELESTINO S BALANCE RECESSER Ot M50.323 OTHER CERVICAL DISC DEGENERATION AT C6-C 09/16/2019 BALTAZAR, CELESTINO S BALANCE RECESSER Ot M54.41 LUMBAGO WITH SCIATICA, RIGHT SIDE 09/16/2019 BALTAZAR, CELESTINO S BALANCE RECESSER Ot M54.42 LUMBAGO WITH SCIATICA, LEFT SIDE 09/16/2019 CHRIS GODFREY, DONALDO Brasher Ot R55 SYNCOPE AND COLLAPSE 09/16/2019 CHRIS GODFREY, DONALDO Brasher Ot G40.A09 ABSENCE EPILEPTIC SYNDROME, NOT INTRACTA 09/16/2019 DONALDO PEREZ MD Ot R55 SYNCOPE AND COLLAPSE 09/16/2019 DELMAN DO, MISAEL B Ot Z01.8 18 ENCOUNTER FOR OTHER PREPROCEDURAL EXAMIN 09/16/2019 BALTAZAR, CELESTINO S BALANCE RECESSER Ot M25.871 OTHER SPECIFIED JOINT DISORDERS, RIGHT A 09/16/2019 BALTAZAR, CELESTINO S BALANCE RECESSER Ot M65.871 OTHER SYNOVITIS AND TENOSYNOVITIS, RIGHT 09/16/2019 DELMAN DO, MISAEL B Ot R11.0 NAUSEA 09/16/2019 DELMAN DO, MISAEL B Ot R14.0 ABDOMINAL DISTENSION (GASEOUS) 09/16/2019 BALTAZAR, CELESTINO S BALANCE RECESSER Ot M43.8X4 OTHER SPECIFIED DEFORMING DORSOPATHIES, 09/16/2019 BALTAZAR, CELESTINO S BALANCE RECESSER Ot M50.323 OTHER CERVICAL DISC DEGENERATION AT C6-C 09/16/2019 BALTAZAR, CELESTINO S BALANCE RECESSER Ot M54.41 LUMBAGO WITH SCIATICA, RIGHT SIDE 09/16/2019 BALTAZAR, CELESTINO S BALANCE RECESSER Ot M54.42 LUMBAGO WITH SCIATICA, LEFT SIDE [...] 6.8 G/DL 6.0-8.5 ALBUMIN 3.9 G/DL 2.9-4.4 DVSPG-5-AHPRHIKA 0.3 G/DL 0.0-0.4 IRXPI-8-CUQTHYCH 0.6 G/DL 0.4-1.0 BETA GLOBULIN 1.0 G/DL 0.7-1.3 GAMMA GLOBULIN 1.0 G/DL 0.4-1.8 M-SPIKE NOT OBSERVED G/DL NOT OBSERVED GLOBULIN, TOTAL 2.9 G/DL 2.2-3.9 A/G RATIO 1.3 0.7-1.7 PLEASE NOTE: PROTEIN ELECTROPHORESIS SCAN WILL FOLLOW VIA COMPUTER, MAIL, OR.brCOURIER DELIVERY. PDF . Protein Electro.,S - 12/24/17 15:50 Protein, Total, Serum 6.8 g/dL 6.0-8.5 Albumin 3.9 g/dL 2.9-4.4 Vnyyt-9-Qamjjjxo 0.3 g/dL 0.0-0.4 Lfbue-0-Hnedzkmp 0.6 g/dL 0.4-1.0 Beta Globulin 1.0 g/dL [...] 30-150 ALBUMIN, U 31.5 % NOT ESTAB. BQOBF-1-WVTJWGEW, U 14.0 % NOT ESTAB. BIWQX-1-XUMCVXSL, U 19.4 % NOT ESTAB. BETA GLOBULIN, U 7.4 % NOT ESTAB. GAMMA GLOBULIN, U 27.7 % NOT ESTAB. M-SPIKE, % NOT OBSERVED % NOT OBSERVED PDF . Heavy Metals Profile II, Urine - 8 11:12 ARSENIC (TOTAL),U NONE DETECTED UG/L 0-5 0 ARSENIC(INORGANIC),U NONE DETECTED UG/L 0-19 CREATININE(MANAGER ROOFING),U 0.64 G/L 0.30-3.00 LEAD, URINE NONE DETECTED UG/L 0-49 MERCURY, URINE NONE DETECTED UG/L 0-19 CADMIUM, URINE NONE DETECTED UG/L NONE D ETECTED Protein Electro, 24-Hour Urine - 8 11:12 Protein,Total,Urine 4.4 mg/dL Not Estab. Prot,24hr calculated 55 mg/24 hr 30-150 Albumin, U 31.5 % NOT ESTAB. Udvdc-6-Pwigvirq, U 14.0 % NOT ESTAB. Oxhjs-2-Nzssvsbd, U 19.4 % NOT ESTAB. Beta Globulin, U 7.4 % NOT ESTAB. Gamma Globulin, U 27.7 % NOT ESTAB. M-Mehran, % Not Observed % Not Observed Please note: Comment PDF . Heavy Metals Profile II, Urine - 8 11:12 Creatinine(Technical Project Lead),U 0.64 g/L 0.30-3.00 Arsenic (Total),U None Detected [...] 22:02 TROPONIN I FS < 0.30 <0.30 Serum or plasma creatine kinase measurem ent (enzymatic activity/volume) - 09/12/19 22:02 Serum or plasma creatine kinase measurem ent (enzymatic activity/volume) 2407 U/L 30-200 Complete urinalysis with reflex to cultu re [...] sediment by l ight microscopy 2-5 NRG Bacterial urine culture - 09/12/19 22:40 Bacterial urine culture NG NRG Comprehensive metabolic panel - 09/13/19 05:24 Serum or plasma sodium measurement (moles/volume) 136 mmol/L 135-145 Serum or plasma potassium measurement (moles/volume) 4.4 mmol/L 3.6-5.0 Serum or plasma chloride measurement (moles/volume) 107 mmol/L 98-107 Carbon dioxide 18 mmol/L 21-32 Serum or plasma anion gap determination (moles/volume) 11 mmol/L 5-14 Serum or plasma urea nitrogen measurement (mass/volume ) 20 mg/dL 7-18 Serum or plasma creatinine measurement (mass/volume) 1.80 mg/dL 0.60-1.30 Serum or plasma urea nitrogen/creatinine mass ratio 11 NRG Serum or plasma creatinine measurement w ith calculation of estimated glomerular filtration rate 48 NRG Serum or plasma glucose measurement (mass/volume) 124 mg/dL 70-105 Serum or plasma calcium measurement (mass/volume) 7.9 mg/dL 8.5-10.1 Serum or plasma total bilirubin measurement (mass/volu me) 0.7 mg/dL 0.1-1.0 Serum or plasma alkaline phosphatase ashia surement (enzymatic activity/volume) 62 U/L 40-136 Serum or plasma aspartate aminotransfera se measurement (enzymatic activity/volume) 46 U/L 5-34 Serum or plasma alanine aminotransferase measurement (enzymatic activity/volume) 34 U/L 0-55 Serum or plasma protein measurement (mass/volume) 6.3 g/dL 6.4-8.2 Serum or plasma albumin measurement (mass/volume) 3.7 g/dL 3.2-4.5 CALCIUM CORRECTED 8.1 mg/dL 8.5-10.1 Complete urinalysis with reflex to cultu re - 09/13/19 09:37 Urine color determination YELLOW NRG Urine clarity determination CLEAR NR G Urine pH measurement by test strip 5.0 5-9 Specific gravity of urine by test strip >= 1.016-1.022 Urine protein assay by test strip, semi-quantitative TRACE NEGATIVE Urine glucose detection by automated test strip NE GATIVE NEGATIVE Erythrocytes detection in urine sediment by light micr oscopy NEGATIVE NEGATIVE Urine ketones detection by automated test strip NE GATIVE NEGATIVE Urine nitrite detection by test strip NEGATIVE NEGATIVE Urine total bilirubin detection by test strip 1+ NEGATIVE Urine urobilinogen measurement by automated test strip (mass/volume) 0.2 mg/dL < = 1.0 Urine leukocyte esterase detection by dipstick NEG ATIVE NEGATIVE Automated urine sediment erythrocyte cou nt by microscopy (number/high power field) NONE NRG Automated urine sediment leukocyte count by microscopy (number/high power field) NONE NRG Bacteria detection in urine sediment by light microsco py TRACE NRG Crystals detection in urine sediment by light microsco py NONE NRG Casts detection in urine sediment by light microscopy NONE NRG Mucus detection in urine sediment by light microscopy NEGATIVE NRG Complete urinalysis with reflex to culture NO NRG Comprehensive metabolic panel - 09/14/19 05:10 Serum or plasma sodium measurement (moles/volume) 141 mmol/L 135-145 Serum or plasma potassium measurement (moles/volume) 4.8 mmol/L 3.6-5.0 Serum or plasma chloride measurement (moles/volume) 115 mmol/L 98-107 Carbon dioxide 19 mmol/L 21-32 Serum or plasma anion gap determination (moles/volume) 7 mmol/L 5-14 Serum or plasma urea nitrogen measurement (mass/volume ) 16 mg/dL 7-18 Serum or plasma creatinine measurement (mass/volume) 1.13 mg/dL 0.60-1.30 Serum or plasma urea nitrogen/creatinine mass ratio 14 NRG Serum or plasma creatinine measurement w ith calculation of estimated glomerular filtration rate > NRG Serum or plasma glucose measurement (mass/volume) 96 mg/dL 70-105 Serum or plasma calcium measurement (mass/volume) 8.0 mg/dL 8.5-10.1 Serum or plasma total bilirubin measurement (mass/volu me) 0.7 mg/dL 0.1-1.0 Serum or plasma alkaline phosphatase ashia surement (enzymatic activity/volume) 64 U/L 40-136 Serum or plasma aspartate aminotransfera se measurement (enzymatic activity/volume) 32 U/L 5-34 Serum or plasma alanine aminotransferase measurement (enzymatic activity/volume) 29 U/L 0-55 Serum or plasma protein measurement (mass/volume) 5.6 g/dL 6.4-8.2 Serum or plasma albumin measurement (mass/volume) 3.5 g/dL 3.2-4.5 CALCIUM CORRECTED 8.4 mg/dL 8.5-10.1 Complete blood count (CBC) with automate d white blood cell (WBC) differential - 09/14/19 05:10 Blood leukocytes automated count (number/volume) 4.1 10*3/uL 4.3-11.0 Blood erythrocytes automated count (number/volume) 4.18 10*6/uL 4.35-5.85 Venous blood hemoglobin measurement (mass/volume) 13.4 g/dL 13.3-17.7 Blood hematocrit (volume fraction) 41 % 40-54 Automated erythrocyte mean corpuscular volume 98 [ foz_us] 80-99 Automated erythrocyte mean corpuscular h emoglobin (mass per erythrocyte) 32 pg 25-34 Automated erythrocyte mean corpuscular h emoglobin concentration measurement (mass/volume) 33 g/dL 32-36 Automated erythrocyte distribution width ratio 13. 3 % 10.0- 14.5 Automated blood platelet count (count/volume) 129 10*3/uL 130-400 Automated blood platelet mean volume measurement 10.4 [foz_us] 7.4-10.4 Automated blood neutrophils/100 leukocytes 62 % 42-75 Automated blood lymphocytes/100 leukocytes 29 % 12-44 Blood monocytes/100 leukocytes 8 % 0-12 Automated blood eosinophils/100 leukocytes 1 % 0-10 Automated blood basophils/100 leukocytes 0 % 0-10 Blood neutrophils automated count (number/volume) 2.6 10*3 1.8-7.8 Blood lymphocytes automated count (number/volume) 1.2 10*3 1.0-4.0 Blood monocytes automated count (number/volume) 0. 3 10*3 0.0-1.0 Automated eosinophil count 0.1 10*3/uL 0 .0-0.3 Automated blood basophil count (count/volume) 0.0 10*3/uL 0.0-0.1 Encounters ACCT No. Visit Date/Time Discharge Status Pt. Type Provider Facility Loc./Unit Complaint [id number] 2018 10:51:00 2018 23:59: 00 DIS Outpatient CAMILA PIERCE [id number] 12/26/2017 10:59:00 12/26/2017 23:59: 00 DIS Outpatient LUIZ KALLI [id number] 12/24/2017 15:40:00 12/24/2017 23:59: 00 DIS Outpatient LUIZ KALLI [id number] 12/24/2017 14:44:00 12/24/2017 23:59: 00 DIS Outpatient KALLI DEE [id number] 04/13/2019 08:00:00 04/13/2019 23:59: 59 CLS Outpatient CELESTINO LEDESMA [facility] [id number] 04/22/2019 08:45:00 Document Registration [id number] 03/02/2019 14:00:00 Document Registration [id number] 09/26/2017 09:20:00 Document Registration [id number] 07/26/2017 09:20:00 Document Registration [id number] 09/16/2019 16:52:00 18:07:00 DIS Emergency ROVENSTETHAN WELSH DO [facility] ER FS [place]EE [place] [facility] [id number] 09/12/2019 23:16:00 10:46:00 DIS Inpatient YRIS GODFREY, GABI Muniz [facility] 4TH ACUTE RENAL FAILURE,DEHYDRATION [id number] 04/09/2019 14:34:00 23:59:59 CLS Outpatient CELESTINO LEDESMA [employer] [facility] RAD FS M54.41 M54.42 [id number] 09/09/2018 07:12:00 23:59:59 CLS Outpatient MISAEL SAMUELS DO [facility] [facility] CARD NAUSEA,ABD FULLNESS [id number] 08/20/2018 14:07:00 16:54:00 DIS Emergency RENETTA NOGUEIRA BALANCE RECESSER [facility] ER HERNIA [id number] 08/19/2018 14:56:00 23:59:59 CLS Outpatient CELESTINO LEDESMA BALANCE RECESSER [facility] RAD FS M25.571 [id number] 04/09/2018 08:59:00 14:30:00 DIS Outpatient ARVIND MARTINEZ MISAEL B [facility] SDC UMBILICAL HERNIA [id number] 04/08/2018 05:35:00 09:38:00 DIS Outpatient ARVIND DO MISAEL B [facility] PREOP UMBILICAL HERNIA [id number] 04/07/2018 09:13:00 12:21:00 DIS Outpatient ARVIND MARTINEZ MISAEL B [facility] ENDO ABD PAIN [id number] 04/04/2018 10:59:00 23:59:59 CLS Outpatient ARVIND MARTINEZ MISAEL B [facility] PREOP COLONOSCOPY/EGD [id number] 04/01/2018 14:30:00 10:49:00 DIS Inpatient ARVIND MARTINEZ MISAEL B [facility] 4TH ACUTE DIVERTICULITIS [id number] 01/28/2018 12:05:00 23:59:59 CLS Outpatient DONALDO PEREZ MD [facility] RAD ABSENCE ATTACK [id number] 07/30/2017 10:54:00 23:59:59 CLS Outpatient DONALDO PEREZ MD [facility] RAD NEAR SYNCOPE [id number] 12/27/2017 19:10:00 Document Registration [id number] 12/27/2017 18:12:00 Document Registration [id number] 12/31/2017 16:26:00 Document Registration [id number] 12/27/2017 20:11:00 Document Registration
== END 2019-09-16 18:07 | disposition home or self-care (01) ==
LOC: EDUNIT# 16:51 → ER FS 16:52
DX: T63.441A Toxic effect of venom of bees, accidental (unintentional), initial encounter (principal); M10.9 Gout, unspecified; Z88.5 Allergy status to narcotic agent; Z88.8 Allergy status to other drugs, medicaments and biological substances
CPT/HCPCS: 99284

== ENCOUNTER 2021-05-09 15:45 | Emergency (ER) | payer BC, MEDICARE ==
[~2021-05-09] VITALS: Ht 172 cm; Wt 93.0 kg
[~2021-05-09 15:45] MED LIST changes: -CIPR500T4 PO; +CIPR500T5 PO; +FAMO-119 PO; +PRD50T PO
[2021-05-09 16:07] VITALS: BP 176/101
--- NOTE | 2021-05-09 16:43 | ED Neck-Back Pain/Injury ---
General Chief Complaint: Head/Cervical Problems Stated Complaint: NECK SWELLING Nursing Triage Note: chornic neck pain, injury x 30 years ago in [place]. diagnosed by neursergeon with [facility] to have a neck strain. patient left neurosergeon and did not follow up as he was upset when the sergeon popped his neck. Source of Information: Patient Exam Limitations: No Limitations History of Present Illness Date Seen by Provider: May 09, 2021 Time Seen by Provider: 16:00 Initial Comments Patient is a 56-year-old -[place] male who presents with chronic neck and back pain for 30 years with increased cervical pain for the past 3 months. Patient is currently under the care of Dr. Kerr who is a spine surgeon at [facility]. Does not currently have a primary care provider or sign painter. Patient states he was evaluated by his physical therapist yesterday instructed to go to the emergency department for referral to specialist for second opinion. Patient reports chronic numbness in his hand. He denies motor weakness. Reports diffuse lower cervical pain extending into his upper trapezius muscle attachments bilaterally. He denies new or aggravating symptoms. He has had numerous MRIs and emergency visits at various health systems in the [facility]. Location: C-Spine, Paraspinous Muscles Timing/Duration: 1-3 Hours Severity: Moderate Pain/Injury Location: Other Radiation: Other Method of Injury: Other Modifying Factors: Improves With Other Allergies and Home Medications Allergies Coded Allergies: citalopram (Unverified Allergy, Unknown, 04/01/18) ALLERGY INFO FROM ADMISSION ORDER morphine (Verified Allergy, Unknown, RASH, 04/07/18) Patient Home Medication List Home Medication List Reviewed: Yes Allopurinol (Allopurinol) 300 Mg Tablet, 300 MG PO DAILY, (Reported) Entered as Reported by: CELESTINO ZARAGOZA on 04/01/18 1549 Ascorbate Calcium (Vitamin C) 500 Mg Tablet, 500 MG PO DAILY, (Reported) Entered as Reported by: CELESTINO ZARAGOZA on 04/01/18 1546 Cyanocobalamin (Vitamin B-12) (Vitamin B-12) 1,000 Mcg Tablet, 1,000 MCG PO DAILY, (Reported) Entered as Reported by: CELESTINO ZARAGOZA on 04/01/18 1546 Famotidine (Pepcid) 20 Mg Tablet, 20 MG PO BID Prescribed by: ETHAN SANCHEZ on 09/16/191802 Ondansetron (Ondansetron Odt) 8 Mg Tab.rapdis, 8 MG PO Q8H Prescribed by: MISAEL SAMUELS on 04/02/181099 Prednisone (Prednisone) 50 Mg Tab, 50 MG PO DAILY Prescribed by: ETHAN BENSONSTANITHA on 09/16/191802 Review of Systems Constitutional: see HPI EENTM: see HPI Respiratory: see HPI Cardiovascular: see HPI Gastrointestinal: see HPI Genitourinary: see HPI Musculoskeletal: see HPI Skin: see HPI Psychiatric/Neurological: See HPI All Other Systems Reviewed Negative Unless Noted: Yes Past Kcrotjm-Skxtfp-Cslhpl Hx Patient Social History Tobacco Use?: Yes Tobacco type used: Cigarettes Smoking Status: Current Everyday Smoker Alcohol Use?: Yes Alcohol type: Beer Alcohol Frequency: Once in a while Seasonal Allergies Seasonal Allergies: No Past Medical History Surgeries: Yes (ROTATOR CUFF, RIGHT WRIST, HERNIA) Abdominal Respiratory: No Cardiac: No Neurological: Yes (NEUROPATHY D/T GOUT, HX OF OCHOA) Neuropathy Genitourinary: No Gastrointestinal: Yes Abdominal Hernia, Diverticulosis Musculoskeletal: No Endocrine: No HEENT: No Cancer: No Psychosocial: No Integumentary: Yes (BURN) Blood Disorders: No Family Medical History FH: colonic diverticulitis No Pertinent Family Hx Physical Exam Vital Signs Vital Signs - First Documented 05/09/21 15:58 Temp 35.9 Pulse 102 Resp 18 B/P (MAP) 176/101 Pulse Ox 97 O2 Delivery Room Air Capillary Refill : Less Than 3 Seconds Height, Weight, BMI Height: 5'9.00" Weight: 192lbs. 0.0oz. [id number]; 31.00 BMI Method:Stated General Appearance: Anxious, Mild Distress Neck: Supple, Other (Diffuse posterior cervical pain sensitive to light touch.) Cardiovascular: Regular Rate, Rhythm Respiratory: Lungs Clear Neurologic/Psychiatric: Alert, Oriented x3, Other (Limited upper extremity motor exam due to patient poor cooperation.) Progress/Results/Core Measures Results/Orders Vital Signs/I&O 05/09/21 05/09/21 15:58 16:07 Temp 35.9 35.9 Pulse 102 102 Resp 18 20 B/P (MAP) 176/101 176/101 (126) Pulse Ox 97 97 O2 Delivery Room Air Room Air Blood Pressure Mean: 126 Departure Communication (Admissions) Patient with chronic neck and back pain. Difficult to evaluate in the emergency department due to sensitivity. He denies new symptoms or progression of underlying complaint. His pain is poorly controlled. I did offer to get the patient injections of NSAIDs and muscle relaxants which she declined. I did offer to discharge the patient home on a Medrol Dosepak which she declined. I explained to the patient I did not have a s local spinal surgeon within the health system to refer him for a second opinion which he is requesting. I recommend that he follow-up with a local primary care provider for further management coordination of his chronic neck pain. I spent greater than 40 minutes talking with the patient and documenting medical record. All questions and medical issues were addressed to the best my ability, but not to the patient's stated satisfaction. Impression Primary Impression: Chronic back pain Disposition: 01 HOME, SELF-CARE Condition: Unchanged Departure-Patient Inst. Decision time for Depature: 16:43 Referrals: NO,LOCAL PHYSICIAN (PCP/Family) Primary Care Physician Patient Instructions: Chronic Neck Pain (DC) Add. Discharge Instructions: Please establish with a local primary care doctor to help coordinate and arrange for second opinion and referral to a spine surgeon. In the meantime, please follow-up with Dr. Kerr's office. All discharge instructions reviewed with patient and/or family. Voiced understanding. ABDELRAHMAN BUTT DO May 09, 2021 16:43
== END 2021-05-09 16:50 | disposition home or self-care (01) ==
LOC: EDUNIT# 15:45 → ER FS 15:46
DX: G89.29 Other chronic pain (principal); M54.2 Cervicalgia; F17.210 Nicotine dependence, cigarettes, uncomplicated
CPT/HCPCS: 99281